=== PATIENT | female | born 1985 ===

== ENCOUNTER 2022-01-29 22:08 | Outpatient (CLI) | payer OTHER ==
[2022-01-30 00:49] LABS: Bacteria,Urine 1+ /HPF (Negative); Bilirubin,Urine NEG (Negative); Blood,Urine NEG (Negative); Color,Urine Yellow (Yellow); Mucus,Urine FEW /HPF; Protein,Urine <15 mg/dL mg/dL (Negative); RBC,Urine < 1.0 /HPF (0.0-6.0); Urobilinogen,Urine < 2.0 mg/dL (<2.0)
[2022-01-30] MEDS ORDERED: LIDOCAINE-MPF (1%) 10 MG/1 ML VIAL 5 ML INFILTRATI ONE (02:05)
--- NOTE | 2022-01-30 02:44 | Ultrasound Report ---
ULTRASOUND OBSTETRIC INDICATION / CLINICAL INFORMATION: WELLBEING. Clinical Gestational Age (GA): 19.4 weeks TECHNIQUE: Transabdominal. COMPARISON: None available. FINDINGS: There is a single intrauterine . Biparietal Diameter = 4.5 cm = 19 weeks, 5 day(s). Head Circumference = 16.6 cm = 19 weeks, 2 day(s). Abdominal Circumference = 14.0 cm = 19 weeks, 3 day(s). Femur Length = 2.7 cm = 18 weeks, 2 day(s). Average Ultrasound Age (AUA) = 19 weeks, 1 day(s). Heart Rate: 152 beats per minute. Estimated Weight in grams (if calculated): 267 Estimated Weight Growth Percentile (if calculated): Position: cephalic. Cervix: closed. Length in cm (if measured): Placenta: anterior and free of the os. No placental abruption Amniotic Fluid Volume: normal Amniotic Fluid Index (ZAY) in cm (if calculated): . Maternal Adnexa: No significant abnormality. IMPRESSION: 1. Single, living intrauterine with estimated sonographic age of 19 weeks, 1 day(s). 2. No significant sonographic abnormality. Signer Name: Yousuf Tracy MD Signed: 01/30/2022 2:39 AM Workstation Name: [id number]
[2022-01-30 03:13] VITALS: BP 108/61
== END 2022-01-30 03:30 | disposition home or self-care (01) ==
LOC: TRG 22:08 → APU 22:10 → TRG 01-30 03:30
PROVIDERS: ATTEND Obstetrics & Gynecology
DX: O26.892 Other specified pregnancy related conditions, second trimester (principal); R10.30 Lower abdominal pain, unspecified; Z87.891 Personal history of nicotine dependence; Z3A.19 19 weeks gestation of pregnancy
CPT/HCPCS: 76816; 81001; 96372; J0696; J3490; 76805

== ENCOUNTER 2022-02-16 18:51 | Outpatient (CLI) | payer OTHER ==
[2022-02-16 19:16] VITALS: BP 106/64
[2022-02-16 20:29] LABS: Hematocrit 34.8 % (30.3-42.9); Hemoglobin 11.2 gm/dl (10.1-14.3); Mean Corpuscular HGB Conc 32 % (30-34); Mean Corpuscular Volume 90 fl (79-97); Platelet Count 252 K/mm3 (140-440); Red Blood Count 3.85 M/mm3 (3.65-5.03); Red Cell Distribution Width 14.8 % (13.2-15.2)
[2022-02-16 21:13] LABS: Bilirubin,Urine NEG (Negative); Blood,Urine NEG (Negative); Color,Urine Colorless (Yellow); Protein,Urine <15 mg/dL mg/dL (Negative); Urobilinogen,Urine < 2.0 mg/dL (<2.0)
[2022-02-16 21:20] LABS: Bacteria,Urine 2+ /HPF (Negative)
--- NOTE | 2022-02-16 22:18 | Ultrasound Report ---
ULTRASOUND OBSTETRIC LIMITED INDICATION / CLINICAL INFORMATION: EFW, ZAY. Clinical Gestational Age (GA) in weeks, days: 20, 0 TECHNIQUE: Transabdominal and Transvaginal. COMPARISON: 01/29/2022 FINDINGS: HEART RATE (beats per minute): 138 AMNIOTIC FLUID INDEX (cm) = not calculated but within normal range subjective. (normal = 7-24 cm) PRESENTATION: Cephalic. Biparietal Diameter = 5.2 cm = 21, 6 weeks, days Head Circumference = 20.0 cm = 22, 1 weeks, days Abdominal Circumference = 80.0 cm = 22, 6 weeks, days Femur Length = 3.7 cm = 21, 5 weeks, days Average Ultrasound Age (AUA) = 22, 1 weeks, days Estimated weight 493 g. ADDITIONAL FINDINGS: Cervix is closed measuring 3.7 cm. IMPRESSION: 1. No significant abnormality. Signer Name: Jase Perez DO Signed: 02/16/2022 10:14 PM Workstation Name: [id number]
== END 2022-02-16 20:17 | disposition home or self-care (01) ==
LOC: TRG 18:51 → APU 18:57 → TRG 20:17
PROVIDERS: ATTEND Obstetrics & Gynecology
DX: O09.892 Supervision of other high risk pregnancies, second trimester (principal); Z3A.22 22 weeks gestation of pregnancy
CPT/HCPCS: 36415; 76815; 76816; 76817; 81001; 84112; 85027

== ENCOUNTER 2022-04-13 05:11 | Inpatient (IN) | payer OTHER ==
[2022-04-13] MEDS ORDERED: LACTATED RINGERS 1,000 ML ONE (05:43)
--- NOTE | 2022-04-13 06:58 | Ultrasound Report ---
Of the ultrasound INDICATION: well-being FINDINGS: Single live intrauterine in cephalic position. ZAY measures 15.4 cm. heart rate is 142 bpm. BPD measures 30 weeks 3 days. Head circumference 30 weeks 1 day. Abdominal circumfer ence 30 weeks 0 days. Femoral length 30 weeks 2 days. weight 15 12 g. IMPRESSION: Single live intrauterine as described above. Ultrasound age 30 weeks 2 days. Signer Name: Jama Contreras MD Signed: 04/13/2022 6:53 AM Workstation Name: [id number]
[2022-04-13] MEDS ORDERED: BUTORPHANOL 2 MG/1 ML INJ IV PRN (07:00)
[2022-04-13] MEDS ORDERED: AZITHROMYCIN 250 MG TAB PO STA (07:05)
--- NOTE | 2022-04-13 07:27 | History and Physical Report ---
History of Present Illness Date of examination: 04/13/22 Date of admission: 04/13/2022 Chief complaint: Leaking of fluid History of present illness: 36-year-old at 30 weeks gestation presents to OB triage complaining of sudden onset gush of fluid and continuous leaking of fluid. There is no vaginal bleeding. There is good movement. There are no contractions. In OB triage, the patient was suspected to have gross rupture membranes. ROM plus test is positive. The patient is admitted to labor and delivery under antepartum status for expectant management of premature rupture of membranes. 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 Family/Genetic History: none Social history: no significant social history - Obstetrical History Expected Date of Delivery: 06/22/22 Actual Gestation: 30 Week(s) 0 Day(s) : 2 Para: 0 Hx # Term Pregnancies: 0 Number of Pregnancies: 0 Spontaneous Abortions: 1 Induced : 0 Number of Living Children: 0 Medications and Allergies Allergies Allergy/AdvReac Type Severity Reaction Status Date / Time No Known Allergies Allergy Verified 01/30/22 02:32 Active Meds: Active Medications Acetaminophen (Acetaminophen 325 Mg Tab) 650 mg PO Q4H PRN PRN Reason: Pain, Mild (1-3) Betamethasone Acet/Betameth SodPhos (Betamet Acet/Betamet Na Ph 6 Mg/Ml Inj 5 Ml Mdv) 12 mg IM Q24HR PREMA Stop: 04/14/22 10:01 Butorphanol Tartrate (Butorphanol 2 Mg/1 Ml Inj) 1 mg IV Q2H PRN PRN Reason: Pain, Moderate(4-6) LABOR PAIN Lactated Ringer's (Lactated Ringers) 1,000 mls @ 125 mls/hr IV DIRECT PREMA Magnesium Sulfate (Magnesium Sulfate 40gm/1000ml) 40 gm in 1,000 mls @ 25 mls/hr IV DIRECT PREMA Stop: 04/14/22 07:59 Magnesium Sulfate (Magnesium Sulfate 4gm/100ml) 4 gm in 100 mls @ 300 mls/hr IV ONCE ONE Stop: 04/13/22 07:49 Review of Systems All systems: negative - Vital Signs Vital signs: Vital Signs Temp Resp Pulse Ox 98.2 F 14 100 04/13/22 05:23 04/13/22 05:23 04/13/22 05:23 Temp Pulse Resp BP Pulse Ox 98.2 F 98 H 14 114/59 100 04/13/22 05:23 04/13/22 06:43 04/13/22 05:23 04/13/22 05:30 04/13/22 06:43 - Physical Exam Breasts: Positive: normal Cardiovascular: Regular rate Lungs: Positive: Normal air movement Abdomen: Positive: normal appearance Genitourinary (Female): Positive: normal external genitalia, normal perenium Vulva: both: normal Vagina: Positive: normal moisture Uterus: Positive: enlarged Adnexa: both: normal Anus/Rectum: Positive: normal perianal skin Extremities: Positive: normal Deep Tendon Reflex Grade: Normal +2 - Obstetrical FHR: category 1 Uterine Contraction Monitor Mode: External Cervical Dilatation: 0 Uterine Contraction Pattern: Absent Results Abnormal lab results 04/13/22 Range/Units Unknown Membranes Rupture Positive A (Negative) All other labs normal. GBS culture ordered. Urine culture ordered. Gonorrhea/chlamydia DNA probe ordered. CBC ordered. Ultrasound: report reviewed (OB Ultrasound Limited= SLIUP. Vertex. Posterior plaenta. EFW= 1512 g (41st %-ile). ZAY= 15.4 cm.), image reviewed Assessment and Plan - Patient Problems (1) 30 weeks gestation of Current Visit: Yes Status: Acute Plan to address problem: care is up-to-date per the patient. Morning shift staff to obtain records from the office. (2) premature rupture of membranes (PPROM) with onset of labor within 24 hours of rupture in third trimester, antepartum Current Visit: Yes Status: Acute Plan to address problem: The patient appears to have gross rupture of membranes. ROM plus is positive. However, amniotic fluid index is 15.4 cm. Admit patient under antepartum status. Expectant management. Prolonged la tency. With Zithromax 1 g p.o. x1, ampicillin 2 g IV piggyback every 6 hours x48 hours and amoxicillin 500 mg p.o. every 8 hours x5 days to start 48 hours from now. Magnesium sulfate x24 hours for neuro prophylaxis was ordered. Betamethasone IM every 24 hours x2 doses to promote lung maturity was ordered. GBS culture, urine culture, gonorrhea/chlamydia DNA probes ordered. I recommend MFM consultation and NICU consultation. Expectant management for now until 34 weeks gestation. (3) AMA (advanced maternal age) multigravida 35+ Current Visit: Yes Status: Acute Plan to address problem: Morning shift obtain records from the office. Once records are obtained, evaluate for genetic screening. Maternal- medicine consultation is recommended.
[2022-04-13] MEDS ORDERED: MAGNESIUM SULFATE 4 GM/100 ML BAG IV ONE (07:30)
[2022-04-13 07:48] LABS: Hematocrit 33.5 % (30.3-42.9); Hemoglobin 10.8 gm/dl (10.1-14.3); Red Blood Count 3.81 M/mm3 (3.65-5.03)
[2022-04-13] MEDS ORDERED: MAGNESIUM SULFATE 40GM/1000ML 40 GM/1,000 ML BAG IV SCH (08:00)
[2022-04-13] MEDS: LACTATED RINGERS 1,000 ML IV SCH (08:45)
[2022-04-13] MEDS: BETAMET ACET/BETAMET NA PH 6 MG/ML INJ 5 ML MDV IM SCH (08:45)
[2022-04-13] MEDS: AMPICILLIN/NS 2 GM/100 ML 2 GM/100 ML BAG IV SCH ×2 (08:46→09:22)
[2022-04-13 12:17] LABS: Amphetamine Screen,Urine Negative; Benzodiazepines Screen,Urine Negative; Cannabinoid Screen,Urine Negative; Cocaine Screen,Urine Negative; Methadone Screen,Urine Negative; Opiate Screen,Urine Negative
[2022-04-13] MEDS: ACETAMINOPHEN 325 MG TAB PO PRN (12:28)
[2022-04-13 14:08] LABS: Alanine Aminotransferase 14 units/L (7-56); Blood Urea Nitrogen 8 mg/dL (7-17); Calcium 9.1 mg/dL (8.4-10.2); Hemolysis Index 0; Uric Acid 4.2 mg/dL (3.5-7.6)
[2022-04-13 14:20] LABS: BUN/Creatinine Ratio 27
--- NOTE | 2022-04-13 14:29 | XRay Report ---
CHEST 1 VIEW 04/13/2022 2:08 PM INDICATION / CLINICAL INFORMATION: shortness of breath, ; h/o lung abnormality. COMPARISON: None available. FINDINGS: SUPPORT DEVICES: None. HEART / MEDIASTINUM: No significant abnormality. LUNGS / PLEURA: No significant pulmonary abnormality. No significant pleural effusion. No pneumothora x. ADDITIONAL FINDINGS: No significant additional findings. IMPRESSION: 1. No acute abnormality of the chest. Signer Name: Derek Hodge MD Signed: 04/13/2022 2:25 PM Workstation Name: [id number]
[2022-04-13] MEDS ORDERED: VANCOMYCIN/NS 1 GM/250 ML 1 GM/250 ML BAG IV SCH (15:00)
--- NOTE | 2022-04-13 17:38 | Consultation ---
History of Present Illness Consult date: 04/13/22 Requesting physician: MARY KAY TURNER History of present illness: 36 YO EGA 30 wks admitted following SROM. She had a gush o fluid and has had a + ROM screen this on admission. She has orders for MgSO4, BMZ and IV antibiotics. She is wihtout complaints a this time. She denies any cramping, pressure LOF. 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 Family/Genetic History: none - Obstetrical History : 2 Medications and Allergies Allergies Allergy/AdvReac Type Severity Reaction Status Date / Time amoxicillin Allergy Shortness Verified 04/13/22 09:21 of Breath ampicillin Allergy Shortness Verified 04/13/22 09:21 of Breath Active Meds: Active Medications Acetaminophen (Acetaminophen 325 Mg Tab) 650 mg PO Q4H PRN PRN Reason: Pain, Mild (1-3) Last Admin: 04/13/22 12:28 Dose: 650 mg Betamethasone Acet/Betameth SodPhos (Betamet Acet/Betamet Na Ph 6 Mg/Ml Inj 5 Ml Mdv) 12 mg IM Q24HR PREMA Stop: 04/14/22 10:01 Last Admin: 04/13/22 08:45 Dose: 12 mg Butorphanol Tartrate (Butorphanol 2 Mg/1 Ml Inj) 1 mg IV Q2H PRN PRN Reason: Pain, Moderate(4-6) LABOR PAIN Lactated Ringer's (Lactated Ringers) 1,000 mls @ 125 mls/hr IV DIRECT PREMA Last Admin: 04/13/22 08:45 Dose: 75 mls/hr Magnesium Sulfate (Magnesium Sulfate 40gm/1000ml) 40 gm in 1,000 mls @ 25 mls/ hr IV DIRECT PREMA Stop: 04/14/22 07:59 Last Admin: 04/13/22 09:20 Dose: 1 gm/hr, 25 mls/hr Vancomycin HCl (Vancomycin/Ns 1 Gm/250 Ml) 1 gm in 250 mls @ 166.667 mls/hr IV Q12H PREMA; Protocol Stop: 04/15/22 14:59 Last Admin: 04/13/22 16:42 Dose: 166.667 mls/hr - Vital Signs Vital signs: Vital Signs Temp Resp Pulse Ox 98.2 F 14 100 04/13/22 05:23 04/13/22 05:23 04/13/22 05:23 Temp Pulse Resp BP Pulse Ox 98.1 F 112 H 18 123/60 99 04/13/22 15:38 04/13/22 17:26 04/13/22 15:38 04/13/22 17:08 04/13/22 17:26 - Obstetrical FHR: category 1 Uterine Contraction Pattern: Absent Results Result Diagrams: 04/13/22 06:35 04/13/22 12:11 Abnormal lab results 04/13/22 04/13/22 04/13/22 Range/Units 12:11 12:11 12:11 Sodium 136 L (137-145) mmol/L Creatinine 0.3 L (0.6-1.2) mg/dL Magnesium 3.20 H 3.10 H (1.7-2.3) mg/dL Membranes Rupture (Negative) 04/13/22 Range/Units Unknown Sodium (137-145) mmol/L Creatinine (0.6-1.2) mg/dL Magnesium (1.7-2.3) mg/dL Membranes Rupture Positive A (Negative) All other labs normal. Ultrasound: report reviewed Chest x-ray: report reviewed Assessment and Plan IMPRESSIONS: 1. IUP 30 weeks, with normal growth 2. Confirmed SROM with good residual ZAY noted earlier today 3. Reassuring tracing 4. Receiving BZ, MgSO4, Vancomycin 5. PCN allergy 6. Benign course prior to SROM 7. Low risk on NIPT, ONTD, GTT screening 8. Cat 1 tracing 9. No sign of labor, chorio, or compromise RECOMMENDATIONS: 1. I Agree with present management 2. Twice weekly BPP 3. Deliver for ususal OB indications, or at 34 weeks 4. [facility] will follow-up as requested
--- NOTE | 2022-04-13 18:02 | Event Note ---
Date: 04/13/22 pt evaluated and pt c/o shortness of breath. CXR done and same normal and pt reassured. Nurse told me that vanco given thru mag sulfate port, and pt feels very flushed. Nurse told to give med thru a separate port and slowly. Abx with vanco and zithro acceptable for 7day treatment. All questions encouraged and answered.
--- NOTE | 2022-04-13 19:58 | Consultation ---
Consult Note - Parent Education I met with parent(s) and discussed the following:: Need for NICU admission, Poss ible need for intubation and surfactant or other resp support, Temperature regulation, Head ultrasounds to evaluate IVH, Eye exams for ROP screening, Possible need for IV fluids/TPN and IV antibiotics, Possible need for umbilical lines, Importance of providing breast milk & encouraged pumping aft delivery, Donor breast milk if baby meets criteria after , Slow feeding advancement and monitoring of tolerance. NG/OG feeds, Need to monitor for jaundice, Data for survival & survival without significant co-morbidities Parent(s) demonstrated understanding of all the information:: Yes Additional Comment: Ms. Solano is a very pleasant 36 yo G2 addmitted to [facility] at 30 weeks gestation after feeling a gush of fluid which was later tested positive on ROM screen. Magnesium sulfate, betamethasone and IV antibiotics were started. Her labs are negative and GBS is not yet done (see PATIENT SERVICES SPECIALIST - H&P). A medical channel director was used to translate education to mother and her significant other in room. She verbalized understanding and asked apporopiate questions. She was assured that if her baby delivers sanjay, the Team would be in attendance. Assessment and Plan - Plan Plan: Agree with Mag & steroids Will attend delivery Please call NICU with questions
[2022-04-13] MEDS ORDERED: ERYTHROMYCIN BASE 250 MG CAPSULE DR PO SCH (20:00)
[2022-04-14] MEDS: GENTAMICIN/NS 80 MG/100 ML 100 ML IV SCH ×3 (00:57→17:49)
[2022-04-14] MEDS: ACETAMINOPHEN 325 MG TAB PO PRN (04:05)
[2022-04-14] MEDS: LACTATED RINGERS 1,000 ML IV SCH (09:01)
[2022-04-14] MEDS: BETAMET ACET/BETAMET NA PH 6 MG/ML INJ 5 ML MDV IM SCH (10:35)
--- NOTE | 2022-04-14 17:43 | Progress Note ---
Assessment and Plan A IUP @ 30 09/03 weeks PPROM Epigastric pain RLQ pain Decrease FM S/p Magnesium Sulfate for neuroprotection S/p Celestone P Abdominal US - r/o gallstones RLQ pain /Decrease FM - OB US - r/o abruption. BPP. Monitor for chorioamnionitis Deliver at 34 weeks or before if indicated Continue hospital bed rest Subjective Date of service: 04/14/22 Principal diagnosis: PPROM @ 30 09/03 Interval history: Pt. c/o RUQ pain starting @ 330a She denies n/v, headache, blurry vision or scotoma. No further LOF, fever, chills SOB or ctx. Decrease FM. Pt. also c/o RLQ pain lateral and below the umbilicus. Objective - Constitutional Vitals: Vital Signs - 12hr 04/14/22 04/14/22 04/14/22 05:46 05:51 05:56 Temperature Pulse Rate 91 H 83 86 Respiratory Rate Blood Pressure Blood Pressure [Right] O2 Sat by Pulse 98 98 97 Oximetry O2 Sat by Pulse Oximetry [ Bilateral] 04/14/22 04/14/22 04/14/22 06:01 06:06 06:11 Temperature Pulse Rate 83 82 84 Respiratory Rate Blood Pressure Blood Pressure [Right] O2 Sat by Pulse 97 97 97 Oximetry O2 Sat by Pulse Oximetry [ Bilateral] 04/14/22 04/14/22 04/14/22 06:16 06:21 06:26 Temperature Pulse Rate 85 81 91 H Respiratory Rate Blood Pressure Blood Pressure [Right] O2 Sat by Pulse 98 97 98 Oximetry O2 Sat by Pulse Oximetry [ Bilateral] 04/14/22 04/14/22 04/14/22 06:31 06:36 06:41 Temperature Pulse Rate 86 95 H 88 Respiratory Rate Blood Pressure Blood Pressure [Right] O2 Sat by Pulse 98 98 100 Oximetry O2 Sat by Pulse Oximetry [ Bilateral] 04/14/22 04/14/22 04/14/22 06:46 06:51 06:56 Temperature Pulse Rate 78 78 81 Respiratory Rate Blood Pressure Blood Pressure [Right] O2 Sat by Pulse 100 99 98 Oximetry O2 Sat by Pulse Oximetry [ Bilateral] 04/14/22 04/14/22 04/14/22 07:01 07:06 07:11 Temperature Pulse Rate 80 84 80 Respiratory Rate Blood Pressure Blood Pressure [Right] O2 Sat by Pulse 99 98 98 Oximetry O2 Sat by Pulse Oximetry [ Bilateral] 04/14/22 04/14/22 04/14/22 07:16 07:21 07:26 Temperature Pulse Rate 77 83 84 Respiratory Rate Blood Pressure Blood Pressure [Right] O2 Sat by Pulse 99 98 98 Oximetry O2 Sat by Pulse Oximetry [ Bilateral] 04/14/22 04/14/22 04/14/22 07:31 07:36 07:41 Temperature Pulse Rate 93 H 76 82 Respiratory Rate Blood Pressure Blood Pressure [Right] O2 Sat by Pulse 97 99 99 Oximetry O2 Sat by Pulse Oximetry [ Bilateral] 04/14/22 04/14/22 04/14/22 07:46 07:51 07:56 Temperature Pulse Rate 82 83 84 Respiratory Rate Blood Pressure Blood Pressure [Right] O2 Sat by Pulse 97 97 97 Oximetry O2 Sat by Pulse Oximetry [ Bilateral] 04/14/22 04/14/22 04/14/22 08:01 08:06 08:11 Temperature Pulse Rate 94 H 86 83 Respiratory Rate Blood Pressure Blood Pressure [Right] O2 Sat by Pulse 97 97 97 Oximetry O2 Sat by Pulse Oximetry [ Bilateral] 04/14/22 04/14/22 04/14/22 08:16 08:21 08:26 Temperature Pulse Rate 86 83 86 Respiratory Rate Blood Pressure Blood Pressure [Right] O2 Sat by Pulse 96 97 97 Oximetry O2 Sat by Pulse Oximetry [ Bilateral] 04/14/22 04/14/22 04/14/22 08:31 08:36 08:41 Temperature Pulse Rate 113 H 80 81 Respiratory Rate Blood Pressure Blood Pressure [Right] O2 Sat by Pulse 97 97 97 Oximetry O2 Sat by Pulse Oximetry [ Bilateral] 04/14/22 04/14/22 04/14/22 08:46 08:51 08:56 Temperature Pulse Rate 79 93 H 94 H Respiratory Rate Blood Pressure Blood Pressure [Right] O2 Sat by Pulse 97 98 99 Oximetry O2 Sat by Pulse Oximetry [ Bilateral] 04/14/22 04/14/22 04/14/22 08:58 09:00 09:01 Temperature 98.4 F Pulse Rate 85 Respiratory 18 Rate Blood Pressure 120/62 Blood Pressure [Right] O2 Sat by Pulse 100 100 Oximetry O2 Sat by Pulse 99 Oximetry [ Bilateral] 04/14/22 04/14/22 04/14/22 09:06 09:11 09:16 Temperature Pulse Rate 86 94 H 82 Respiratory Rate Blood Pressure Blood Pressure [Right] O2 Sat by Pulse 98 94 97 Oximetry O2 Sat by Pulse Oximetry [ Bilateral] 04/14/22 04/14/22 04/14/22 09:21 09:26 09:31 Temperature Pulse Rate 100 H 94 H 85 Respiratory Rate Blood Pressure Blood Pressure [Right] O2 Sat by Pulse 99 100 99 Oximetry O2 Sat by Pulse Oximetry [ Bilateral] 04/14/22 04/14/22 04/14/22 09:36 09:41 09:46 Temperature Pulse Rate 89 93 H 95 H Respiratory Rate Blood Pressure Blood Pressure [Right] O2 Sat by Pulse 99 99 99 Oximetry O2 Sat by Pulse Oximetry [ Bilateral] 04/14/22 04/14/22 04/14/22 09:51 09:56 10:01 Temperature Pulse Rate 94 H 93 H 86 Respiratory Rate Blood Pressure 109/60 Blood Pressure [Right] O2 Sat by Pulse 99 98 98 Oximetry O2 Sat by Pulse Oximetry [ Bilateral] 04/14/22 04/14/22 04/14/22 10:06 10:11 10:16 Temperature Pulse Rate 97 H 90 96 H Respiratory Rate Blood Pressure Blood Pressure [Right] O2 Sat by Pulse 98 99 100 Oximetry O2 Sat by Pulse Oximetry [ Bilateral] 04/14/22 04/14/22 04/14/22 10:21 10:26 10:31 Temperature Pulse Rate 90 113 H 102 H Respiratory Rate Blood Pressure Blood Pressure [Right] O2 Sat by Pulse 99 99 100 Oximetry O2 Sat by Pulse Oximetry [ Bilateral] 04/14/22 04/14/22 04/14/22 10:36 10:41 13:06 Temperature Pulse Rate 97 H 108 H 97 H Respiratory Rate Blood Pressure 108/55 Blood Pressure [Right] O2 Sat by Pulse 99 99 98 Oximetry O2 Sat by Pulse Oximetry [ Bilateral] 04/14/22 04/14/22 04/14/22 13:11 13:16 13:21 Temperature 98.4 F Pulse Rate 99 H 96 H 103 H Respiratory 18 Rate Blood Pressure Blood Pressure 108/55 [Right] O2 Sat by Pulse 98 98 98 Oximetry O2 Sat by Pulse Oximetry [ Bilateral] 04/14/22 04/14/22 04/14/22 13:26 13:31 13:36 Temperature Pulse Rate 104 H 99 H 100 H Respiratory Rate Blood Pressure Blood Pressure [Right] O2 Sat by Pulse 99 99 99 Oximetry O2 Sat by Pulse Oximetry [ Bilateral] 04/14/22 04/14/22 04/14/22 13:41 13:47 13:52 Temperature Pulse Rate 106 H 114 H 102 H Respiratory Rate Blood Pressure Blood Pressure [Right] O2 Sat by Pulse 98 85 100 Oximetry O2 Sat by Pulse Oximetry [ Bilateral] 04/14/22 04/14/22 04/14/22 13:57 14:02 14:07 Temperature Pulse Rate 102 H 103 H 97 H Respiratory Rate Blood Pressure Blood Pressure [Right] O2 Sat by Pulse 100 100 100 Oximetry O2 Sat by Pulse Oximetry [ Bilateral] 04/14/22 04/14/22 04/14/22 14:12 14:17 14:22 Temperature Pulse Rate 104 H 101 H 99 H Respiratory Rate Blood Pressure Blood Pressure [Right] O2 Sat by Pulse 100 99 100 Oximetry O2 Sat by Pulse Oximetry [ Bilateral] 04/14/22 04/14/22 04/14/22 14:27 14:32 14:37 Temperature Pulse Rate 102 H 102 H 109 H Respiratory Rate Blood Pressure Blood Pressure [Right] O2 Sat by Pulse 100 99 100 Oximetry O2 Sat by Pulse Oximetry [ Bilateral] 04/14/22 04/14/22 04/14/22 14:42 14:43 14:47 Temperature Pulse Rate 100 H 98 H 92 H Respiratory Rate Blood Pressure Blood Pressure [Right] O2 Sat by Pulse 96 91 100 Oximetry O2 Sat by Pulse Oximetry [ Bilateral] 04/14/22 04/14/22 04/14/22 14:52 14:57 15:02 Temperature Pulse Rate 110 H 105 H 103 H Respiratory Rate Blood Pressure Blood Pressure [Right] O2 Sat by Pulse 99 100 99 Oximetry O2 Sat by Pulse Oximetry [ Bilateral] 04/14/22 04/14/22 04/14/22 15:05 15:07 15:12 Temperature Pulse Rate 117 H 106 H 100 H Respiratory Rate Blood Pressure Blood Pressure [Right] O2 Sat by Pulse 88 99 99 Oximetry O2 Sat by Pulse Oximetry [ Bilateral] 04/14/22 04/14/22 04/14/22 15:22 15:23 15:27 Temperature Pulse Rate 51 L 99 H Respiratory Rate Blood Pressure Blood Pressure [Right] O2 Sat by Pulse 86 88 98 Oximetry O2 Sat by Pulse Oximetry [ Bilateral] 04/14/22 04/14/22 04/14/22 15:32 15:37 15:42 Temperature Pulse Rate 99 H 104 H 95 H Respiratory Rate Blood Pressure Blood Pressure [Right] O2 Sat by Pulse 99 99 99 Oximetry O2 Sat by Pulse Oximetry [ Bilateral] 04/14/22 04/14/22 04/14/22 15:47 15:52 15:57 Temperature Pulse Rate 108 H 113 H 93 H Respiratory Rate Blood Pressure Blood Pressure [Right] O2 Sat by Pulse 97 97 100 Oximetry O2 Sat by Pulse Oximetry [ Bilateral] 04/14/22 04/14/22 04/14/22 16:02 16:07 16:12 Temperature Pulse Rate 110 H 107 H 92 H Respiratory Rate Blood Pressure Blood Pressure [Right] O2 Sat by Pulse 99 99 100 Oximetry O2 Sat by Pulse Oximetry [ Bilateral] 04/14/22 04/14/22 04/14/22 16:17 16:20 16:22 Temperature Pulse Rate 98 H 103 H 98 H Respiratory Rate Blood Pressure Blood Pressure [Right] O2 Sat by Pulse 99 94 100 Oximetry O2 Sat by Pulse Oximetry [ Bilateral] 04/14/22 04/14/22 04/14/22 16:27 16:32 16:37 Temperature Pulse Rate 101 H 111 H 106 H Respiratory Rate Blood Pressure Blood Pressure [Right] O2 Sat by Pulse 100 99 100 Oximetry O2 Sat by Pulse Oximetry [ Bilateral] 04/14/22 04/14/22 04/14/22 16:42 16:47 16:52 Temperature Pulse Rate 107 H 112 H 109 H Respiratory Rate Blood Pressure Blood Pressure [Right] O2 Sat by Pulse 100 100 99 Oximetry O2 Sat by Pulse Oximetry [ Bilateral] 04/14/22 04/14/22 04/14/22 16:57 17:02 17:07 Temperature Pulse Rate 107 H 108 H 110 H Respiratory Rate Blood Pressure Blood Pressure [Right] O2 Sat by Pulse 99 100 100 Oximetry O2 Sat by Pulse Oximetry [ Bilateral] 04/14/22 04/14/22 04/14/22 17:12 17:17 17:22 Temperature Pulse Rate 99 H 88 111 H Respiratory Rate Blood Pressure Blood Pressure [Right] O2 Sat by Pulse 100 99 100 Oximetry O2 Sat by Pulse Oximetry [ Bilateral] 04/14/22 04/14/2222 17:27 17:32 17:37 Temperature Pulse Rate 90 105 H 94 H Respiratory Rate Blood Pressure Blood Pressure [Right] O2 Sat by Pulse 100 99 100 Oximetry O2 Sat by Pulse Oximetry [ Bilateral] General appearance: Present: no acute distress - Respiratory Respiratory effort: normal Respiratory: negative: CTA - Cardiovascular Rhythm: regular Extremities: No edema - Gastrointestinal General gastrointestinal: Present: other (focal tenderness below right breast close to midline. Right lower quadrant tenderness laterally and below umbilicus ) - Labs CBC & Chem 7: 04/13/22 06:35 04/13/22 12:11 Labs: Abnormal lab results 04/13/22 Range/Units 19:38 Magnesium 3.10 H (1.7-2.3) mg/dL Medications & Allergies - Medications Allergies/Adverse Reactions: Allergies amoxicillin Allergy (Verified 04/13/22 09:21) Shortness of Breath ampicillin Allergy (Verified 04/13/22 09:21) Shortness of Breath Active Medications: Generic Name Dose Route Start Last Admin Trade Name Freq PRN Reason Stop Dose Admin Acetaminophen 650 mg 04/13/22 07:00 04/14/22 04:05 Acetaminophen 325 Mg Tab PO 650 mg Q4H PRN Administration Pain, Mild (1-3) Butorphanol Tartrate 1 mg 04/13/22 07:00 Butorphanol 2 Mg/1 Ml Inj IV Q2H PRN Pain, Moderate(4-6) LABOR PAIN Clindamycin HCl 300 mg 04/16/22 07:45 Clindamycin 300 Mg Cap PO 04/21/22 07:44 Q8H PREMA Protocol Lactated Ringer's 1,000 mls @ 125 mls/hr 04/13/22 07:00 04/14/22 09:01 Lactated Ringers IV 100 mls/hr DIRECT PREMA Administration Clindamycin HCl 900 mg in 50 mls @ 100 mls/hr 04/13/22 23:45 04/14/22 17:15 Cleocin 900 Mg/50 Ml IV 04/15/22 23:44 100 mls/hr Q8H PREMA Administration Protocol Gentamicin Sulfate/Sodium Chloride 100 mls @ 200 mls/hr 04/13/22 23:45 04/14/22 09:44 Gentamicin/Ns 80 Mg/100 Ml IV 04/15/22 23:44 200 mls/hr Q8H PREMA Administration
--- NOTE | 2022-04-14 20:45 | Ultrasound Report ---
ULTRASOUND OBSTETRIC LIMITED ULTRASOUND BIOPHYSICAL PROFILE INDICATION / CLINICAL INFORMATION: right side abdominal tenderness, R/O abruption. Clinical Gestational Age (GA): 30.1 weeks.days COMPARISON: 04/13/2022 FINDINGS: BREATHING MOVEMENT = 0 GROSS BODY MOVEMENT = 0 TONE = 2 QUALITATIVE AMNIOTIC FLUID VOLUME = 2 TOTAL BIOPHYSICAL SCORE = 4/8 HEART RATE (beats per minute): 153 AMNIOTIC FLUID INDEX (cm) = 12.6 (normal = 7-24 cm) PRESENTATION: Cephalic. ADDITIONAL FINDINGS: No evidence for abruption. Placenta is right lateral. IMPRESSION: 1. Biophysical Score = 4/8 2. No evidence for placental abruption. Signer Name: Horace Dempsey MD Signed: 04/14/2022 8:40 PM Workstation Name: [id number]
--- NOTE | 2022-04-14 20:47 | Ultrasound Report ---
ULTRASOUND ABDOMEN, COMPLETE INDICATION: epigastric pain. COMPARISON: No relevant prior imaging study available. FINDINGS: Pancreas: No significant abnormality. Abdominal Aorta: No significant abnormality. IVC: No significant abnormality. Liver: The liver measures 19 cm in length. Diffusely increased hepatic echogenicity which typically i ndicates hepatic steatosis.. Normal hepatopedal blood flow in the main portal vein. Gallbladder: No significant abnormality. Bile ducts: No significant abnormality. Common bile duct measures 2 mm. Right kidney: 12.5 cm in length. No significant abnormality. Left kidney: 11.2 cm in length. No significant abnormality. Spleen: No significant abnormality. Free fluid: None. Additional Findings: None. IMPRESSION: 1. Hepatomegaly with findings suggesting hepatic steatosis. Signer Name: Horace Dempsey MD Signed: 04/14/2022 8:42 PM Workstation Name: [id number]
[2022-04-15] MEDS: GENTAMICIN/NS 80 MG/100 ML 100 ML IV SCH ×3 (02:46→20:31)
[2022-04-15 07:08] LABS: INR 0.93 (0.87-1.13); Partial Thromboplastin Time 23.9 Sec. (24.2-36.6)
[2022-04-15 07:19] LABS: Alanine Aminotransferase 12 units/L (7-56); Albumin 3.4 g/dL (3.9-5); BUN/Creatinine Ratio 27; Blood Urea Nitrogen 8 mg/dL (7-17); Calcium 9.2 mg/dL (8.4-10.2); HDL Cholesterol 108 mg/dL (40-59); Hemolysis Index 2; LDL Cholesterol,Direct 98 mg/dL (50-130)
[2022-04-15 07:30] LABS: Hepatitis B Surface Antigen Non-Reactive (Negative); Hepatitis C Virus Antibody Non-Reactive (NonReactive)
[2022-04-15] MEDS ORDERED: AMOXICILLIN 500 MG CAP PO SCH (07:30)
[2022-04-15] MEDS: PRENATAL VIT27-FE FUMARATE-FOLIC ACID VIT TAB PO SCH (11:52)
--- NOTE | 2022-04-15 14:02 | Progress Note ---
Subjective - Subjective Principal diagnosis: PPROM @ 30 09/03 Objective - Vital Signs Latest vital signs: Vital Signs Temp Pulse Resp BP BP Pulse Ox Pulse Ox 04/15/22 14:00 80 100 04/15/22 13:55 94 H 100 04/15/22 13:50 89 99 04/15/22 13:45 90 100 04/15/22 13:40 89 100 04/15/22 13:35 90 100 04/15/22 13:30 100 H 100 04/15/22 13:25 89 100 04/15/22 13:20 96 H 100 04/15/22 13:15 93 H 100 04/15/22 13:10 98 H 100 04/15/22 13:05 98 H 100 04/15/22 13:00 101 H 100 04/15/22 12:55 97 H 100 04/15/22 12:50 95 H 100 04/15/22 12:45 98 H 95 04/15/22 12:44 101 H 82 L 04/15/22 12:37 92 H 98 04/15/22 12:32 92 H 98 04/15/22 12:27 92 H 97 04/15/22 12:22 90 98 04/15/22 12:17 91 H 98 04/15/22 12:12 95 H 98 04/15/22 12:07 100 H 99 04/15/22 12:02 101 H 99 04/15/22 11:57 104 H 99 04/15/22 11:52 106 H 99 04/15/22 11:47 95 H 98 04/15/22 11:42 92 H 99 04/15/22 11:39 96 H 100/55 04/15/22 11:37 97 H 99 04/15/22 11:36 98.4 F 97 H 16 100/55 04/15/22 11:32 91 H 100 04/15/22 11:27 94 H 100 04/15/22 11:22 100 H 100 04/15/22 11:17 99 H 100 04/15/22 11:12 100 H 100 04/15/22 11:07 100 H 100 04/15/22 11:02 104 H 99 04/15/22 10:57 102 H 99 04/15/22 10:52 108 H 98 04/15/22 10:47 89 96 04/15/22 10:42 108 H 97 04/15/22 10:37 107 H 97 04/15/22 10:32 101 H 97 04/15/22 10:27 96 H 96 04/15/22 10:22 93 H 96 04/15/22 10:17 89 96 04/15/22 10:12 90 97 04/15/22 10:07 90 97 04/15/22 10:02 88 97 04/15/22 09:57 87 97 04/15/22 09:52 88 97 04/15/22 09:47 90 97 04/15/22 09:42 86 97 04/15/22 09:37 77 97 04/15/22 09:32 85 97 04/15/22 09:27 83 96 04/15/22 09:22 82 96 04/15/22 09:17 86 97 04/15/22 09:12 87 96 04/15/22 09:07 86 96 04/15/22 09:02 84 97 04/15/22 08:57 79 97 04/15/22 08:52 80 97 04/15/22 08:47 89 98 04/15/22 08:42 91 H 96 04/15/22 08:37 85 96 04/15/22 08:32 84 96 04/15/22 08:27 111 H 98 04/15/22 08:22 91 H 97 04/15/22 08:17 89 97 04/15/22 08:12 92 H 97 04/15/22 08:07 90 97 04/15/22 08:02 94 H 97 04/15/22 07:57 89 97 04/15/22 07:52 91 H 97 04/15/22 07:47 99 H 98 04/15/22 07:42 91 H 97 04/15/22 07:37 104 H 97 04/15/22 07:32 87 99 04/15/22 07:27 88 100 04/15/22 07:22 88 100 04/15/22 07:17 113 H 98 04/15/22 07:10 89 99 04/15/22 07:05 87 100 04/15/22 07:00 102 H 99 04/15/22 06:55 91 H 99 04/15/22 06:50 96 H 96 04/15/22 06:48 92 H 91 04/15/22 06:45 99 H 100 04/15/22 06:42 98.3 F 88 14 122/64 100 04/15/22 06:41 87 122/64 04/15/22 06:40 100 H 99 04/15/22 06:35 107 H 98 04/15/22 06:30 85 96 04/15/22 06:25 87 95 04/15/22 06:20 89 95 04/15/22 06:15 87 96 04/15/22 06:10 87 95 04/15/22 06:05 84 95 04/15/22 06:00 83 96 04/15/22 05:55 82 96 04/15/22 05:50 84 96 04/15/22 05:45 84 96 04/15/22 05:40 84 96 04/15/22 05:35 88 96 04/15/22 05:30 89 96 04/15/22 05:25 91 H 97 04/15/22 05:20 95 H 96 04/15/22 05:15 100 H 96 04/15/22 05:11 104 H 88 04/15/22 05:10 94 H 96 04/15/22 05:05 89 96 04/15/22 05:00 89 95 04/15/22 04:55 89 95 04/15/22 04:50 88 96 04/15/22 04:45 90 96 04/15/22 04:40 87 95 04/15/22 04:35 89 96 04/15/22 04:30 88 96 04/15/22 04:25 87 96 04/15/22 04:20 84 96 04/15/22 04:15 86 97 04/15/22 04:10 89 97 04/15/22 04:05 89 97 04/15/22 04:00 91 H 96 04/15/22 03:54 89 97 04/15/22 03:50 89 97 04/15/22 03:44 85 96 04/15/22 03:40 106 H 97 04/15/22 03:35 90 96 04/15/22 03:29 90 96 04/15/22 03:25 92 H 97 04/15/22 03:19 93 H 97 04/15/22 03:14 85 98 04/15/22 03:10 84 97 04/15/22 03:05 82 96 04/15/22 03:00 108 H 97 08/19/22 02:55 83 96 04/15/22 02:49 83 97 04/15/22 02:44 82 97 04/15/22 02:39 84 96 04/15/22 02:34 84 96 04/15/22 02:29 81 96 04/15/22 02:24 83 96 04/15/22 02:19 83 96 04/15/22 02:14 77 97 04/15/22 02:09 77 97 04/15/22 02:04 79 97 04/15/22 01:59 86 98 04/15/22 01:54 89 98 04/15/22 01:53 98.2 F 88 16 107/55 107/55 98 04/15/22 01:49 88 98 04/15/22 01:44 86 98 04/15/22 01:39 87 99 04/15/22 01:34 85 100 04/15/22 01:29 90 100 04/15/22 01:24 91 H 99 04/15/22 01:19 95 H 100 04/15/22 01:14 92 H 100 04/15/22 01:09 90 100 04/15/22 01:04 98 H 99 04/15/22 00:59 86 100 04/15/22 00:54 90 99 04/15/22 00:49 87 100 04/15/22 00:44 87 100 04/15/22 00:39 87 100 04/15/22 00:34 94 H 100 04/15/22 00:25 89 100 04/15/22 00:20 91 H 100 04/15/22 00:15 94 H 100 04/15/22 00:10 88 100 04/15/22 00:05 91 H 100 04/15/22 00:00 89 100 04/14/22 23:55 103 H 99 04/14/22 23:50 89 100 04/14/22 23:45 80 100 04/14/22 23:40 81 100 04/14/22 23:35 75 81 L 04/14/22 23:25 91 H 100 04/14/22 23:20 93 H 100 04/14/22 23:15 86 99 04/14/22 23:10 90 100 04/14/22 23:05 91 H 100 04/14/22 23:00 92 H 100 08/18/22 22:55 90 100 1822 22:50 98 H 100 1822 22:45 92 H 100 1822 22:40 88 100 1822 22:35 96 H 99 1822 22:30 90 100 1822 22:25 89 99 1822 22:20 90 100 1822 22:15 90 100 1822 22:10 92 H 100 1822 22:05 103 H 99 1822 22:00 93 H 99 1822 20:38 96 H 99 1822 20:34 97 H 111/62 1822 20:33 98.6 F 103 H 16 111/62 99 1822 20:28 112 H 99 1822 20:24 99 1822 20:23 102 H 100 1822 20:18 100 H 100 1822 20:13 123 H 99 22 20:08 104 H 99 18 20:03 104 H 98 1822 19:58 103 H 100 1822 19:53 102 H 100 1822 19:48 103 H 97 1822 19:43 96 H 100 1822 19:38 92 H 100 1822 19:33 99 H 100 1822 19:28 97 H 100 1822 19:23 104 H 100 1822 19:18 95 H 100 1822 19:13 105 H 100 1822 19:08 104 H 100 1822 19:03 94 H 100 1822 18:58 91 H 100 1822 18:53 95 H 100 1822 18:50 104 H 93 1822 18:48 105 H 98 1822 18:42 91 H 100 1822 18:37 89 99 1822 18:32 85 99 1822 18:27 94 H 97 1822 18:22 86 96 1822 18:17 89 96 1822 18:12 87 97 1822 18:07 84 97 04/14/22 18:02 90 97 04/14/22 17:57 94 H 99 04/14/22 17:52 98.4 F 90 20 95/56 95/56 99 04/14/22 17:51 90 89/55 04/14/22 17:47 91 H 100 04/14/22 17:42 90 100 04/14/22 17:37 94 H 100 04/14/22 17:32 105 H 99 04/14/22 17:27 90 100 04/14/22 17:22 111 H 100 04/14/22 17:17 88 99 04/14/22 17:12 99 H 100 04/14/22 17:07 110 H 100 04/14/22 17:02 108 H 100 04/14/22 16:57 107 H 99 04/14/22 16:52 109 H 99 04/14/22 16:47 112 H 100 04/14/22 16:42 107 H 100 04/14/22 16:37 106 H 100 04/14/22 16:32 111 H 99 04/14/22 16:27 101 H 100 04/14/22 16:22 98 H 100 04/14/22 16:20 103 H 94 04/14/22 16:17 98 H 99 04/14/22 16:12 92 H 100 04/14/22 16:07 107 H 99 04/14/22 16:02 110 H 99 04/14/22 15:57 93 H 100 04/14/22 15:52 113 H 97 04/14/22 15:47 108 H 97 04/14/22 15:42 95 H 99 04/14/22 15:37 104 H 99 04/14/22 15:32 99 H 99 04/14/22 15:27 99 H 98 04/14/22 15:23 51 L 88 04/14/22 15:22 86 04/14/22 15:12 100 H 99 04/14/22 15:07 106 H 99 04/14/22 15:05 117 H 88 04/14/22 15:02 103 H 99 04/14/22 14:57 105 H 100 04/14/22 14:52 110 H 99 04/14/22 14:47 92 H 100 04/14/22 14:43 98 H 91 04/14/22 14:42 100 H 96 04/14/22 14:37 109 H 100 04/14/22 14:32 102 H 99 04/14/22 14:27 102 H 100 04/14/22 14:22 99 H 100 04/14/22 14:17 101 H 99 04/14/22 14:12 104 H 100 04/14/22 14:07 97 H 100 04/14/22 14:02 103 H 100 Intake and Output 04/14/22 04/15/22 04/15/22 22:59 06:59 14:59 Intake Total 150 150 Balance 150 150 Intake: IV 150 150 CLEOCIN 900 MG/50 mL 900 50 50 mg In 50 ml @ 100 mls/hr IV Q8H PREMA Rx#:[id number] Gentamicin/Ns 80 mg/100 100 100 ml 100 ml @ 200 mls/hr IV Q8H PREMA Rx#:[id number] Other: # Voids Void 3 - Labs Labs: Abnormal lab results 04/15/22 04/15/22 Range/Units 06:29 06:29 APTT 23.9 L (24.2-36.6) Sec. Carbon Dioxide 20 L (22-30) mmol/L Creatinine 0.3 L (0.6-1.2) mg/dL Glucose 113 H (65-100) mg/dL Total Protein 6.2 L (6.3-8.2) g/dL Albumin 3.4 L (3.9-5) g/dL Triglycerides 174 H (2-149) mg/dL Cholesterol 216 H (50-199) mg/dL HDL Cholesterol 108 H (40-59) mg/dL
--- NOTE | 2022-04-15 17:19 | Ultrasound Report ---
ULTRASOUND OBSTETRIC LIMITED ULTRASOUND BIOPHYSICAL PROFILE INDICATION / CLINICAL INFORMATION: Well Being. Clinical Gestational Age (GA) in weeks, days: 30 weeks 2 days TECHNIQUE: Transabdominal. COMPARISON: Biophysical profile performed yesterday. FINDINGS: BREATHING MOVEMENT = 2 GROSS BODY MOVEMENT = 2 TONE = 2 QUALITATIVE AMNIOTIC FLUID VOLUME = 2 TOTAL BIOPHYSICAL SCORE = 8/8 HEART RATE (beats per minute): 157 bpm PRESENTATION: Cephalic. ADDITIONAL FINDINGS: None. IMPRESSION: 1. Biophysical Score = 8/8 Scribed by: Leonor Solorzano RDMS, RVT, RMSKS Scribed: 04/15/2022 3:18 PM I have reviewed the images, agree with this report, and edited this report as needed. Signer Name: Yousuf Tracy MD Signed: 04/15/2022 5:14 PM Workstation Name: [id number]
--- NOTE | 2022-04-15 17:56 | Progress Note ---
Assessment and Plan O:Abdominal U/S Neg for gall stones A IUP @ 30 2/ weeks PPROM S/p Magnesium Sulfate for neuroprotection S/p Celestone P: Monitor for chorioamnionitis Deliver at 34 weeks or before if indicated Continue hospital bed rest Subjective Principal diagnosis: PPROM @ 30 2 Objective - Constitutional Vitals: Vital Signs - 12hr 04/15/22 04/15/22 04/15/22 06:00 06:05 06:10 Temperature Pulse Rate 83 84 87 Respiratory Rate Blood Pressure Blood Pressure [Right] O2 Sat by Pulse 96 95 95 Oximetry 04/15/22 04/15/22 04/15/22 06:15 06:20 06:25 Temperature Pulse Rate 87 89 87 Respiratory Rate Blood Pressure Blood Pressure [Right] O2 Sat by Pulse 96 95 95 Oximetry 04/15/22 04/15/22 04/15/22 06:30 06:35 06:40 Temperature Pulse Rate 85 107 H 100 H Respiratory Rate Blood Pressure Blood Pressure [Right] O2 Sat by Pulse 96 98 99 Oximetry 04/15/22 04/15/22 04/15/22 06:41 06:42 06:45 Temperature 98.3 F Pulse Rate 87 88 99 H Respiratory 14 Rate Blood Pressure 122/64 Blood Pressure 122/64 [Right] O2 Sat by Pulse 100 100 Oximetry 04/15/22 04/15/22 04/15/22 06:48 06:50 06:55 Temperature Pulse Rate 92 H 96 H 91 H Respiratory Rate Blood Pressure Blood Pressure [Right] O2 Sat by Pulse 91 96 99 Oximetry 04/15/22 04/15/22 04/15/22 07:00 07:05 07:10 Temperature Pulse Rate 102 H 87 89 Respiratory Rate Blood Pressure Blood Pressure [Right] O2 Sat by Pulse 99 100 99 Oximetry 04/15/22 04/15/22 04/15/22 07:17 07:22 07:27 Temperature Pulse Rate 113 H 88 88 Respiratory Rate Blood Pressure Blood Pressure [Right] O2 Sat by Pulse 98 100 100 Oximetry 04/15/22 04/15/22 04/15/22 07:32 07:37 07:42 Temperature Pulse Rate 87 104 H 91 H Respiratory Rate Blood Pressure Blood Pressure [Right] O2 Sat by Pulse 99 97 97 Oximetry 04/15/22 04/15/22 04/15/22 07:47 07:52 07:57 Temperature Pulse Rate 99 H 91 H 89 Respiratory Rate Blood Pressure Blood Pressure [Right] O2 Sat by Pulse 98 97 97 Oximetry 04/15/22 04/15/22 04/15/22 08:02 08:07 08:12 Temperature Pulse Rate 94 H 90 92 H Respiratory Rate Blood Pressure Blood Pressure [Right] O2 Sat by Pulse 97 97 97 Oximetry 04/15/22 04/15/22 04/15/22 08:17 08:22 08:27 Temperature Pulse Rate 89 91 H 111 H Respiratory Rate Blood Pressure Blood Pressure [Right] O2 Sat by Pulse 97 97 98 Oximetry 04/15/22 04/15/22 04/15/22 08:32 08:37 08:42 Temperature Pulse Rate 84 85 91 H Respiratory Rate Blood Pressure Blood Pressure [Right] O2 Sat by Pulse 96 96 96 Oximetry 04/15/22 04/15/22 04/15/22 08:47 08:52 08:57 Temperature Pulse Rate 89 80 79 Respiratory Rate Blood Pressure Blood Pressure [Right] O2 Sat by Pulse 98 97 97 Oximetry 04/15/22 04/15/22 04/15/22 09:02 09:07 09:12 Temperature Pulse Rate 84 86 87 Respiratory Rate Blood Pressure Blood Pressure [Right] O2 Sat by Pulse 97 96 96 Oximetry 04/15/22 04/15/22 04/15/22 09:17 09:22 09:27 Temperature Pulse Rate 86 82 83 Respiratory Rate Blood Pressure Blood Pressure [Right] O2 Sat by Pulse 97 96 96 Oximetry 04/15/22 04/15/22 04/15/22 09:32 09:37 09:42 Temperature Pulse Rate 85 77 86 Respiratory Rate Blood Pressure Blood Pressure [Right] O2 Sat by Pulse 97 97 97 Oximetry 04/15/22 04/15/22 04/15/22 09:47 09:52 09:57 Temperature Pulse Rate 90 88 87 Respiratory Rate Blood Pressure Blood Pressure [Right] O2 Sat by Pulse 97 97 97 Oximetry 04/15/22 04/15/22 04/15/22 10:02 10:07 10:12 Temperature Pulse Rate 88 90 90 Respiratory Rate Blood Pressure Blood Pressure [Right] O2 Sat by Pulse 97 97 97 Oximetry 04/15/22 04/15/22 04/15/22 10:17 10:22 10:27 Temperature Pulse Rate 89 93 H 96 H Respiratory Rate Blood Pressure Blood Pressure [Right] O2 Sat by Pulse 96 96 96 Oximetry 04/15/22 04/15/22 04/15/22 10:32 10:37 10:42 Temperature Pulse Rate 101 H 107 H 108 H Respiratory Rate Blood Pressure Blood Pressure [Right] O2 Sat by Pulse 97 97 97 Oximetry 04/15/22 04/15/22 04/15/22 10:47 10:52 10:57 Temperature Pulse Rate 89 108 H 102 H Respiratory Rate Blood Pressure Blood Pressure [Right] O2 Sat by Pulse 96 98 99 Oximetry 04/15/22 04/15/22 04/15/22 11:02 11:07 11:12 Temperature Pulse Rate 104 H 100 H 100 H Respiratory Rate Blood Pressure Blood Pressure [Right] O2 Sat by Pulse 99 100 100 Oximetry 04/15/22 04/15/22 04/15/22 11:17 11:22 11:27 Temperature Pulse Rate 99 H 100 H 94 H Respiratory Rate Blood Pressure Blood Pressure [Right] O2 Sat by Pulse 100 100 100 Oximetry 04/15/22 04/15/22 04/15/22 11:32 11:36 11:37 Temperature 98.4 F Pulse Rate 91 H 97 H 97 H Respiratory 16 Rate Blood Pressure Blood Pressure 100/55 [Right] O2 Sat by Pulse 100 99 Oximetry 04/15/22 04/15/22 04/15/22 11:39 11:42 11:47 Temperature Pulse Rate 96 H 92 H 95 H Respiratory Rate Blood Pressure 100/55 Blood Pressure [Right] O2 Sat by Pulse 99 98 Oximetry 04/15/22 04/15/22 04/15/22 11:52 11:57 12:02 Temperature Pulse Rate 106 H 104 H 101 H Respiratory Rate Blood Pressure Blood Pressure [Right] O2 Sat by Pulse 99 99 99 Oximetry 04/15/22 04/15/22 04/15/22 12:07 12:12 12:17 Temperature Pulse Rate 100 H 95 H 91 H Respiratory Rate Blood Pressure Blood Pressure [Right] O2 Sat by Pulse 99 98 98 Oximetry 04/15/22 04/15/22 04/15/22 12:22 12:27 12:32 Temperature Pulse Rate 90 92 H 92 H Respiratory Rate Blood Pressure Blood Pressure [Right] O2 Sat by Pulse 98 97 98 Oximetry 04/15/22 04/15/22 04/15/22 12:37 12:44 12:45 Temperature Pulse Rate 92 H 101 H 98 H Respiratory Rate Blood Pressure Blood Pressure [Right] O2 Sat by Pulse 98 82 L 95 Oximetry 04/15/22 04/15/22 04/15/22 12:50 12:55 13:00 Temperature Pulse Rate 95 H 97 H 101 H Respiratory Rate Blood Pressure Blood Pressure [Right] O2 Sat by Pulse 100 100 100 Oximetry 04/15/22 04/15/22 04/15/22 13:05 13:10 13:15 Temperature Pulse Rate 98 H 98 H 93 H Respiratory Rate Blood Pressure Blood Pressure [Right] O2 Sat by Pulse 100 100 100 Oximetry 04/15/22 04/15/22 04/15/22 13:20 13:25 13:30 Temperature Pulse Rate 96 H 89 100 H Respiratory Rate Blood Pressure Blood Pressure [Right] O2 Sat by Pulse 100 100 100 Oximetry 04/15/22 04/15/22 04/15/22 13:35 13:40 13:45 Temperature Pulse Rate 90 89 90 Respiratory Rate Blood Pressure Blood Pressure [Right] O2 Sat by Pulse 100 100 100 Oximetry 04/15/22 04/15/22 04/15/22 13:50 13:55 14:00 Temperature Pulse Rate 89 94 H 80 Respiratory Rate Blood Pressure Blood Pressure [Right] O2 Sat by Pulse 99 100 100 Oximetry 04/15/22 04/15/22 04/15/22 14:05 14:10 14:15 Temperature Pulse Rate 85 87 92 H Respiratory Rate Blood Pressure Blood Pressure [Right] O2 Sat by Pulse 100 100 100 Oximetry 04/15/22 04/15/22 04/15/22 14:20 14:25 14:30 Temperature Pulse Rate 88 88 89 Respiratory Rate Blood Pressure Blood Pressure [Right] O2 Sat by Pulse 100 100 99 Oximetry 04/15/22 04/15/22 04/15/22 14:35 14:40 14:45 Temperature Pulse Rate 89 90 91 H Respiratory Rate Blood Pressure Blood Pressure [Right] O2 Sat by Pulse 100 100 100 Oximetry 04/15/22 04/15/22 04/15/22 14:50 14:55 15:00 Temperature Pulse Rate 83 89 84 Respiratory Rate Blood Pressure Blood Pressure [Right] O2 Sat by Pulse 100 99 100 Oximetry 04/15/22 04/15/22 04/15/22 15:05 15:12 15:17 Temperature Pulse Rate 93 H 91 H 86 Respiratory Rate Blood Pressure Blood Pressure [Right] O2 Sat by Pulse 100 93 100 Oximetry 04/15/22 04/15/22 04/15/22 15:22 15:25 15:27 Temperature 98 F Pulse Rate 92 H 89 87 Respiratory 16 Rate Blood Pressure 109/57 Blood Pressure 109/57 [Right] O2 Sat by Pulse 100 99 100 Oximetry 04/15/22 04/15/22 04/15/22 15:29 15:32 15:37 Temperature Pulse Rate 88 90 84 Respiratory Rate Blood Pressure Blood Pressure [Right] O2 Sat by Pulse 91 100 100 Oximetry 04/15/22 04/15/22 04/15/22 15:42 15:47 15:52 Temperature Pulse Rate 86 90 84 Respiratory Rate Blood Pressure Blood Pressure [Right] O2 Sat by Pulse 100 100 100 Oximetry 04/15/22 04/15/22 04/15/22 15:57 16:02 16:05 Temperature Pulse Rate 80 100 H 97 H Respiratory Rate Blood Pressure Blood Pressure [Right] O2 Sat by Pulse 100 99 89 Oximetry 04/15/22 04/15/22 04/15/22 16:07 16:11 16:12 Temperature Pulse Rate 100 H 98 H 99 H Respiratory Rate Blood Pressure Blood Pressure [Right] O2 Sat by Pulse 99 79 L 79 L Oximetry 04/15/22 04/15/22 04/15/22 16:17 16:22 16:27 Temperature Pulse Rate 97 H 98 H 101 H Respiratory Rate Blood Pressure Blood Pressure [Right] O2 Sat by Pulse 97 100 100 Oximetry 04/15/22 04/15/22 04/15/22 16:32 16:37 16:42 Temperature Pulse Rate 95 H 96 H 100 H Respiratory Rate Blood Pressure Blood Pressure [Right] O2 Sat by Pulse 100 100 100 Oximetry 04/15/22 04/15/22 04/15/22 16:47 16:52 16:57 Temperature Pulse Rate 91 H 95 H 96 H Respiratory Rate Blood Pressure Blood Pressure [Right] O2 Sat by Pulse 100 99 99 Oximetry 04/15/22 04/15/22 04/15/22 17:02 17:07 17:12 Temperature Pulse Rate 98 H 105 H 94 H Respiratory Rate Blood Pressure Blood Pressure [Right] O2 Sat by Pulse 100 100 99 Oximetry 04/15/22 04/15/22 04/15/22 17:17 17:22 17:27 Temperature Pulse Rate 100 H 97 H 92 H Respiratory Rate Blood Pressure Blood Pressure [Right] O2 Sat by Pulse 99 100 100 Oximetry 04/15/22 04/15/22 04/15/22 17:32 17:37 17:42 Temperature Pulse Rate 93 H 98 H 90 Respiratory Rate Blood Pressure Blood Pressure [Right] O2 Sat by Pulse 100 100 100 Oximetry 04/15/22 17:50 Temperature Pulse Rate 100 H Respiratory Rate Blood Pressure Blood Pressure [Right] O2 Sat by Pulse 100 Oximetry General appearance: Present: no acute distress - Cardiovascular Rhythm: regular Extremities: No edema - Labs CBC & Chem 7: 04/13/22 06:35 04/15/22 06:29 Labs: Abnormal lab results 04/15/22 04/15/22 Range/Units 06:29 06:29 APTT 23.9 L (24.2-36.6) Sec. Carbon Dioxide 20 L (22-30) mmol/L Creatinine 0.3 L (0.6-1.2) mg/dL Glucose 113 H (65-100) mg/dL Total Protein 6.2 L (6.3-8.2) g/dL Albumin 3.4 L (3.9-5) g/dL Triglycerides 174 H (2-149) mg/dL Cholesterol 216 H (50-199) mg/dL HDL Cholesterol 108 H (40-59) mg/dL Medications & Allergies - Medications Allergies/Adverse Reactions: Allergies amoxicillin Allergy (Verified 04/13/22 09:21) Shortness of Breath ampicillin Allergy (Verified 04/13/22 09:21) Shortness of Breath Active Medications: Generic Name Dose Route Start Last Admin Trade Name Freq PRN Reason Stop Dose Admin Acetaminophen 650 mg 04/13/22 07:00 04/14/22 04:05 Acetaminophen 325 Mg Tab PO 650 mg Q4H PRN Administration Pain, Mild (1-3) Butorphanol Tartrate 1 mg 04/13/22 07:00 Butorphanol 2 Mg/1 Ml Inj IV Q2H PRN Pain, Moderate(4-6) LABOR PAIN Clindamycin HCl 300 mg 04/16/22 07:45 Clindamycin 300 Mg Cap PO 04/21/22 07:44 Q8H PREMA Protocol Lactated Ringer's 1,000 mls @ 125 mls/hr 04/13/22 07:00 04/14/22 09:01 Lactated Ringers IV 100 mls/hr DIRECT PREMA Administration Clindamycin HCl 900 mg in 50 mls @ 100 mls/hr 04/13/22 23:45 04/15/22 11:34 Cleocin 900 Mg/50 Ml IV 04/15/22 23:44 100 mls/hr Q8H PREMA Administration Protocol Gentamicin Sulfate/Sodium Chloride 100 mls @ 200 mls/hr 04/13/22 23:45 04/15/22 11:53 Gentamicin/Ns 80 Mg/100 Ml IV 04/15/22 23:44 200 mls/hr Q8H PREMA Administration Multivitamins/Iron/Calcium 1 each 04/15/22 10:00 04/15/22 11:52 [id number] Fumarate-Folic Acid Vit Tab PO 1 each QDAY PREMA Administration
[2022-04-15] MEDS: LACTATED RINGERS 1,000 ML IV SCH (22:15)
[2022-04-16] MEDS: LACTATED RINGERS 1,000 ML IV SCH ×2 (05:32→14:06)
[2022-04-16] MEDS: CLINDAMYCIN 300 MG CAP PO SCH ×3 (08:43→23:55)
[2022-04-16] MEDS: PRENATAL VIT27-FE FUMARATE-FOLIC ACID VIT TAB PO SCH (10:25)
--- NOTE | 2022-04-16 16:21 | Progress Note ---
Assessment and Plan A IUP @ 30 11/01 weeks PPROM S/p Magnesium Sulfate for neuroprotection S/p Celestone P: Monitor for chorioamnionitis Deliver at 34 weeks or before if indicated Continue hospital bed rest Subjective Date of service: 04/16/22 Principal diagnosis: PPROM @ 30 3/7 Interval history: S: No complaints of leaking fluid, + FM Objective - Constitutional Vitals: Vital Signs - 12hr 04/16/22 04/16/22 04/16/22 13:59 14:01 14:04 Temperature Pulse Rate 81 96 H 96 H Respiratory Rate Blood Pressure 97/57 Blood Pressure [Left] O2 Sat by Pulse 86 98 Oximetry O2 Sat by Pulse Oximetry [ Bilateral] 04/16/22 04/16/22 04/16/22 14:07 14:08 14:09 Temperature 98.7 F Pulse Rate 95 H 90 Respiratory 16 Rate Blood Pressure Blood Pressure 97/57 [Left] O2 Sat by Pulse 98 99 Oximetry O2 Sat by Pulse 99 Oximetry [ Bilateral] 04/16/22 04/16/22 04/16/22 14:14 14:19 14:24 Temperature Pulse Rate 104 H 96 H 93 H Respiratory Rate Blood Pressure Blood Pressure [Left] O2 Sat by Pulse 99 100 100 Oximetry O2 Sat by Pulse Oximetry [ Bilateral] 04/16/22 04/16/22 04/16/22 14:29 14:34 14:39 Temperature Pulse Rate 102 H 99 H 101 H Respiratory Rate Blood Pressure Blood Pressure [Left] O2 Sat by Pulse 99 99 99 Oximetry O2 Sat by Pulse Oximetry [ Bilateral] 04/16/22 04/16/22 04/16/22 14:44 14:49 14:54 Temperature Pulse Rate 95 H 96 H 99 H Respiratory Rate Blood Pressure Blood Pressure [Left] O2 Sat by Pulse 100 99 99 Oximetry O2 Sat by Pulse Oximetry [ Bilateral] 04/16/22 04/16/22 04/16/22 14:59 15:04 15:09 Temperature Pulse Rate 97 H 96 H 91 H Respiratory Rate Blood Pressure Blood Pressure [Left] O2 Sat by Pulse 100 99 99 Oximetry O2 Sat by Pulse Oximetry [ Bilateral] 04/16/22 15:14 Temperature Pulse Rate 92 H Respiratory Rate Blood Pressure Blood Pressure [Left] O2 Sat by Pulse 99 Oximetry O2 Sat by Pulse Oximetry [ Bilateral] General appearance: Present: no acute distress - Genitourinary Female genitourinary: deferred - Labs CBC & Chem 7: 04/13/22 06:35 04/15/22 06:29 Medications & Allergies - Medications Allergies/Adverse Reactions: Allergies amoxicillin Allergy (Verified 04/13/22 09:21) Shortness of Breath ampicillin Allergy (Verified 04/13/22 09:21) Shortness of Breath Active Medications: Generic Name Dose Route Start Last Admin Trade Name Freq PRN Reason Stop Dose Admin Acetaminophen 650 mg 04/13/22 07:00 04/14/22 04:05 Acetaminophen 325 Mg Tab PO 650 mg Q4H PRN Administration Pain, Mild (1-3) Butorphanol Tartrate 1 mg 04/13/22 07:00 Butorphanol 2 Mg/1 Ml Inj IV Q2H PRN Pain, Moderate(4-6) LABOR PAIN Clindamycin HCl 300 mg 04/16/22 07:45 04/16/22 08:43 Clindamycin 300 Mg Cap PO 04/21/22 07:44 300 mg Q8H PREMA Administration Protocol Lactated Ringer's 1,000 mls @ 125 mls/hr 04/13/22 07:00 04/16/22 14:06 Lactated Ringers IV 100 mls/hr DIRECT PREMA Administration Multivitamins/Iron/Calcium 1 each 04/15/22 10:00 04/16/22 10:25 [id number] Fumarate-Folic Acid Vit Tab PO 1 each QDAY PREMA Administration
[2022-04-16] MEDS: LOPERAMIDE 2 MG CAP PO PRN (20:13)
[2022-04-17] MEDS: CLINDAMYCIN 300 MG CAP PO SCH ×2 (09:19→16:42)
[2022-04-17] MEDS: PRENATAL VIT27-FE FUMARATE-FOLIC ACID VIT TAB PO SCH (10:10)
--- NOTE | 2022-04-17 11:18 | Progress Note ---
Assessment and Plan A: IUP @30.4wks PPROM@30wks c/o mild headache, blurred vision,RUQ pain, shortness of breath with cough s/p mag/sulfate and steroids P:Discussed pt with Dr. Carroll labs, urinalysis, abd u/s, echo, cxray eval for chorioamnionitis Delv @34wk NST Subjective - Subjective Date of service: 04/17/22 (1030) Principal diagnosis: PPROM @ 30 11/01 Patient reports: movement normal, other (SHORTNESS OF BREATH, RUQ PAIN, H EADACHE, BLURRED VISION, VISUAL SPOTS) Objective - Vital Signs Vital Signs: Vital Signs - 12hr 04/17/22 04/17/22 04/17/22 03:25 08:03 08:04 Temperature 98.4 F 98.7 F Pulse Rate 90 83 87 Respiratory 18 16 Rate Blood Pressure 130/58 Blood Pressure 91/51 130/58 [Right] O2 Sat by Pulse 96 99 99 Oximetry O2 Sat by Pulse Oximetry [ Bilateral] 04/17/22 04/17/22 04/17/22 08:05 08:08 10:33 Temperature 98.8 F Pulse Rate 79 Respiratory Rate Blood Pressure Blood Pressure [Right] O2 Sat by Pulse 100 Oximetry O2 Sat by Pulse 99 Oximetry [ Bilateral] 04/17/22 04/17/22 04/17/22 10:39 10:40 10:45 Temperature Pulse Rate 148 H Respiratory Rate Blood Pressure Blood Pressure [Right] O2 Sat by Pulse 85 79 L 90 Oximetry O2 Sat by Pulse Oximetry [ Bilateral] 04/17/22 04/17/22 04/17/22 10:46 10:51 10:56 Temperature Pulse Rate 100 H 103 H 104 H Respiratory Rate Blood Pressure Blood Pressure [Right] O2 Sat by Pulse 95 96 96 Oximetry O2 Sat by Pulse Oximetry [ Bilateral] 04/17/22 04/17/22 04/17/22 11:01 11:06 11:09 Temperature Pulse Rate 107 H 94 H 107 H Respiratory Rate Blood Pressure Blood Pressure [Right] O2 Sat by Pulse 97 98 90 Oximetry O2 Sat by Pulse Oximetry [ Bilateral] - Exam Breasts: deferred Cardiovascular: Regular rate Lungs: Clear to auscultation Abdomen: Present: normal appearance, soft FHR: category 1 Uterine Contraction Monitor Mode: External Uterine Contraction Pattern: Absent Extremities: normal Deep Tendon Reflex Grade: Normal +2 - Labs Labs: Abnormal Labs 04/13/22 04/13/22 04/13/22 12:11 12:11 12:11 APTT Sodium 136 L Carbon Dioxide Creatinine 0.3 L Glucose Magnesium 3.20 H 3.10 H Total Protein Albumin Triglycerides Cholesterol HDL Cholesterol Membranes Rupture 04/13/22 04/13/22 04/15/22 19:38 Unknown 06:29 APTT 23.9 L Sodium Carbon Dioxide Creatinine Glucose Magnesium 3.10 H Total Protein Albumin Triglycerides Cholesterol HDL Cholesterol Membranes Rupture Positive A 04/15/22 06:29 APTT Sodium Carbon Dioxide 20 L Creatinine 0.3 L Glucose 113 H Magnesium Total Protein 6.2 L Albumin 3.4 L Triglycerides 174 H Cholesterol 216 H HDL Cholesterol 108 H Membranes Rupture - Results US- obstetric: pending (abd u/s)
[2022-04-17] MEDS: LOPERAMIDE 2 MG CAP PO PRN (12:36)
[2022-04-17 13:24] LABS: Basophils % (Auto) 0.3 % (0.0-1.8); Eosinophils % (Auto) 0.4 % (0.0-4.3); Hematocrit 30.8 % (30.3-42.9); Hemoglobin 10.1 gm/dl (10.1-14.3); Lymphocytes # (Auto) 1.6 K/mm3 (1.2-5.4); Mean Corpuscular HGB Conc 33 % (30-34); Mean Corpuscular Volume 88 fl (79-97); Monocytes # (Auto) 0.6 K/mm3 (0.0-0.8); Monocytes % (Auto) 5.5 % (0.0-7.3); Platelet Count 249 K/mm3 (140-440); Red Cell Distribution Width 15.1 % (13.2-15.2)
[2022-04-17 13:29] LABS: INR 0.91 (0.87-1.13)
[2022-04-17 13:30] LABS: Partial Thromboplastin Time 25.2 Sec. (24.2-36.6)
[2022-04-17 13:35] LABS: Alanine Aminotransferase 14 units/L (7-56); Albumin 3.7 g/dL (3.9-5); Blood Urea Nitrogen 9 mg/dL (7-17); Calcium 9.3 mg/dL (8.4-10.2); Hemolysis Index 7
[2022-04-17 13:39] LABS: BUN/Creatinine Ratio 23; Bilirubin,Direct < 0.2 mg/dL (0-0.2)
--- NOTE | 2022-04-17 14:14 | XRay Report ---
XR chest 1V ap INDICATION / CLINICAL INFORMATION: cough. COMPARISON: 04/13/2022 FINDINGS: SUPPORT DEVICES: None. HEART /PULMONARY VASCULATURE: No significant abnormality. LUNGS / PLEURA: No significant pulmonary or pleural abnormality. No pneumothorax. ADDITIONAL FINDINGS: No significant additional findings. IMPRESSION: 1. No acute findings. Signer Name: Nolan Morales MD Signed: 04/17/2022 2:09 PM Workstation Name: [id number]
[2022-04-17 15:56] LABS: Bacteria,Urine 2+ /HPF (Negative); Mucus,Urine FEW /HPF
[2022-04-17 16:01] LABS: Creatinine,Urine 27.2 mg/dL (0.1-20.0)
--- NOTE | 2022-04-17 19:03 | Event Note ---
Date: 04/17/22 (152) Re-evaluated patient and reviewed all available labs and report with Dr. Carroll. Abd u/s pending, echocadiogram result pending. Pt still with mild blurred vision, mild headache with occ spots. pos movement.
[2022-04-18] MEDS: CLINDAMYCIN 300 MG CAP PO SCH ×3 (05:06→15:45)
[2022-04-18] MEDS: PRENATAL VIT27-FE FUMARATE-FOLIC ACID VIT TAB PO SCH (10:50)
--- NOTE | 2022-04-18 13:11 | Progress Note ---
Assessment and Plan at 30.5wks with hepatic steatosis, awaiting RUQ ultrasound, normal LFTs and hepatitis panel. 1. Await [facility] seeing pt 2. Consult to Dr.Min MARIANA per [facility] recommendation 3. Will continue current mgt All questions encouraged and answered Subjective Date of service: 04/18/22 Principal diagnosis: PPROM @ 30 5/7 with hepatic steatosis Interval history: pt to have RUQ ultrasound this afternoon after she already ate breakfast this am. pt admits to movement, no LOF, vag bleed or headache or feeling ctx. Objective - Constitutional Vitals: Vital Signs - 12hr 04/18/22 04/18/22 04/18/22 05:05 05:07 08:45 Temperature 98.0 F Pulse Rate 82 90 Respiratory 18 Rate Blood Pressure 104/59 107/65 Blood Pressure 107/65 [Right] O2 Sat by Pulse 99 Oximetry O2 Sat by Pulse 99 Oximetry [ Bilateral] 04/18/22 04/18/22 04/18/22 10:51 10:56 11:01 Temperature Pulse Rate 155 H 93 H 95 H Respiratory Rate Blood Pressure Blood Pressure [Right] O2 Sat by Pulse 78 L 94 95 Oximetry O2 Sat by Pulse Oximetry [ Bilateral] 04/18/22 04/18/22 04/18/22 11:06 11:09 11:11 Temperature Pulse Rate 96 H 98 H 87 Respiratory Rate Blood Pressure Blood Pressure [Right] O2 Sat by Pulse 95 94 96 Oximetry O2 Sat by Pulse Oximetry [ Bilateral] 04/18/22 04/18/22 04/18/22 11:16 11:21 11:26 Temperature Pulse Rate 94 H 101 H 97 H Respiratory Rate Blood Pressure Blood Pressure [Right] O2 Sat by Pulse 95 95 96 Oximetry O2 Sat by Pulse Oximetry [ Bilateral] 04/18/22 04/18/22 04/18/22 11:31 11:32 11:36 Temperature Pulse Rate 92 H 96 H 90 Respiratory Rate Blood Pressure Blood Pressure [Right] O2 Sat by Pulse 96 94 95 Oximetry O2 Sat by Pulse Oximetry [ Bilateral] 04/18/22 04/18/22 04/18/22 11:38 11:41 11:46 Temperature Pulse Rate 88 85 87 Respiratory Rate Blood Pressure Blood Pressure [Right] O2 Sat by Pulse 94 95 95 Oximetry O2 Sat by Pulse Oximetry [ Bilateral] 04/18/22 04/18/2204/18/22 11:51 11:56 11:57 Temperature Pulse Rate 90 88 87 Respiratory Rate Blood Pressure Blood Pressure [Right] O2 Sat by Pulse 95 95 94 Oximetry O2 Sat by Pulse Oximetry [ Bilateral] 04/18/22 04/18/22 12:01 12:03 Temperature Pulse Rate 87 88 Respiratory Rate Blood Pressure Blood Pressure [Right] O2 Sat by Pulse 95 94 Oximetry O2 Sat by Pulse Oximetry [ Bilateral] General appearance: Present: no acute distress - Neck Neck: normal ROM - Respiratory Respiratory effort: normal - Breasts Breasts: deferred - Cardiovascular Rhythm: regular Extremities: No edema - Gastrointestinal General gastrointestinal: Present: soft, non-tender - Genitourinary Female genitourinary: deferred - Integumentary Integumentary: warm, dry - Neurologic Neurologic: moves all extremities - Psychiatric Psychiatric: cooperative - Labs CBC & Chem 7: 04/17/22 12:44 04/17/22 12:44 Labs: Abnormal lab results 04/17/22 04/17/22 04/17/22 Range/Units 12:44 12:44 15:35 RBC 3.50 L (3.65-5.03) M/mm3 Seg Neutrophils % 78.8 H (40.0-70.0) % Seg Neutrophils # 8.4 H (1.8-7.7) K/mm3 Creatinine 0.4 L (0.6-1.2) mg/dL Total Protein 5.9 L (6.3-8.2) g/dL Albumin 3.7 L (3.9-5) g/dL Urine Creatinine 27.2 H (0.1-20.0) mg/dL Medications & Allergies - Medications Allergies/Adverse Reactions: Allergies amoxicillin Allergy (Verified 04/13/22 09:21) Shortness of Breath ampicillin Allergy (Verified 04/13/22 09:21) Shortness of Breath Active Medications: Generic Name Dose Route Start Last Admin Trade Name Freq PRN Reason Stop Dose Admin Acetaminophen 650 mg 04/13/22 07:00 04/14/22 04:05 Acetaminophen 325 Mg Tab PO 650 mg Q4H PRN Administration Pain, Mild (1-3) Butorphanol Tartrate 1 mg 04/13/22 07:00 Butorphanol 2 Mg/1 Ml Inj IV Q2H PRN Pain, Moderate(4-6) LABOR PAIN Clindamycin HCl 300 mg 04/16/22 07:45 04/18/22 08:42 Clindamycin 300 Mg Cap PO 04/21/22 07:44 300 mg Q8H PREMA Administration Protocol Lactated Ringer's 1,000 mls @ 125 mls/hr 04/13/22 07:00 04/16/22 14:06 Lactated Ringers IV 100 mls/hr DIRECT PREMA Administration Loperamide HCl 2 mg 04/16/22 19:44 04/17/22 12:36 Loperamide 2 Mg Cap PO 2 mg Q2H PRN Administration Diarrhea Multivitamins/Iron/Calcium 1 each 04/15/22 10:00 04/18/22 10:50 [id number] Fumarate-Folic Acid Vit Tab PO 1 each QDAY PREMA Administration
--- NOTE | 2022-04-18 17:20 | Event Note ---
Date: 04/18/22 nurse notified me that pt has been on clindamycin every 8hrs and has loose stool since one day ago. Nurse told to hold this med and stool sent for C.diff, PCR.
--- NOTE | 2022-04-18 17:48 | Ultrasound Report ---
ULTRASOUND ABDOMEN, LIMITED INDICATION / CLINICAL INFORMATION: Right upper quadrant pain. COMPARISON: Abdominal ultrasound 04/14/2022. FINDINGS: PANCREAS: Visualized portion shows no significant abnormality. AORTA: Distal aorta is obscured by overlying bowel gas. The remainder of the aorta demonstrates no si gnificant abnormality. IVC: No significant abnormality. LIVER: The liver is enlarged measuring 18.2 cm with diffusely echogenic appearance. Normal hepatopeda l blood flow within the main portal vein. GALLBLADDER: No significant abnormality. BILE DUCTS: No significant abnormality. Common bile duct measures 2 mm. RIGHT KIDNEY: The right kidney measures 12.7 cm. No significant abnormality. FREE FLUID: None. ADDITIONAL FINDINGS: None. IMPRESSION: 1. No significant change from previous exam. 2. Hepatomegaly with hepatic steatosis. Scribed by: Leonor Solorzano RDMS, RVT, VANE Scribed: 04/18/2022 3:54 PM I have reviewed the images, agree with this report, and edited this report as needed. Signer Name: Rafiq Pedraza MD Signed: 04/18/2022 5:44 PM Workstation Name: [id number]
--- NOTE | 2022-04-18 19:33 | Ultrasound Report ---
ULTRASOUND OBSTETRIC LIMITED ULTRASOUND BIOPHYSICAL PROFILE INDICATION / CLINICAL INFORMATION: FWB. COMPARISON: None available. FINDINGS: BREATHING MOVEMENT = 2 GROSS BODY MOVEMENT = 2 TONE = 2 QUALITATIVE AMNIOTIC FLUID VOLUME = 2 TOTAL BIOPHYSICAL SCORE = 8/8 AMNIOTIC FLUID INDEX (cm) = 8.1 PRESENTATION: Cephalic. HEART RATE (beats per minute): 149 ADDITIONAL FINDINGS: None. IMPRESSION: 1. Biophysical Score = 8/8 Signer Name: Yousuf Tracy MD Signed: 04/18/2022 7:28 PM Workstation Name: [id number]
--- NOTE | 2022-04-18 20:04 | Gastroenterology Consultation ---
History of Present Illness - Reason for Consult Consult date: 04/18/22 RUQ pain Requesting physician: MARY KAY TURNER - History of Present Illness This is a 36-year-old female who is 30 weeks admitted on April 13 for membrane rupture. Patient complained of right upper quadrant pain since admission. GI consulted for evaluation. Patient is a Latvian-speaking and history obtained via speech/language therapist on the phone. Patient reports no prior history of abdominal pain or nausea vomiting prior to her . Since admission patient has had intermittent mild right upper quadrant and epigastric discomfort rated 4 out of 10. There is no particular trigger with the episodes. She had mild nausea today after eating some soup. Patient also reports having new onset diarrhea since admission. Reports 4 episodes of watery loose stool. Patient has been on antibiotics due to membrane rupture. Work-up so far with LFTs normal right upper quadrant ultrasound which showed hepatic steatosis but otherwise normal gallbladder and pancreas examined. Medication list reviewed. Past History Social history: no significant social history Medications and Allergies Allergies Allergy/AdvReac Type Severity Reaction Status Date / Time amoxicillin Allergy Shortness Verified 04/13/22 09:21 of Breath ampicillin Allergy Shortness Verified 04/13/22 09:21 of Breath Active Meds: Active Medications Acetaminophen (Acetaminophen 325 Mg Tab) 650 mg PO Q4H PRN PRN Reason: Pain, Mild (1-3) Last Admin: 04/14/22 04:05 Dose: 650 mg Butorphanol Tartrate (Butorphanol 2 Mg/1 Ml Inj) 1 mg IV Q2H PRN PRN Reason: Pain, Moderate(4-6) LABOR PAIN Lactated Ringer's (Lactated Ringers) 1,000 mls @ 125 mls/hr IV DIRECT PREMA Last Admin: 04/16/22 14:06 Dose: 100 mls/hr Loperamide HCl (Loperamide 2 Mg Cap) 2 mg PO Q2H PRN PRN Reason: Diarrhea Last Admin: 04/17/22 12:36 Dose: 2 mg Multivitamins/Iron/Calcium ( Cxx40-Eh Fumarate-Folic Acid Vit Tab) 1 each PO QDAY PREMA Last Admin: 04/18/22 10:50 Dose: 1 each Review of Systems - Review of Systems All systems: negative Eyes: no change in vision Cardiovascular: no chest pain Gastrointestinal: abdominal pain, nausea, vomiting, diarrhea, no melena, no hematochezia, no loss of appetite Rectal: no pain Musculoskeletal: no gait dysfunction Neurological: no weakness Psychiatric: no anxiety Hematologic/Lymphatic: no easy bruising Allergic/Immunologic: no wheezing Exam - Constitutional Vital Signs: Temp Pulse Resp BP Pulse Ox 98.0 F 97 H 18 107/65 96 04/18/22 05:07 04/18/22 18:05 04/18/22 08:45 04/18/22 08:45 04/18/22 18:05 General appearance: no acute distress - EENT Eyes: EOM intact ENT: hearing intact - Neck Neck: supple - Respiratory Respiratory effort: normal - Cardiovascular Rhythm: regular Heart Sounds: Present: S1 & S2 - Gastrointestinal General gastrointestinal: Present: soft, tender, other (gravid abdomen) - Integumentary Integumentary: Present: clear, warm - Neurologic Neurological: alert and oriented x3 - Psychiatric Psychiatric: appropriate mood/affect - Labs CBC & Chem 7: 04/17/22 12:44 04/17/22 12:44 Lab Results: Laboratory Results - last 24 hr 04/15/22 06:29 Total Bile Acids 13 Assessment and Plan # RUQ pain - new onset pain since admission. - work up so far with RUQ US showing hepatic steatosis and normal gallbladder. - LFTs normal. - will check lipase and amylase but less likely pancreatitis - recommend famotidine. # Hepatic steatosis - likely 2/2 fatty liver. elevated lipids with triglyceride and LDL - unlikely to cause pain and likely chronic. - would need follow up in outpatient GI clinic - Patient Problems (1) RUQ pain Current Visit: Yes Status: Acute
[2022-04-19] MEDS: LOPERAMIDE 2 MG CAP PO PRN ×2 (01:06→22:03)
[2022-04-19] MEDS: CLINDAMYCIN 300 MG CAP PO SCH ×4 (01:06→23:56)
[2022-04-19] MEDS ORDERED: PHENAZOPYRIDINE 100 MG TAB PO SCH (02:00)
[2022-04-19] MEDS ORDERED: PHENAZOPYRIDINE 100 MG TAB PO PRN (05:23)
[2022-04-19] MEDS: PRENATAL VIT27-FE FUMARATE-FOLIC ACID VIT TAB PO SCH (11:05)
[2022-04-19] MEDS: FAMOTIDINE 20 MG TAB PO SCH (11:05)
--- NOTE | 2022-04-19 18:16 | Progress Note ---
Assessment and Plan at 30.6 wks with hepatic steatosis, normal LFTs and hepatitis panel. 1. Await [facility] seeing pt 2. Consult to GI appreciated -Added famotidine 3. Will continue current mgt Subjective Date of service: 04/19/22 Principal diagnosis: PPROM @ 30 6/7 with hepatic steatosis Interval history: No complaints of leaking water, having some bleeding when she wipes Objective - Constitutional Vitals: Vital Signs - 12hr 04/19/22 04/19/22 04/19/22 06:14 06:15 07:48 Temperature 97.8 F Pulse Rate 88 82 Respiratory 14 Rate Blood Pressure 95/56 Blood Pressure [Left] Blood Pressure 95/56 [Right] O2 Sat by Pulse 96 100 Oximetry 04/19/22 04/19/22 04/19/22 07:49 07:51 07:53 Temperature 98.4 F Pulse Rate 90 81 86 Respiratory 20 Rate Blood Pressure 97/62 Blood Pressure 97/62 [Left] Blood Pressure [Right] O2 Sat by Pulse 97 98 Oximetry 04/19/22 04/19/22 04/19/22 07:58 08:03 08:08 Temperature Pulse Rate 91 H 98 H 105 H Respiratory Rate Blood Pressure Blood Pressure [Left] Blood Pressure [Right] O2 Sat by Pulse 98 97 97 Oximetry 04/19/22 04/19/22 04/19/22 08:13 08:18 08:23 Temperature Pulse Rate 99 H 100 H 94 H Respiratory Rate Blood Pressure Blood Pressure [Left] Blood Pressure [Right] O2 Sat by Pulse 98 99 100 Oximetry 04/19/22 04/19/22 04/19/22 16:05 16:06 16:07 Temperature Pulse Rate 80 80 89 Respiratory 20 Rate Blood Pressure Blood Pressure 110/64 [Left] Blood Pressure [Right] O2 Sat by Pulse 83 L 91 96 Oximetry 04/19/22 04/19/22 04/19/22 16:08 16:10 16:15 Temperature 98.6 F Pulse Rate 87 93 H 89 Respiratory Rate Blood Pressure 110/64 Blood Pressure [Left] Blood Pressure [Right] O2 Sat by Pulse 96 99 Oximetry 04/19/22 04/19/22 04/19/22 16:20 16:25 16:30 Temperature Pulse Rate 94 H 93 H 95 H Respiratory Rate Blood Pressure Blood Pressure [Left] Blood Pressure [Right] O2 Sat by Pulse 99 99 100 Oximetry 04/19/22 04/19/22 16:35 16:40 Temperature Pulse Rate 99 H 97 H Respiratory Rate Blood Pressure Blood Pressure [Left] Blood Pressure [Right] O2 Sat by Pulse 99 99 Oximetry General appearance: Present: no acute distress - Breasts Breasts: deferred - Cardiovascular Rhythm: regular - Labs CBC & Chem 7: 04/17/22 12:44 04/17/22 12:44 Medications & Allergies - Medications Allergies/Adverse Reactions: Allergies amoxicillin Allergy (Verified 04/13/22 09:21) Shortness of Breath ampicillin Allergy (Verified 04/13/22 09:21) Shortness of Breath Active Medications: Generic Name Dose Route Start Last Admin Trade Name Freq PRN Reason Stop Dose Admin Acetaminophen 650 mg 04/13/22 07:00 04/14/22 04:05 Acetaminophen 325 Mg Tab PO 650 mg Q4H PRN Administration Pain, Mild (1-3) Clindamycin HCl 300 mg 04/19/22 00:00 04/19/22 16:04 Clindamycin 300 Mg Cap PO 04/21/22 15:59 300 mg Q8H PREMA Administration Famotidine 20 mg 04/19/22 10:00 04/19/22 11:05 Famotidine 20 Mg Tab PO 20 mg QDAY PREMA Administration Loperamide HCl 2 mg 04/16/22 19:44 04/19/22 01:06 Loperamide 2 Mg Cap PO 2 mg Q2H PRN Administration Diarrhea Multivitamins/Iron/Calcium 1 each 04/15/22 10:00 04/19/22 11:05 [id number] Fumarate-Folic Acid Vit Tab PO 1 each QDAY PREMA Administration Phenazopyridine HCl 100 mg 04/19/22 05:23 Phenazopyridine 100 Mg Tab PO Q8H PRN Pain, Mild (1-3)
--- NOTE | 2022-04-19 18:21 | Gastroenterology Progress Note ---
Assessment and Plan # RUQ pain - new onset pain since admission. - work up so far with RUQ US showing hepatic steatosis and normal gallbladder. - LFTs normal. - clinically improving. - will check lipase and amylase but less likely pancreatitis. pending lipase lab. - recommend famotidine. # Hepatic steatosis - likely 2/2 fatty liver. elevated lipids with triglyceride and LDL - unlikely to cause pain and likely chronic. - would need follow up in outpatient GI clinic # Diarrhea - since admission. - C diff study pending. - if positive, recommend PO vancomycin if ok with OB. - Patient Problems (1) RUQ pain Current Visit: Yes Status: Acute Subjective Date of service: 04/19/22 Principal diagnosis: PPROM @ 30 02/01 with hepatic steatosis Interval history: Patient reports right upper quadrant pain improving today. Had some nausea this morning but no vomiting. Continues to have diarrhea. Objective - Constitutional Vitals: Temp Pulse Resp BP Pulse Ox 98.6 F 97 H 20 110/64 99 04/19/22 16:10 04/19/22 16:40 04/19/22 16:07 04/19/22 16:08 04/19/22 16:40 General appearance: no acute distress - EENT ENT: hearing intact - Neck Neck: supple - Respiratory Respiratory effort: normal - Cardiovascular Rhythm: regular Heart Sounds: Present: S1 & S2 - Gastrointestinal General gastrointestinal: Present: soft, tender, other (gravid abdomen) - Integumentary Integumentary: Present: clear, warm - Neurologic Neurological: alert and oriented x3 - Labs CBC & Chem 7: 04/17/22 12:44 04/17/22 12:44
--- NOTE | 2022-04-20 09:54 | Gastroenterology Progress Note ---
Assessment and Plan # RUQ pain - new onset pain since admission. - work up so far with RUQ US showing hepatic steatosis and normal gallbladder. - LFTs normal. - clinically improving. - lipase at 60s. - recommend famotidine. # Hepatic steatosis - likely 2/2 fatty liver. elevated lipids with triglyceride and LDL - unlikely to cause pain and likely chronic. - would need follow up in outpatient GI clinic # Diarrhea - since admission. - C diff study pending. received but no results. - symptoms improving. - if positive, recommend PO vancomycin if ok with OB. - will sign off. please call as needed. - Patient Problems (1) RUQ pain Current Visit: Yes Status: Acute Subjective Date of service: 04/20/22 Principal diagnosis: PPROM @ 30 02/01 with hepatic steatosis Interval history: Patient reports abdominal pain improving. No nausea or vomiting. Had 1 episode of diarrhea but no bowel movement this morning. Objective - Constitutional Vitals: Temp Pulse Resp BP Pulse Ox 98.6 F 92 H 18 102/56 97 04/19/22 22:11 04/19/22 23:05 04/19/22 22:11 04/19/22 22:12 04/19/22 23:05 General appearance: no acute distress - EENT Eyes: EOM intact ENT: hearing intact - Respiratory Respiratory effort: normal - Cardiovascular Rhythm: regular Heart Sounds: Present: S1 & S2 - Gastrointestinal General gastrointestinal: Present: soft, non-tender, other (gravid abdomen) - Integumentary Integumentary: Present: clear, warm - Neurologic Neurological: alert and oriented x3 - Psychiatric Psychiatric: appropriate mood/affect - Labs CBC & Chem 7: 04/17/22 12:44 04/17/22 12:44 Labs: Laboratory Results - last 24 hr 04/19/22 04/20/22 18:40 Unknown Lipase 65 H Membranes Rupture Positive A
[2022-04-20] MEDS: PRENATAL VIT27-FE FUMARATE-FOLIC ACID VIT TAB PO SCH (10:34)
[2022-04-20] MEDS: CLINDAMYCIN 300 MG CAP PO SCH ×3 (10:34→23:53)
[2022-04-20] MEDS: FAMOTIDINE 20 MG TAB PO SCH (10:34)
--- NOTE | 2022-04-20 13:30 | Consultation ---
History of Present Illness Consult date: 04/20/22 Requesting physician: MARY KAY TURNER History of present illness: [employer] Utilized ID [id number] - [place] - 04/20/22 36 YO EGA 31 0/7 wks admitted following SROM. She had a gush o fluid and has had a + ROM screen this on admission. S/P MgSO4, BMZ and IV antibiotics. Doing well Reports small amount of leakage Denies Fever, pain ctx Abd gravid NT US [facility] 04/18/22 BPP 04/04 ZAY at 8.1 cm US [facility] 04/13/22 ZAY at 12.6 cm 04/13/22 [facility] at 1512 g at 41% GI CONSULT DONE # RUQ pain - new onset pain since admission. - work up so far with RUQ US showing hepatic steatosis and normal gallbladder. - LFTs normal. - clinically improving. - lipase at 60s. - recommend famotidine. # Hepatic steatosis - likely 2/2 fatty liver. elevated lipids with triglyceride and LDL - unlikely to cause pain and likely chronic. - would need follow up in outpatient GI clinic # Diarrhea - since admission. - C diff study pending. received but no results. - symptoms improving. - if positive, recommend PO vancomycin if ok with OB . 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 PAP smear Family/Genetic History: none - Obstetrical History : 2 Medications and Allergies Allergies Allergy/AdvReac Type Severity Reaction Status Date / Time amoxicillin Allergy Shortness Verified 04/13/22 09:21 of Breath ampicillin Allergy Shortness Verified 04/13/22 09:21 of Breath Active Meds: Active Medications Acetaminophen (Acetaminophen 325 Mg Tab) 650 mg PO Q4H PRN PRN Reason: Pain, Mild (1-3) Last Admin: 04/14/22 04:05 Dose: 650 mg Clindamycin HCl (Clindamycin 300 Mg Cap) 300 mg PO Q8H PREMA Stop: 04/21/22 15:59 Last Admin: 04/20/22 10:34 Dose: 300 mg Famotidine (Famotidine 20 Mg Tab) 20 mg PO QDAY PREMA Last Admin: 04/20/22 10:34 Dose: 20 mg Loperamide HCl (Loperamide 2 Mg Cap) 2 mg PO Q2H PRN PRN Reason: Diarrhea Last Admin: 04/19/22 22:03 Dose: 2 mg Multivitamins/Iron/Calcium ( [id number] Fumarate-Folic Acid Vit Tab) 1 each PO QDAY PREMA Last Admin: 04/20/22 10:34 Dose: 1 each Phenazopyridine HCl (Phenazopyridine 100 Mg Tab) 100 mg PO Q8H PRN PRN Reason: Pain, Mild (1-3) - Vital Signs Vital signs: Vital Signs Temp Resp Pulse Ox 98.2 F 14 100 04/13/22 05:23 04/13/22 05:23 04/13/22 05:23 Temp Pulse Resp BP Pulse Ox 98.6 F 98 H 18 97/57 97 04/19/22 22:11 04/20/22 13:26 04/19/22 22:11 04/20/22 12:49 04/20/22 13:26 Results Result Diagrams: 04/17/22 12:44 04/17/22 12:44 Abnormal lab results 04/19/22 04/20/22 Range/Units 18:40 Unknown Lipase 65 H (13-60) units/L Membranes Rupture Positive A (Negative) All other labs normal. Assessment and Plan IMPRESSIONS: 1. IUP 31 0/7 weeks, with normal growth 2. PPROM 3. Reassuring tracing 4. S/P Mg and Steroids 5. PCN allergy 6. Benign course prior to SROM 7. Low risk on NIPT, ONTD, GTT screening 8. Cat 1 tracing - BPP 8/8 on 04/18/22 9. No Evidence of Chorio 10. Hepatic steatosis - likely 2/2 fatty liver. elevated lipids with triglyceride and LD RECOMMENDATIONS: 1. Please see GI Consult 2. Twice weekly BPP 3. Deliver for ususal OB indications, or at 34 weeks 4. [facility] will follow-up as requested 5. Recommend FU with GI after delivery for fatty liver 6. EFW q 3 weeks
--- NOTE | 2022-04-20 13:41 | Progress Note ---
Assessment and Plan PPROM with hepatic steatosis; verbal report by nurse that C.Diff negative 1. appreciate APA 2. appreciate GI 3. Will continue routine care, BPP/ZAY biweekly and EFW every 3wks and deliver at 34.0wks All questions encouraged and answered Subjective Date of service: 04/20/22 Principal diagnosis: PPROM @ 31.0 with hepatic steatosis Interval history: pt has no complaints except LOF. pt admits to movement and denies vag bleed Objective - Constitutional Vitals: Vital Signs - 12hr 04/20/22 04/20/22 04/20/22 12:46 12:49 12:51 Pulse Rate 97 H 100 H 106 H Blood Pressure 97/57 O2 Sat by Pulse 97 97 Oximetry 04/20/22 04/20/22 04/20/22 12:56 13:01 13:06 Pulse Rate 104 H 104 H 110 H Blood Pressure O2 Sat by Pulse 97 97 98 Oximetry 04/20/22 04/20/22 04/20/22 13:11 13:16 13:21 Pulse Rate 103 H 104 H 106 H Blood Pressure O2 Sat by Pulse 98 98 98 Oximetry 04/20/22 04/20/22 04/20/22 13:26 13:31 13:36 Pulse Rate 98 H 106 H 101 H Blood Pressure O2 Sat by Pulse 97 97 98 Oximetry General appearance: Present: no acute distress - Neck Neck: normal ROM - Respiratory Respiratory effort: normal - Breasts Breasts: deferred - Cardiovascular Rhythm: regular Extremities: No edema - Genitourinary Female genitourinary: other (non-tender, gravid) - Integumentary Integumentary: warm, dry - Neurologic Neurologic: moves all extremities - Psychiatric Psychiatric: cooperative - Labs CBC & Chem 7: 04/17/22 12:44 04/17/22 12:44 Labs: Abnormal lab results 04/19/22 04/20/22 Range/Units 18:40 Unknown Lipase 65 H (13-60) units/L Membranes Rupture Positive A (Negative) Medications & Allergies - Medications Allergies/Adverse Reactions: Allergies amoxicillin Allergy (Verified 04/13/22 09:21) Shortness of Breath ampicillin Allergy (Verified 04/13/22 09:21) Shortness of Breath Active Medications: Generic Name Dose Route Start Last Admin Trade Name Freq PRN Reason Stop Dose Admin Acetaminophen 650 mg 04/13/22 07:00 04/14/22 04:05 Acetaminophen 325 Mg Tab PO 650 mg Q4H PRN Administration Pain, Mild (1-3) Clindamycin HCl 300 mg 04/19/22 00:00 04/20/22 10:34 Clindamycin 300 Mg Cap PO 04/21/22 15:59 300 mg Q8H PREMA Administration Famotidine 20 mg 04/19/22 10:00 04/20/22 10:34 Famotidine 20 Mg Tab PO 20 mg QDAY PREMA Administration Loperamide HCl 2 mg 04/16/22 19:44 04/19/22 22:03 Loperamide 2 Mg Cap PO 2 mg Q2H PRN Administration Diarrhea Multivitamins/Iron/Calcium 1 each 04/15/22 10:00 04/20/22 10:34 [id number] Fumarate-Folic Acid Vit Tab PO 1 each QDAY PREMA Administration Phenazopyridine HCl 100 mg 04/19/22 05:23 Phenazopyridine 100 Mg Tab PO Q8H PRN Pain, Mild (1-3)
[2022-04-21] MEDS: CLINDAMYCIN 300 MG CAP PO SCH ×2 (08:18→19:09)
[2022-04-21] MEDS: PRENATAL VIT27-FE FUMARATE-FOLIC ACID VIT TAB PO SCH (10:43)
[2022-04-21] MEDS: FAMOTIDINE 20 MG TAB PO SCH (10:43)
--- NOTE | 2022-04-21 12:24 | Progress Note ---
Assessment and Plan A: IUP @ 31 /7 Weeks PPROM AMA Hepatic Steatosis P: Continue Expectant Management Subjective - Subjective Date of service: 04/21/22 Principal diagnosis: PPROM @ 31.0 with hepatic steatosis Patient reports: loss of fluid, movement normal, contractions (mild) Objective - Vital Signs Vital Signs: Vital Signs - 12hr 04/21/22 04/21/22 04/21/22 01:09 01:14 01:19 Temperature Pulse Rate 95 H 31 L Respiratory Rate Blood Pressure O2 Sat by Pulse 87 73 L 75 L Oximetry 04/21/22 04/21/22 04/21/22 01:21 01:25 01:30 Temperature Pulse Rate 130 H 53 L 181 H Respiratory Rate Blood Pressure O2 Sat by Pulse 77 L 80 L 61 L Oximetry 04/21/22 04/21/22 04/21/22 01:33 01:35 01:38 Temperature Pulse Rate 60 69 Respiratory Rate Blood Pressure O2 Sat by Pulse 79 L 81 L 92 Oximetry 04/21/22 04/21/22 04/21/22 01:40 01:45 01:50 Temperature Pulse Rate 57 L 66 Respiratory Rate Blood Pressure O2 Sat by Pulse 87 91 99 Oximetry 04/21/22 04/21/22 04/21/22 01:51 01:55 01:56 Temperature Pulse Rate 159 H 70 Respiratory Rate Blood Pressure O2 Sat by Pulse 73 L 75 L 76 L Oximetry 04/21/22 04/21/22 04/21/22 05:26 05:27 10:45 Temperature 98.6 F Pulse Rate 95 H 94 H 77 Respiratory 18 Rate Blood Pressure 98/58 O2 Sat by Pulse 97 81 L Oximetry 04/21/22 04/21/22 04/21/22 10:47 10:50 10:55 Temperature Pulse Rate 104 H 102 H 111 H Respiratory Rate Blood Pressure 105/61 O2 Sat by Pulse 98 98 Oximetry 04/21/22 04/21/22 04/21/22 11:00 11:05 11:10 Temperature Pulse Rate 109 H 102 H 106 H Respiratory Rate Blood Pressure O2 Sat by Pulse 98 98 98 Oximetry 04/21/22 04/21/22 04/21/22 11:15 11:20 11:25 Temperature Pulse Rate 105 H 104 H 109 H Respiratory Rate Blood Pressure O2 Sat by Pulse 97 97 98 Oximetry - Exam Cardiovascular: Regular rate Lungs: Normal air movement Abdomen: Present: normal appearance, soft Uterus: Present: normal, firm, fundal height above umbilicus FHR: auscultation normal Uterine Contraction Monitor Mode: External Uterine Tone Measurement Phase: Resting - Labs Labs: Abnormal Labs 04/13/22 04/13/22 04/13/22 12:11 12:11 12:11 RBC Seg Neutrophils % Seg Neutrophils # APTT Sodium 136 L Carbon Dioxide Creatinine 0.3 L Glucose Magnesium 3.20 H 3.10 H Total Protein Albumin Triglycerides Cholesterol HDL Cholesterol Lipase Urine Creatinine Membranes Rupture 04/13/22 04/13/22 04/15/22 19:38 Unknown 06:29 RBC Seg Neutrophils % Seg Neutrophils # APTT 23.9 L Sodium Carbon Dioxide Creatinine Glucose Magnesium 3.10 H Total Protein Albumin Triglycerides Cholesterol HDL Cholesterol Lipase Urine Creatinine Membranes Rupture Positive A 04/15/22 04/17/22 04/17/22 06:29 12:44 12:44 RBC 3.50 L Seg Neutrophils % 78.8 H Seg Neutrophils # 8.4 H APTT Sodium Carbon Dioxide 20 L Creatinine 0.3 L 0.4 L Glucose 113 H Magnesium Total Protein 6.2 L 5.9 L Albumin 3.4 L 3.7 L Triglycerides 174 H Cholesterol 216 H HDL Cholesterol 108 H Lipase Urine Creatinine Membranes Rupture 04/17/22 04/19/22 04/20/22 15:35 18:40 Unknown RBC Seg Neutrophils % Seg Neutrophils # APTT Sodium Carbon Dioxide Creatinine Glucose Magnesium Total Protein Albumin Triglycerides Cholesterol HDL Cholesterol Lipase 65 H Urine Creatinine 27.2 H Membranes Rupture Positive A Laboratory Results - last 24 hr 04/17/22 04/18/22 12:44 17:15 Total Bile Acids 13 C. difficile Tox (PCR) Negative
--- NOTE | 2022-04-22 10:12 | Ultrasound Report ---
Limited OB Ultrasound Biophysical profile HISTORY: zay and bpp. TECHNIQUE: Grayscale and color imaging performed. COMPARISON: 4 days prior FINDINGS: There is a single viable intrauterine gestation with cephalic presentation. Heart rate is 149 bpm. Th e ZAY is 6.7 cm which is slightly low. Placenta is along the right lateral wall. On biophysical profile, the fetus received a score of 2 out of 2 for breathing, movement, posture/ton e, and ZAY. Total score was 8 out of 8. Incidental note made of some prominent vessel at the interfac e of the placenta and endometrial wall. IMPRESSION: 1. Single viable intrauterine gestation as above with slightly low ZAY. 2. Normal biophysical profile. Signer Name: Julio Pro MD Signed: 04/22/2022 10:08 AM Workstation Name: [email or web address]
[2022-04-22 10:37] LABS: Basophils # (Auto) 0.1 K/mm3 (0.0-0.1); Basophils % (Auto) 0.4 % (0.0-1.8); Eosinophils % (Auto) 0.3 % (0.0-4.3); Hematocrit 34.8 % (30.3-42.9); Hemoglobin 11.6 gm/dl (10.1-14.3); Lymphocytes # (Auto) 1.8 K/mm3 (1.2-5.4); Lymphocytes % (Auto) 15.4 % (13.4-35.0); Mean Corpuscular HGB Conc 33 % (30-34); Mean Corpuscular Volume 88 fl (79-97); Monocytes # (Auto) 0.7 K/mm3 (0.0-0.8); Monocytes % (Auto) 5.8 % (0.0-7.3); Platelet Count 220 K/mm3 (140-440); Red Blood Count 3.97 M/mm3 (3.65-5.03); Red Cell Distribution Width 15.3 % (13.2-15.2)
[2022-04-22] MEDS: FAMOTIDINE 20 MG TAB PO SCH (11:05)
[2022-04-22] MEDS: PRENATAL VIT27-FE FUMARATE-FOLIC ACID VIT TAB PO SCH (11:05)
--- NOTE | 2022-04-22 11:54 | Progress Note ---
Assessment and Plan PPROM at 31.2wks, afebrile, hepatic steatosis in intermittent RUQ pain; pt has completed steroid course and mag sulfate for neuroprotection 1. 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 Appreciate APA and will continue Biweekly BPP/ZAY and wt every 3wksand deliver at 34wks if no maternal/ complications 3. Appreciate GI consult and pt to continue pepcid daily and to follow up as outpt post delivery 4. Continue vitamins daily All questions encouraged and answered Subjective Date of service: 04/22/22 Principal diagnosis: PPROM @ 31.2 with hepatic steatosis Interval history: pt has no complaints. Nurse states pt gets intermittent sharp pain to RUQ but declines any pain med. pt is hungry and did not like breakfast this morning. pt continues to sit upwards with large amount of leakage of clear fluid. pt admits to movement Objective - Constitutional Vitals: Vital Signs - 12hr 04/22/22 04/22/22 04/22/22 00:57 00:58 01:03 Temperature Pulse Rate 99 H 97 H 91 H Respiratory Rate Blood Pressure Blood Pressure [Left] O2 Sat by Pulse 90 93 97 Oximetry O2 Sat by Pulse Oximetry [ Bilateral] 04/22/22 04/22/22 04/22/22 01:08 01:13 01:18 Temperature Pulse Rate 94 H 90 92 H Respiratory Rate Blood Pressure Blood Pressure [Left] O2 Sat by Pulse 97 95 97 Oximetry O2 Sat by Pulse Oximetry [ Bilateral] 04/22/22 04/22/22 04/22/22 01:23 01:28 01:33 Temperature Pulse Rate 87 95 H 88 Respiratory Rate Blood Pressure Blood Pressure [Left] O2 Sat by Pulse 98 98 98 Oximetry O2 Sat by Pulse Oximetry [ Bilateral] 04/22/22 04/22/22 04/22/22 01:38 01:43 05:21 Temperature Pulse Rate 94 H 85 102 H Respiratory Rate Blood Pressure Blood Pressure [Left] O2 Sat by Pulse 97 79 L 97 Oximetry O2 Sat by Pulse Oximetry [ Bilateral] 04/22/22 04/22/22 04/22/22 05:23 05:24 08:44 Temperature 98.1 F Pulse Rate 90 90 135 H Respiratory 14 Rate Blood Pressure 98/53 Blood Pressure 98/53 [Left] O2 Sat by Pulse 97 84 Oximetry O2 Sat by Pulse Oximetry [ Bilateral] 04/22/22 04/22/22 04/22/22 08:49 08:54 08:59 Temperature Pulse Rate 95 H 100 H 98 H Respiratory Rate Blood Pressure Blood Pressure [Left] O2 Sat by Pulse 99 98 98 Oximetry O2 Sat by Pulse Oximetry [ Bilateral] 04/22/22 04/22/22 04/22/22 09:02 09:04 09:09 Temperature 98.5 F Pulse Rate 96 H 89 93 H Respiratory 20 Rate Blood Pressure 104/60 Blood Pressure [Left] O2 Sat by Pulse 96 96 Oximetry O2 Sat by Pulse 97 Oximetry [ Bilateral] 04/22/22 04/22/22 09:14 09:19 Temperature Pulse Rate 91 H 91 H Respiratory Rate Blood Pressure Blood Pressure [Left] O2 Sat by Pulse 96 97 Oximetry O2 Sat by Pulse Oximetry [ Bilateral] General appearance: Present: no acute distress - Neck Neck: normal ROM - Respiratory Respiratory effort: normal - Breasts Breasts: deferred - Cardiovascular Rhythm: regular Extremities: No edema - Gastrointestinal General gastrointestinal: Present: soft, non-tender - Genitourinary Female genitourinary: other (no fundal tenderness; FHR category I; no ctx) - Neurologic Neurologic: moves all extremities - Psychiatric Psychiatric: cooperative - Labs CBC & Chem 7: 04/22/22 10:01 04/17/22 12:44 Labs: Abnormal lab results 04/22/22 Range/Units 10:01 WBC 11.6 H (4.5-11.0) K/mm3 RDW 15.3 H (13.2-15.2) % Seg Neutrophils % 78.1 H (40.0-70.0) % Seg Neutrophils # 9.1 H (1.8-7.7) K/mm3 Medications & Allergies - Medications Allergies/Adverse Reactions: Allergies amoxicillin Allergy (Verified 04/13/22 09:21) Shortness of Breath ampicillin Allergy (Verified 04/13/22 09:21) Shortness of Breath Home Medications: Home Medications Medication Instructions Recorded Confirmed Last Taken Type Tablet 1 tab PO DAILY 04/22/22 04/22/22 1 Day Ago History ~04/21/22 Active Medications: Generic Name Dose Route Start Last Admin Trade Name Freq PRN Reason Stop Dose Admin Acetaminophen 650 mg 04/13/22 07:00 04/14/22 04:05 Acetaminophen 325 Mg Tab PO 650 mg Q4H PRN Administration Pain, Mild (1-3) Famotidine 20 mg 04/19/22 10:00 04/22/22 11:05 Famotidine 20 Mg Tab PO 20 mg QDAY PREMA Administration Loperamide HCl 2 mg 04/16/22 19:44 04/19/22 22:03 Loperamide 2 Mg Cap PO 2 mg Q2H PRN Administration Diarrhea Multivitamins/Iron/Calcium 1 each 04/15/22 10:00 04/22/22 11:05 [id number] Fumarate-Folic Acid Vit Tab PO 1 each QDAY PREMA Administration Phenazopyridine HCl 100 mg 04/19/22 05:23 Phenazopyridine 100 Mg Tab PO Q8H PRN Pain, Mild (1-3)
[2022-04-22] MEDS ORDERED: SODIUM CHLORIDE 0.9% 1000 ML 1,000 ML IV ONE (17:00)
[2022-04-22] MEDS: SIMETHICONE 80 MG CHEW TAB PO PRN (17:20)
--- NOTE | 2022-04-23 05:12 | Progress Note ---
Assessment and Plan PPROM at 31.3wks with hepatic steatosis, constipation that resolved yesterday 1. Appreciate APA and GI 2. Will continue present mgt, Biweekly BPP/ZAY and interval growth every 3-4kwks All questions encouraged and answered Subjective Date of service: 04/23/22 Principal diagnosis: PPROM @ 31.3 with hepatic steatosis Interval history: pt had BM yesterday, no fever or chills. Pain intermittent to RUQ and pt declines pain med. Objective - Constitutional Vitals: Vital Signs - 12hr 04/22/22 04/22/22 04/22/22 17:11 17:16 17:21 Temperature Pulse Rate 101 H 99 H 105 H Respiratory Rate Blood Pressure Blood Pressure [Right] O2 Sat by Pulse 97 97 97 Oximetry 04/22/22 04/22/22 04/22/22 17:26 17:31 17:36 Temperature Pulse Rate 100 H 97 H 100 H Respiratory Rate Blood Pressure Blood Pressure [Right] O2 Sat by Pulse 98 97 98 Oximetry 04/22/22 04/22/22 04/22/22 17:41 17:46 17:51 Temperature Pulse Rate 105 H 98 H 99 H Respiratory Rate Blood Pressure Blood Pressure [Right] O2 Sat by Pulse 99 100 99 Oximetry 04/22/22 04/22/22 04/22/22 17:56 18:01 18:06 Temperature Pulse Rate 114 H 101 H 101 H Respiratory Rate Blood Pressure Blood Pressure [Right] O2 Sat by Pulse 98 98 98 Oximetry 04/22/22 04/22/22 04/22/22 18:11 18:59 19:04 Temperature Pulse Rate 95 H 97 H 101 H Respiratory Rate Blood Pressure Blood Pressure [Right] O2 Sat by Pulse 99 99 98 Oximetry 04/22/22 04/22/22 04/22/22 19:09 19:14 19:19 Temperature Pulse Rate 89 97 H 99 H Respiratory Rate Blood Pressure Blood Pressure [Right] O2 Sat by Pulse 99 98 96 Oximetry 04/22/22 04/22/22 04/22/22 19:24 19:29 19:34 Temperature Pulse Rate 96 H 97 H 98 H Respiratory Rate Blood Pressure Blood Pressure [Right] O2 Sat by Pulse 96 96 95 Oximetry 04/22/22 04/22/22 04/22/22 19:39 19:44 19:49 Temperature Pulse Rate 100 H 97 H 97 H Respiratory Rate Blood Pressure Blood Pressure [Right] O2 Sat by Pulse 95 95 95 Oximetry 04/22/22 04/22/22 04/22/22 19:52 19:54 19:59 Temperature Pulse Rate 111 H 109 H 99 H Respiratory Rate Blood Pressure Blood Pressure [Right] O2 Sat by Pulse 94 95 95 Oximetry 04/22/22 04/22/22 04/22/22 20:01 20:04 20:08 Temperature Pulse Rate 99 H 100 H 100 H Respiratory Rate Blood Pressure Blood Pressure [Right] O2 Sat by Pulse 94 95 94 Oximetry 04/22/22 04/22/22 04/22/22 20:09 20:14 20:19 Temperature 97.8 F Pulse Rate 101 H 107 H 116 H Respiratory 16 Rate Blood Pressure Blood Pressure 99/57 [Right] O2 Sat by Pulse 94 96 98 Oximetry 04/22/22 04/22/22 04/22/22 20:20 23:23 23:28 Temperature Pulse Rate 95 H 91 H 94 H Respiratory Rate Blood Pressure 99/57 Blood Pressure [Right] O2 Sat by Pulse 96 97 Oximetry 04/22/22 04/22/22 04/22/22 23:33 23:38 23:43 Temperature Pulse Rate 92 H 94 H 94 H Respiratory Rate Blood Pressure Blood Pressure [Right] O2 Sat by Pulse 99 97 97 Oximetry 04/22/22 04/22/22 04/22/22 23:48 23:53 23:58 Temperature Pulse Rate 106 H 94 H 91 H Respiratory Rate Blood Pressure Blood Pressure [Right] O2 Sat by Pulse 97 97 97 Oximetry 04/23/22 04/23/22 04/23/22 00:03 00:08 00:13 Temperature Pulse Rate 95 H 94 H 92 H Respiratory Rate Blood Pressure Blood Pressure [Right] O2 Sat by Pulse 97 96 97 Oximetry 04/23/22 04/23/22 04/23/22 04:13 04:14 04:15 Temperature 96 F L Pulse Rate 97 H 92 H 89 Respiratory 14 Rate Blood Pressure 88/49 89/51 Blood Pressure [Right] O2 Sat by Pulse 96 Oximetry General appearance: Present: no acute distress - Neck Neck: normal ROM - Respiratory Respiratory effort: normal - Breasts Breasts: deferred - Cardiovascular Rhythm: regular Extremities: No edema - Gastrointestinal General gastrointestinal: Present: soft, non-tender - Genitourinary Female genitourinary: other (FHR with NST reactive. no ctx per nurse report) - Integumentary Integumentary: warm, dry - Neurologic Neurologic: moves all extremities - Psychiatric Psychiatric: cooperative - Labs CBC & Chem 7: 04/22/22 10:01 04/17/22 12:44 Labs: Abnormal lab results 04/22/22 Range/Units 10:01 WBC 11.6 H (4.5-11.0) K/mm3 RDW 15.3 H (13.2-15.2) % Seg Neutrophils % 78.1 H (40.0-70.0) % Seg Neutrophils # 9.1 H (1.8-7.7) K/mm3 Medications & Allergies - Medications Allergies/Adverse Reactions: Allergies amoxicillin Allergy (Verified 04/13/22 09:21) Shortness of Breath ampicillin Allergy (Verified 04/13/22 09:21) Shortness of Breath Home Medications: Home Medications Medication Instructions Recorded Confirmed Last Taken Type Tablet 1 tab PO DAILY 04/22/22 04/22/22 1 Day Ago History ~04/21/22 Active Medications: Generic Name Dose Route Start Last Admin Trade Name Freq PRN Reason Stop Dose Admin Acetaminophen 650 mg 04/13/22 07:00 04/14/22 04:05 Acetaminophen 325 Mg Tab PO 650 mg Q4H PRN Administration Pain, Mild (1-3) Famotidine 20 mg 04/19/22 10:00 04/22/22 11:05 Famotidine 20 Mg Tab PO 20 mg QDAY PREMA Administration Loperamide HCl 2 mg 04/16/22 19:44 04/19/22 22:03 Loperamide 2 Mg Cap PO 2 mg Q2H PRN Administration Diarrhea Multivitamins/Iron/Calcium 1 each 04/15/22 10:00 04/22/22 11:05 [id number] Fumarate-Folic Acid Vit Tab PO 1 each QDAY PREMA Administration Pantoprazole Sodium 40 mg 04/23/22 10:00 Pantoprazole 40 Mg Inj IV QDAY PREMA Phenazopyridine HCl 100 mg 04/19/22 05:23 Phenazopyridine 100 Mg Tab PO Q8H PRN Pain, Mild (1-3) Simethicone 80 mg 04/22/22 16:36 04/22/22 17:20 Simethicone 80 Mg Chew Tab PO 80 mg Q6H PRN Administration Gas pain
[2022-04-23] MEDS: FAMOTIDINE 20 MG TAB PO SCH (11:28)
[2022-04-23] MEDS: PANTOPRAZOLE 40 MG INJ IV SCH (11:33)
[2022-04-23] MEDS: PRENATAL VIT27-FE FUMARATE-FOLIC ACID VIT TAB PO SCH (11:34)
[2022-04-23] MEDS: SIMETHICONE 80 MG CHEW TAB PO PRN (11:58)
[2022-04-23] MEDS: LOPERAMIDE 2 MG CAP PO PRN ×2 (11:59→20:38)
[2022-04-23] MEDS: ACETAMINOPHEN 325 MG TAB PO PRN (11:59)
--- NOTE | 2022-04-24 05:38 | Ultrasound Report ---
ULTRASOUND BIOPHYSICAL PROFILE Ultrasound obstetrical follow-up INDICATION / CLINICAL INFORMATION: Decreased movement. COMPARISON: None available. FINDINGS: BREATHING MOVEMENT = 2 GROSS BODY MOVEMENT = 2 TONE = 2 QUALITATIVE AMNIOTIC FLUID VOLUME = 2 TOTAL BIOPHYSICAL SCORE = /8 ZAY = 8 cm PRESENTATION: Cephalic. HEART RATE (beats per minute): 122 Bipyramidal diameter measures 21 weeks and 4 days. Head circumference measures 32 weeks and 4 days. A bdominal circumference measures 30 weeks and 6 days. Femur length measures 31 weeks and 6 days. IMPRESSION: 1. biophysical profile = 04/04 2. Single living intrauterine measuring 31 weeks and 5 days. Signer Name: Rafiq Pedraza MD Signed: 04/24/2022 5:33 AM Workstation Name: [email or web address]
[2022-04-24] MEDS: PRENATAL VIT27-FE FUMARATE-FOLIC ACID VIT TAB PO SCH (12:15)
[2022-04-24] MEDS: FAMOTIDINE 20 MG TAB PO SCH (12:15)
[2022-04-24] MEDS: PANTOPRAZOLE 40 MG INJ IV SCH (12:18)
[2022-04-24] MEDS: LOPERAMIDE 2 MG CAP PO PRN (19:09)
--- NOTE | 2022-04-24 22:23 | Progress Note ---
Assessment and Plan A: PPROM, now 31.4wks, AMA Hepatic Steotosis BPP/ZYA/EFW bi weekly APA/GI consults P: Continue current management Continuous TOCO/EFM Subjective - Subjective Date of service: 04/24/22 (161) Principal diagnosis: PPROM,hepatic steatosis Patient reports: loss of fluid, movement normal Objective - Vital Signs Vital Signs: Vital Signs - 12hr 04/24/22 04/24/22 04/24/22 11:05 11:10 11:15 Temperature Pulse Rate 94 H 85 98 H Respiratory Rate Blood Pressure Blood Pressure [Left] O2 Sat by Pulse 98 97 98 Oximetry O2 Sat by Pulse Oximetry [ Bilateral] 04/24/22 04/24/22 04/24/22 11:20 11:25 11:30 Temperature Pulse Rate 88 95 H 107 H Respiratory Rate Blood Pressure Blood Pressure [Left] O2 Sat by Pulse 96 97 98 Oximetry O2 Sat by Pulse Oximetry [ Bilateral] 04/24/22 04/24/22 04/24/22 11:35 11:40 11:42 Temperature Pulse Rate 95 H 94 H 108 H Respiratory Rate Blood Pressure Blood Pressure [Left] O2 Sat by Pulse 97 98 90 Oximetry O2 Sat by Pulse Oximetry [ Bilateral] 04/24/22 04/24/22 04/24/22 11:45 11:48 11:50 Temperature Pulse Rate 104 H 93 H 91 H Respiratory Rate Blood Pressure Blood Pressure [Left] O2 Sat by Pulse 92 90 97 Oximetry O2 Sat by Pulse Oximetry [ Bilateral] 04/24/22 04/24/22 04/24/22 11:55 12:00 12:05 Temperature Pulse Rate 93 H 97 H 89 Respiratory Rate Blood Pressure Blood Pressure [Left] O2 Sat by Pulse 97 97 97 Oximetry O2 Sat by Pulse Oximetry [ Bilateral] 04/24/22 04/24/22 04/24/22 12:09 12:10 14:01 Temperature Pulse Rate 92 H 90 Respiratory Rate Blood Pressure Blood Pressure [Left] O2 Sat by Pulse 93 96 82 L Oximetry O2 Sat by Pulse Oximetry [ Bilateral] 04/24/22 04/24/22 04/24/22 14:02 14:03 18:53 Temperature 98.7 F Pulse Rate 95 H 98 H 93 H Respiratory 18 Rate Blood Pressure 105/68 Blood Pressure 105/68 [Left] O2 Sat by Pulse 96 99 Oximetry O2 Sat by Pulse Oximetry [ Bilateral] 04/24/22 04/24/22 04/24/22 19:04 19:05 19:09 Temperature Pulse Rate 41 L 94 H 104 H Respiratory Rate Blood Pressure Blood Pressure [Left] O2 Sat by Pulse 84 84 98 Oximetry O2 Sat by Pulse Oximetry [ Bilateral] 04/24/22 04/24/22 04/24/22 19:10 19:14 19:19 Temperature Pulse Rate 110 H 104 H Respiratory Rate Blood Pressure Blood Pressure [Left] O2 Sat by Pulse 98 99 Oximetry O2 Sat by Pulse 98 Oximetry [ Bilateral] 04/24/22 04/24/22 04/24/22 19:24 19:29 19:34 Temperature Pulse Rate 98 H 89 97 H Respiratory Rate Blood Pressure Blood Pressure [Left] O2 Sat by Pulse 100 99 98 Oximetry O2 Sat by Pulse Oximetry [ Bilateral] 04/24/22 04/24/22 04/24/22 19:39 19:44 19:49 Temperature Pulse Rate 96 H 97 H 102 H Respiratory Rate Blood Pressure Blood Pressure [Left] O2 Sat by Pulse 99 99 99 Oximetry O2 Sat by Pulse Oximetry [ Bilateral] 04/24/22 04/24/22 04/24/22 19:54 19:59 20:04 Temperature Pulse Rate 96 H 107 H 94 H Respiratory Rate Blood Pressure Blood Pressure [Left] O2 Sat by Pulse 97 98 99 Oximetry O2 Sat by Pulse Oximetry [ Bilateral] 04/24/22 04/24/22 04/24/22 20:09 20:14 20:19 Temperature Pulse Rate 101 H 101 H 100 H Respiratory Rate Blood Pressure Blood Pressure [Left] O2 Sat by Pulse 97 99 98 Oximetry O2 Sat by Pulse Oximetry [ Bilateral] 04/24/22 04/24/22 04/24/22 20:24 20:28 20:29 Temperature Pulse Rate 92 H 92 H 91 H Respiratory Rate Blood Pressure Blood Pressure [Left] O2 Sat by Pulse 96 94 98 Oximetry O2 Sat by Pulse Oximetry [ Bilateral] 04/24/22 04/24/22 04/24/22 20:34 20:39 20:44 Temperature Pulse Rate 90 90 100 H Respiratory Rate Blood Pressure Blood Pressure [Left] O2 Sat by Pulse 97 96 96 Oximetry O2 Sat by Pulse Oximetry [ Bilateral] 04/24/22 04/24/22 04/24/22 20:49 20:54 20:59 Temperature Pulse Rate 93 H 93 H 93 H Respiratory Rate Blood Pressure Blood Pressure [Left] O2 Sat by Pulse 99 98 97 Oximetry O2 Sat by Pulse Oximetry [ Bilateral] 04/24/22 04/24/22 04/24/22 21:04 21:09 21:14 Temperature Pulse Rate 91 H 93 H 99 H Respiratory Rate Blood Pressure Blood Pressure [Left] O2 Sat by Pulse 97 98 98 Oximetry O2 Sat by Pulse Oximetry [ Bilateral] 04/24/22 04/24/22 04/24/22 21:19 21:24 21:29 Temperature Pulse Rate 97 H 89 96 H Respiratory Rate Blood Pressure Blood Pressure [Left] O2 Sat by Pulse 99 98 98 Oximetry O2 Sat by Pulse Oximetry [ Bilateral] 04/24/22 04/24/22 04/24/22 21:34 21:39 21:44 Temperature Pulse Rate 97 H 92 H 99 H Respiratory Rate Blood Pressure Blood Pressure [Left] O2 Sat by Pulse 98 98 99 Oximetry O2 Sat by Pulse Oximetry [ Bilateral] 04/24/22 04/24/22 04/24/22 21:49 21:54 21:59 Temperature Pulse Rate 104 H 93 H 100 H Respiratory Rate Blood Pressure Blood Pressure [Left] O2 Sat by Pulse 98 97 97 Oximetry O2 Sat by Pulse Oximetry [ Bilateral] 04/24/22 04/24/22 04/24/22 22:04 22:09 22:14 Temperature Pulse Rate 96 H 104 H 100 H Respiratory Rate Blood Pressure Blood Pressure [Left] O2 Sat by Pulse 97 98 97 Oximetry O2 Sat by Pulse Oximetry [ Bilateral] - Exam Breasts: deferred Cardiovascular: Regular rate Lungs: Clear to auscultation Abdomen: Present: normal appearance, soft FHR: category 1 Uterine Contraction Pattern: Absent Extremities: normal Deep Tendon Reflex Grade: Normal +2 - Labs Labs: Abnormal Labs 04/13/22 04/13/22 04/13/22 12:11 12:11 12:11 WBC RBC RDW Seg Neutrophils % Seg Neutrophils # APTT Sodium 136 L Carbon Dioxide Creatinine 0.3 L Glucose Magnesium 3.20 H 3.10 H Total Protein Albumin Triglycerides Cholesterol HDL Cholesterol Lipase Urine Creatinine Membranes Rupture 04/13/22 04/13/22 04/15/22 19:38 Unknown 06:29 WBC RBC RDW Seg Neutrophils % Seg Neutrophils # APTT 23.9 L Sodium Carbon Dioxide Creatinine Glucose Magnesium 3.10 H Total Protein Albumin Triglycerides Cholesterol HDL Cholesterol Lipase Urine Creatinine Membranes Rupture Positive A 04/15/22 04/17/22 04/17/22 06:29 12:44 12:44 WBC RBC 3.50 L RDW Seg Neutrophils % 78.8 H Seg Neutrophils # 8.4 H APTT Sodium Carbon Dioxide 20 L Creatinine 0.3 L 0.4 L Glucose 113 H Magnesium Total Protein 6.2 L 5.9 L Albumin 3.4 L 3.7 L Triglycerides 174 H Cholesterol 216 H HDL Cholesterol 108 H Lipase Urine Creatinine Membranes Rupture 04/17/22 04/19/22 04/20/22 15:35 18:40 Unknown WBC RBC RDW Seg Neutrophils % Seg Neutrophils # APTT Sodium Carbon Dioxide Creatinine Glucose Magnesium Total Protein Albumin Triglycerides Cholesterol HDL Cholesterol Lipase 65 H Urine Creatinine 27.2 H Membranes Rupture Positive A 04/22/22 10:01 WBC 11.6 H RBC RDW 15.3 H Seg Neutrophils % 78.1 H Seg Neutrophils # 9.1 H APTT Sodium Carbon Dioxide Creatinine Glucose Magnesium Total Protein Albumin Triglycerides Cholesterol HDL Cholesterol Lipase Urine Creatinine Membranes Rupture
[2022-04-25] MEDS: FAMOTIDINE 20 MG TAB PO SCH (09:24)
[2022-04-25] MEDS: PRENATAL VIT27-FE FUMARATE-FOLIC ACID VIT TAB PO SCH (09:24)
--- NOTE | 2022-04-25 09:49 | Progress Note ---
Assessment and Plan A: IUP @ 31 5/7 Weeks PPROM P: Expectant Management Subjective - Subjective Date of service: 04/25/22 Principal diagnosis: PPROM,hepatic steatosis Patient reports: loss of fluid, movement normal Objective - Vital Signs Vital Signs: Vital Signs - 12hr 04/24/22 04/24/22 04/24/22 21:49 21:54 21:59 Temperature Pulse Rate 104 H 93 H 100 H Respiratory Rate Blood Pressure O2 Sat by Pulse 98 97 97 Oximetry O2 Sat by Pulse Oximetry [ Bilateral] 04/24/22 04/24/22 04/24/22 22:04 22:09 22:14 Temperature Pulse Rate 96 H 104 H 100 H Respiratory Rate Blood Pressure O2 Sat by Pulse 97 98 97 Oximetry O2 Sat by Pulse Oximetry [ Bilateral] 04/24/22 04/24/22 04/25/22 22:19 22:24 07:03 Temperature Pulse Rate 93 H 94 H 85 Respiratory Rate Blood Pressure 111/64 O2 Sat by Pulse 98 98 86 Oximetry O2 Sat by Pulse Oximetry [ Bilateral] 04/25/22 04/25/22 04/25/22 07:04 07:08 07:09 Temperature 98.3 F Pulse Rate 123 H 86 Respiratory 14 Rate Blood Pressure O2 Sat by Pulse 87 99 Oximetry O2 Sat by Pulse 99 Oximetry [ Bilateral] 04/25/22 04/25/22 04/25/22 07:14 07:19 07:24 Temperature Pulse Rate 87 87 83 Respiratory Rate Blood Pressure O2 Sat by Pulse 97 98 98 Oximetry O2 Sat by Pulse Oximetry [ Bilateral] 04/25/22 04/25/22 04/25/22 07:29 07:34 07:39 Temperature Pulse Rate 89 92 H 88 Respiratory Rate Blood Pressure O2 Sat by Pulse 97 98 98 Oximetry O2 Sat by Pulse Oximetry [ Bilateral] 04/25/22 04/25/22 07:44 09:23 Temperature 98.8 F Pulse Rate 90 Respiratory Rate Blood Pressure O2 Sat by Pulse 97 Oximetry O2 Sat by Pulse Oximetry [ Bilateral] - Exam Breasts: normal Cardiovascular: Regular rate Abdomen: Present: normal appearance, soft Uterus: Present: normal, firm, fundal height above umbilicus FHR: auscultation normal Uterine Contraction Monitor Mode: External Extremities: normal - Labs Labs: Abnormal Labs 04/13/22 04/13/22 04/13/22 12:11 12:11 12:11 WBC RBC RDW Seg Neutrophils % Seg Neutrophils # APTT Sodium 136 L Carbon Dioxide Creatinine 0.3 L Glucose Magnesium 3.20 H 3.10 H Total Protein Albumin Triglycerides Cholesterol HDL Cholesterol Lipase Urine Creatinine Membranes Rupture 04/13/22 04/13/22 04/15/22 19:38 Unknown 06:29 WBC RBC RDW Seg Neutrophils % Seg Neutrophils # APTT 23.9 L Sodium Carbon Dioxide Creatinine Glucose Magnesium 3.10 H Total Protein Albumin Triglycerides Cholesterol HDL Cholesterol Lipase Urine Creatinine Membranes Rupture Positive A 04/15/22 04/17/22 04/17/22 06:29 12:44 12:44 WBC RBC 3.50 L RDW Seg Neutrophils % 78.8 H Seg Neutrophils # 8.4 H APTT Sodium Carbon Dioxide 20 L Creatinine 0.3 L 0.4 L Glucose 113 H Magnesium Total Protein 6.2 L 5.9 L Albumin 3.4 L 3.7 L Triglycerides 174 H Cholesterol 216 H HDL Cholesterol 108 H Lipase Urine Creatinine Membranes Rupture 04/17/22 04/19/22 04/20/22 15:35 18:40 Unknown WBC RBC RDW Seg Neutrophils % Seg Neutrophils # APTT Sodium Carbon Dioxide Creatinine Glucose Magnesium Total Protein Albumin Triglycerides Cholesterol HDL Cholesterol Lipase 65 H Urine Creatinine 27.2 H Membranes Rupture Positive A 04/22/22 10:01 WBC 11.6 H RBC RDW 15.3 H Seg Neutrophils % 78.1 H Seg Neutrophils # 9.1 H APTT Sodium Carbon Dioxide Creatinine Glucose Magnesium Total Protein Albumin Triglycerides Cholesterol HDL Cholesterol Lipase Urine Creatinine Membranes Rupture
[2022-04-25] MEDS: LOPERAMIDE 2 MG CAP PO PRN (16:33)
[2022-04-26] MEDS: FAMOTIDINE 20 MG TAB PO SCH (10:01)
[2022-04-26] MEDS: PRENATAL VIT27-FE FUMARATE-FOLIC ACID VIT TAB PO SCH (10:01)
[2022-04-26 12:16] LABS: Hematocrit 34.2 % (30.3-42.9); Mean Corpuscular HGB Conc 32 % (30-34); Mean Corpuscular Volume 88 fl (79-97); Platelet Count 225 K/mm3 (140-440); Red Blood Count 3.88 M/mm3 (3.65-5.03); Red Cell Distribution Width 15.1 % (13.2-15.2)
--- NOTE | 2022-04-26 20:24 | Progress Note ---
Assessment and Plan PPROM at 32.0wks, hepatatic steatosis stable 1. Appreciate [facility] 2. continue present mgt with biweekly BPP/ZAY and also weight every 3wk 3. Appreciate GI Subjective Date of service: 04/26/22 Principal diagnosis: PPROM at 32.0wks,hepatic steatosis Interval history: pt has no complaints. denies abd pain. Still intermittent clear LOF. Denies v ag bleed. Admits to movement Objective - Constitutional Vitals: Vital Signs - 12hr 04/26/22 04/26/22 04/26/22 08:27 08:32 08:37 Temperature Pulse Rate 83 83 80 Respiratory Rate Blood Pressure O2 Sat by Pulse 95 95 96 Oximetry 04/26/22 04/26/22 04/26/22 08:43 08:47 08:52 Temperature Pulse Rate 80 89 86 Respiratory Rate Blood Pressure O2 Sat by Pulse 95 96 95 Oximetry 04/26/22 04/26/22 04/26/22 08:56 08:57 09:02 Temperature Pulse Rate 91 H 93 H 91 H Respiratory Rate Blood Pressure O2 Sat by Pulse 94 94 96 Oximetry 04/26/22 04/26/22 04/26/22 09:03 09:07 09:13 Temperature Pulse Rate 90 98 H 90 Respiratory Rate Blood Pressure O2 Sat by Pulse 93 97 98 Oximetry 04/26/22 04/26/22 04/26/22 13:43 13:44 16:08 Temperature Pulse Rate 94 H Respiratory Rate Blood Pressure 109/61 O2 Sat by Pulse 83 L 81 L Oximetry 04/26/22 04/26/22 04/26/22 16:13 16:14 16:18 Temperature 98.9 F Pulse Rate 62 105 H Respiratory 20 Rate Blood Pressure 112/62 O2 Sat by Pulse 88 97 Oximetry 04/26/22 04/26/22 04/26/22 16:23 16:28 16:33 Temperature Pulse Rate 109 H 102 H 99 H Respiratory Rate Blood Pressure O2 Sat by Pulse 96 98 96 Oximetry 04/26/22 04/26/22 04/26/22 16:38 16:39 16:43 Temperature Pulse Rate 96 H 93 H 105 H Respiratory Rate Blood Pressure O2 Sat by Pulse 97 93 97 Oximetry 04/26/22 04/26/22 04/26/22 16:48 16:53 16:58 Temperature Pulse Rate 102 H 98 H 93 H Respiratory Rate Blood Pressure O2 Sat by Pulse 97 96 97 Oximetry 04/26/22 04/26/22 04/26/22 17:03 17:08 17:13 Temperature Pulse Rate 95 H 98 H 101 H Respiratory Rate Blood Pressure O2 Sat by Pulse 98 97 98 Oximetry General appearance: Present: no acute distress - Neck Neck: normal ROM - Respiratory Respiratory effort: normal Extremities: No edema - Gastrointestinal General gastrointestinal: Present: soft, non-tender - Genitourinary Female genitourinary: other (FHR with NST reactive. no ctx) - Integumentary Integumentary: warm, dry - Neurologic Neurologic: moves all extremities - Psychiatric Psychiatric: cooperative - Labs CBC & Chem 7: 04/26/22 11:55 04/17/22 12:44 Medications & Allergies - Medications Allergies/Adverse Reactions: Allergies amoxicillin Allergy (Verified 04/13/22 09:21) Shortness of Breath ampicillin Allergy (Verified 04/13/22 09:21) Shortness of Breath Home Medications: Home Medications Medication Instructions Recorded Confirmed Last Taken Type Tablet 1 tab PO DAILY 04/22/22 04/22/22 1 Day Ago History ~04/21/22 Active Medications: Generic Name Dose Route Start Last Admin Trade Name Freq PRN Reason Stop Dose Admin Acetaminophen 650 mg 04/13/22 07:00 04/23/22 11:59 Acetaminophen 325 Mg Tab PO 650 mg Q4H PRN Administration Pain, Mild (1-3) Famotidine 20 mg 04/19/22 10:00 04/26/22 10:01 Famotidine 20 Mg Tab PO 20 mg QDAY PREMA Administration Loperamide HCl 2 mg 04/16/22 19:44 04/25/22 16:33 Loperamide 2 Mg Cap PO 2 mg Q2H PRN Administration Diarrhea Multivitamins/Iron/Calcium 1 each 04/15/22 10:00 04/26/22 10:01 Itd34-Ly Fumarate-Folic Acid Vit Tab PO 1 each QDAY PREMA Administration Phenazopyridine HCl 100 mg 04/19/22 05:23 Phenazopyridine 100 Mg Tab PO Q8H PRN Pain, Mild (1-3) Simethicone 80 mg 04/22/22 16:36 04/23/22 11:58 Simethicone 80 Mg Chew Tab PO 80 mg Q6H PRN Administration Gas pain
--- NOTE | 2022-04-27 08:53 | Consultation ---
History of Present Illness Consult date: 04/27/22 Requesting physician: MARY KAY TURNER History of present illness: [employer] Utilized ID [id number] - García - 36 YO EGA 32 0/7 wks admitted following SROM. She had a gush o fluid and has had a + ROM screen this on admission. S/P MgSO4, BMZ and IV antibiotics. ( C Diff CX was Negative ) Doing well Reports Increased Leakage - 04/27/22 Denies Fever, pain ctx Abd gravid NT US [facility] 04/18/22 BPP 04/04 ZAY at 8.1 cm US [facility] 04/13/22 ZAY at 12.6 cm [facility] 04/24/21 ZAY t 8 cm and EFW at 1762 grams at 33% 04/13/22 EFW at 1512 g at 41% GI CONSULT DONE # RUQ pain - new onset pain since admission. - work up so far with RUQ US showing hepatic steatosis and normal gallbladder. - LFTs normal. - clinically improving. - lipase at 60s. - recommend famotidine. # Hepatic steatosis - likely 2/2 fatty liver. elevated lipids with triglyceride and LDL - unlikely to cause pain and likely chronic. - would need follow up in outpatient GI clinic . 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 Family/Genetic History: none - Obstetrical History : 2 Medications and Allergies Allergies Allergy/AdvReac Type Severity Reaction Status Date / Time amoxicillin Allergy Shortness Verified 04/13/22 09:21 of Breath ampicillin Allergy Shortness Verified 04/13/22 09:21 of Breath Home Medications Medication Instructions Recorded Confirmed Last Taken Type Tablet 1 tab PO DAILY 04/22/22 04/22/22 1 Day Ago History ~04/21/22 Active Meds: Active Medications Acetaminophen (Acetaminophen 325 Mg Tab) 650 mg PO Q4H PRN PRN Reason: Pain, Mild (1-3) Last Admin: 04/23/22 11:59 Dose: 650 mg Famotidine (Famotidine 20 Mg Tab) 20 mg PO QDAY [facility] Last Admin: 04/26/22 10:01 Dose: 20 mg Loperamide HCl (Loperamide 2 Mg Cap) 2 mg PO Q2H PRN PRN Reason: Diarrhea Last Admin: 04/25/22 16:33 Dose: 2 mg Multivitamins/Iron/Calcium ( [id number] Fumarate-Folic Acid Vit Tab) 1 each PO QDAY [facility] Last Admin: 04/26/22 10:01 Dose: 1 each Phenazopyridine HCl (Phenazopyridine 100 Mg Tab) 100 mg PO Q8H PRN PRN Reason: Pain, Mild (1-3) Simethicone (Simethicone 80 Mg Chew Tab) 80 mg PO Q6H PRN PRN Reason: Gas pain Last Admin: 04/23/22 11:58 Dose: 80 mg - Vital Signs Vital signs: Vital Signs Temp Resp Pulse Ox 98.2 F 14 100 04/13/22 05:23 04/13/22 05:23 04/13/22 05:23 Temp Pulse Resp BP Pulse Ox 97.8 F 91 H 16 88/44 98 04/27/22 05:05 04/27/22 06:31 04/27/22 05:05 04/27/22 06:31 04/27/22 05:05 Results Result Diagrams: 04/26/22 11:55 04/17/22 12:44 All other labs normal. Assessment and Plan IMPRESSIONS: 1. IUP 32 0/7 weeks, with normal growth - EFW at 33% on 04/24/22 2. PPROM 3. Reassuring tracing 4. S/P Mg and Steroids 5. PCN allergy 6. Benign course prior to SROM 7. Low risk on NIPT, ONTD, GTT screening 8. No Evidence of Chorio 9. Hepatic steatosis - likely 2/2 fatty liver. elevated lipids with triglyceride and LD RECOMMENDATIONS: 1. Please see GI Consult 2. Twice weekly BPP 3. Deliver for ususal OB indications, or at 34 weeks 4. APA will follow-up as requested 5. Recommend FU with GI after delivery for fatty liver 6. EFW q 3 weeks
[2022-04-27] MEDS: ACETAMINOPHEN 325 MG TAB PO PRN (10:14)
[2022-04-27] MEDS: FAMOTIDINE 20 MG TAB PO SCH (10:14)
[2022-04-27] MEDS: PRENATAL VIT27-FE FUMARATE-FOLIC ACID VIT TAB PO SCH (10:14)
--- NOTE | 2022-04-27 23:42 | Ultrasound Report ---
ULTRASOUND BIOPHYSICAL PROFILE Ultrasound obstetrical limited INDICATION / CLINICAL INFORMATION: Well-being. COMPARISON: None available. FINDINGS: BREATHING MOVEMENT = 2 GROSS BODY MOVEMENT = 2 TONE = 2 QUALITATIVE AMNIOTIC FLUID VOLUME = 2 TOTAL BIOPHYSICAL SCORE = 8/8 AMNIOTIC FLUID INDEX (cm) = 7.9 PRESENTATION: Cephalic. HEART RATE (beats per minute): 147 IMPRESSION: 1. biophysical profile = 8/8 2. ZAY measures 7.9 cm Signer Name: Rafiq Pedraza MD Signed: 04/27/2022 11:38 PM Workstation Name: [employer]
[2022-04-28] MEDS: ZOLPIDEM 5 MG TAB PO PRN (01:32)
[2022-04-28] MEDS: PRENATAL VIT27-FE FUMARATE-FOLIC ACID VIT TAB PO SCH (11:06)
[2022-04-28] MEDS: FAMOTIDINE 20 MG TAB PO SCH (11:06)
--- NOTE | 2022-04-28 16:20 | Progress Note ---
Assessment and Plan A: @ 32.1 WKS PPROM CAT 1 tracing Hepatic Steotosis P: GI consult/out patient follow up [facility] consult BPP 2x/week., EFW q3wks Delv @34 or when indicated Subjective - Subjective Date of service: 04/28/22 Principal diagnosis: PPROM,hepatic steatosis, 32.1 wks gestation today Patient reports: loss of fluid, movement normal Objective - Vital Signs Vital Signs: Vital Signs - 12hr 04/28/22 04/28/22 04/28/22 06:33 09:58 10:02 Temperature 97.9 F Pulse Rate 82 Respiratory Rate Blood Pressure Blood Pressure [Left] O2 Sat by Pulse 89 96 Oximetry 04/28/22 04/28/22 04/28/22 10:07 10:12 10:17 Temperature Pulse Rate 85 86 86 Respiratory Rate Blood Pressure Blood Pressure [Left] O2 Sat by Pulse 97 97 96 Oximetry 04/28/22 04/28/22 04/28/22 10:22 10:27 10:32 Temperature Pulse Rate 81 85 85 Respiratory Rate Blood Pressure Blood Pressure [Left] O2 Sat by Pulse 96 96 95 Oximetry 04/28/22 04/28/22 04/28/22 10:37 10:42 10:47 Temperature Pulse Rate 85 90 86 Respiratory Rate Blood Pressure Blood Pressure [Left] O2 Sat by Pulse 95 95 95 Oximetry 04/28/22 04/28/22 04/28/22 10:52 10:57 11:00 Temperature Pulse Rate 85 89 86 Respiratory Rate Blood Pressure 98/53 Blood Pressure [Left] O2 Sat by Pulse 95 94 Oximetry 04/28/22 04/28/22 04/28/22 11:05 15:39 16:00 Temperature 97.8 F 98.9 F Pulse Rate 95 H 98 H Respiratory 18 16 Rate Blood Pressure 106/54 Blood Pressure 95/53 [Left] O2 Sat by Pulse 96 77 L Oximetry - Exam Breasts: deferred Cardiovascular: Regular rate Lungs: Clear to auscultation, Normal air movement Abdomen: Present: normal appearance, soft Uterus: Present: fundal height above umbilicus FHR: category 1 Uterine Contraction Pattern: Absent - Labs Labs: Abnormal Labs 04/13/22 04/13/22 04/13/22 12:11 12:11 12:11 WBC RBC RDW Seg Neutrophils % Seg Neutrophils # APTT Sodium 136 L Carbon Dioxide Creatinine 0.3 L Glucose Magnesium 3.20 H 3.10 H Total Protein Albumin Triglycerides Cholesterol HDL Cholesterol Lipase Urine Creatinine Membranes Rupture 04/13/22 04/13/22 04/15/22 19:38 Unknown 06:29 WBC RBC RDW Seg Neutrophils % Seg Neutrophils # APTT 23.9 L Sodium Carbon Dioxide Creatinine Glucose Magnesium 3.10 H Total Protein Albumin Triglycerides Cholesterol HDL Cholesterol Lipase Urine Creatinine Membranes Rupture Positive A 04/15/22 04/17/22 04/17/22 06:29 12:44 12:44 WBC RBC 3.50 L RDW Seg Neutrophils % 78.8 H Seg Neutrophils # 8.4 H APTT Sodium Carbon Dioxide 20 L Creatinine 0.3 L 0.4 L Glucose 113 H Magnesium Total Protein 6.2 L 5.9 L Albumin 3.4 L 3.7 L Triglycerides 174 H Cholesterol 216 H HDL Cholesterol 108 H Lipase Urine Creatinine Membranes Rupture 04/17/22 04/19/22 04/20/22 15:35 18:40 Unknown WBC RBC RDW Seg Neutrophils % Seg Neutrophils # APTT Sodium Carbon Dioxide Creatinine Glucose Magnesium Total Protein Albumin Triglycerides Cholesterol HDL Cholesterol Lipase 65 H Urine Creatinine 27.2 H Membranes Rupture Positive A 04/22/22 10:01 WBC 11.6 H RBC RDW 15.3 H Seg Neutrophils % 78.1 H Seg Neutrophils # 9.1 H APTT Sodium Carbon Dioxide Creatinine Glucose Magnesium Total Protein Albumin Triglycerides Cholesterol HDL Cholesterol Lipase Urine Creatinine Membranes Rupture - Results US- obstetric: pending (BPP 2X/WEEK, EFW Q3WKS)
[2022-04-29] MEDS: ZOLPIDEM 5 MG TAB PO PRN (01:03)
[2022-04-29 05:06] LABS: Color,Urine Colorless (Yellow); WBC,Urine < 1.0 /HPF (0.0-6.0)
[2022-04-29] MEDS: FAMOTIDINE 20 MG TAB PO SCH (10:05)
[2022-04-29] MEDS: PRENATAL VIT27-FE FUMARATE-FOLIC ACID VIT TAB PO SCH (10:05)
--- NOTE | 2022-04-29 14:43 | Event Note ---
Date: 04/29/22 Assessed patient, states still with lower abdominal pain. Abdomen is slightly tender. states some leaking of fluid with light pink blood noted. TOCO/EFM place for observation, RN informed. VSS
--- NOTE | 2022-04-30 08:57 | Progress Note ---
Assessment and Plan - Patient Problems (1) AMA (advanced maternal age) multigravida 35+ Current Visit: Yes Status: Acute Plan to address problem: continue expectant management deliver for signs and symptoms of chorioamnionitis (2) premature rupture of membranes (PPROM) with onset of labor within 24 hours of rupture in third trimester, antepartum Current Visit: Yes Status: Acute Subjective - Subjective Date of service: 04/30/22 Principal diagnosis: PPROM,hepatic steatosis, 32.1 wks gestation today Interval history: Patient admitted for PPROM. She is currently without complaints. Remains afebrile Patient reports: loss of fluid, movement normal, no new complaints Objective - Vital Signs Vital Signs: Vital Signs - 12hr 04/30/22 04/30/22 04/30/22 07:48 07:49 08:04 Temperature 98.8 F Pulse Rate 90 90 Respiratory 18 Rate Blood Pressure 95/51 O2 Sat by Pulse 98 98 Oximetry O2 Sat by Pulse 98 Oximetry [ Bilateral] - Labs Labs: Abnormal Labs 04/13/22 04/13/22 04/13/22 12:11 12:11 12:11 WBC RBC RDW Seg Neutrophils % Seg Neutrophils # APTT Sodium 136 L Carbon Dioxide Creatinine 0.3 L Glucose Magnesium 3.20 H 3.10 H Total Protein Albumin Triglycerides Cholesterol HDL Cholesterol Lipase Urine Creatinine Membranes Rupture 04/13/22 04/13/22 04/15/22 19:38 Unknown 06:29 WBC RBC RDW Seg Neutrophils % Seg Neutrophils # APTT 23.9 L Sodium Carbon Dioxide Creatinine Glucose Magnesium 3.10 H Total Protein Albumin Triglycerides Cholesterol HDL Cholesterol Lipase Urine Creatinine Membranes Rupture Positive A 04/15/22 04/17/22 04/17/22 06:29 12:44 12:44 WBC RBC 3.50 L RDW Seg Neutrophils % 78.8 H Seg Neutrophils # 8.4 H APTT Sodium Carbon Dioxide 20 L Creatinine 0.3 L 0.4 L Glucose 113 H Magnesium Total Protein 6.2 L 5.9 L Albumin 3.4 L 3.7 L Triglycerides 174 H Cholesterol 216 H HDL Cholesterol 108 H Lipase Urine Creatinine Membranes Rupture 04/17/22 04/19/22 04/20/22 15:35 18:40 Unknown WBC RBC RDW Seg Neutrophils % Seg Neutrophils # APTT Sodium Carbon Dioxide Creatinine Glucose Magnesium Total Protein Albumin Triglycerides Cholesterol HDL Cholesterol Lipase 65 H Urine Creatinine 27.2 H Membranes Rupture Positive A 04/22/22 10:01 WBC 11.6 H RBC RDW 15.3 H Seg Neutrophils % 78.1 H Seg Neutrophils # 9.1 H APTT Sodium Carbon Dioxide Creatinine Glucose Magnesium Total Protein Albumin Triglycerides Cholesterol HDL Cholesterol Lipase Urine Creatinine Membranes Rupture
[2022-04-30] MEDS: PRENATAL VIT27-FE FUMARATE-FOLIC ACID VIT TAB PO SCH (09:59)
[2022-04-30] MEDS: FAMOTIDINE 20 MG TAB PO SCH (09:59)
[2022-05-01] MEDS: ZOLPIDEM 5 MG TAB PO PRN ×2 (01:00→22:25)
[2022-05-01] MEDS: PRENATAL VIT27-FE FUMARATE-FOLIC ACID VIT TAB PO SCH (10:54)
[2022-05-01] MEDS: FAMOTIDINE 20 MG TAB PO SCH (10:55)
--- NOTE | 2022-05-01 13:10 | Progress Note ---
Assessment and Plan A: PPROM Hepatic steotosis mild lower abd pessure/ no pain today leaking of fluid with pink tinge VSS P: Continue expectant management monitor for chorio Subjective - Subjective Principal diagnosis: PPROM,hepatic steatosis, 32.3 wks gestation today Patient reports: loss of fluid (some light pink tinge ), movement normal, no new complaints Objective - Vital Signs Vital Signs: Vital Signs - 12hr 05/01/22 05/01/22 05/01/22 04:53 04:54 04:59 Temperature Pulse Rate 93 H 97 H Respiratory Rate Blood Pressure 96/52 O2 Sat by Pulse 76 L 96 96 Oximetry O2 Sat by Pulse Oximetry [ Bilateral] 05/01/22 05/01/22 05/01/22 05:04 05:09 05:14 Temperature Pulse Rate 96 H 94 H 91 H Respiratory Rate Blood Pressure O2 Sat by Pulse 96 96 96 Oximetry O2 Sat by Pulse Oximetry [ Bilateral] 05/01/22 05/01/22 05/01/22 05:19 05:24 05:29 Temperature Pulse Rate 90 89 96 H Respiratory Rate Blood Pressure O2 Sat by Pulse 96 96 96 Oximetry O2 Sat by Pulse Oximetry [ Bilateral] 05/01/22 05/01/22 05/01/22 05:34 05:39 05:44 Temperature Pulse Rate 91 H 91 H 89 Respiratory Rate Blood Pressure O2 Sat by Pulse 97 96 97 Oximetry O2 Sat by Pulse Oximetry [ Bilateral] 05/01/22 05/01/22 05/01/22 05:49 05:54 05:59 Temperature Pulse Rate 92 H 86 82 Respiratory Rate Blood Pressure O2 Sat by Pulse 97 97 97 Oximetry O2 Sat by Pulse Oximetry [ Bilateral] 05/01/22 05/01/22 05/01/22 06:04 06:09 06:14 Temperature Pulse Rate 88 88 84 Respiratory Rate Blood Pressure O2 Sat by Pulse 97 96 97 Oximetry O2 Sat by Pulse Oximetry [ Bilateral] 05/01/22 05/01/22 05/01/22 06:19 06:24 06:29 Temperature Pulse Rate 88 85 93 H Respiratory Rate Blood Pressure O2 Sat by Pulse 96 97 98 Oximetry O2 Sat by Pulse Oximetry [ Bilateral] 05/01/22 05/01/22 05/01/22 06:34 06:39 06:44 Temperature Pulse Rate 93 H 91 H 91 H Respiratory Rate Blood Pressure O2 Sat by Pulse 97 97 97 Oximetry O2 Sat by Pulse Oximetry [ Bilateral] 05/01/22 05/01/22 05/01/22 06:49 06:54 06:59 Temperature Pulse Rate 87 90 85 Respiratory Rate Blood Pressure O2 Sat by Pulse 97 96 97 Oximetry O2 Sat by Pulse Oximetry [ Bilateral] 05/01/22 05/01/22 05/01/22 07:04 07:09 07:14 Temperature Pulse Rate 98 H 81 92 H Respiratory Rate Blood Pressure O2 Sat by Pulse 99 98 97 Oximetry O2 Sat by Pulse Oximetry [ Bilateral] 05/01/22 05/01/22 05/01/22 07:19 07:24 07:29 Temperature Pulse Rate 88 88 85 Respiratory Rate Blood Pressure O2 Sat by Pulse 97 97 97 Oximetry O2 Sat by Pulse Oximetry [ Bilateral] 05/01/22 05/01/22 05/01/22 07:34 07:39 07:44 Temperature Pulse Rate 90 89 86 Respiratory Rate Blood Pressure O2 Sat by Pulse 97 97 96 Oximetry O2 Sat by Pulse Oximetry [ Bilateral] 05/01/22 05/01/22 05/01/22 07:49 07:54 07:59 Temperature Pulse Rate 85 105 H 89 Respiratory Rate Blood Pressure O2 Sat by Pulse 97 97 96 Oximetry O2 Sat by Pulse Oximetry [ Bilateral] 05/01/22 05/01/22 05/01/22 08:04 08:06 08:09 Temperature Pulse Rate 90 99 H 96 H Respiratory Rate Blood Pressure O2 Sat by Pulse 96 94 98 Oximetry O2 Sat by Pulse Oximetry [ Bilateral] 05/01/22 05/01/22 05/01/22 08:14 08:19 08:24 Temperature Pulse Rate 92 H 93 H 94 H Respiratory Rate Blood Pressure O2 Sat by Pulse 98 98 99 Oximetry O2 Sat by Pulse Oximetry [ Bilateral] 05/01/22 05/01/22 05/01/22 08:25 08:29 08:33 Temperature Pulse Rate 111 H 93 H 85 Respiratory Rate Blood Pressure 108/66 O2 Sat by Pulse 93 97 Oximetry O2 Sat by Pulse Oximetry [ Bilateral] 05/01/22 05/01/22 05/01/22 08:34 08:35 08:51 Temperature 98 F Pulse Rate 89 Respiratory 18 Rate Blood Pressure O2 Sat by Pulse 99 100 Oximetry O2 Sat by Pulse 100 Oximetry [ Bilateral] - Exam Breasts: deferred Cardiovascular: Regular rate Lungs: Clear to auscultation, Normal air movement Abdomen: Present: soft Uterus: Present: tenderness (lower across abdomen, states mild pressure, no pain), fundal height above umbilicus, other (gravid) FHR: category 1 Uterine Contraction Monitor Mode: External Uterine Contraction Pattern: Absent Extremities: normal Deep Tendon Reflex Grade: Normal +2 - Labs Labs: Abnormal Labs 04/13/22 04/13/22 04/13/22 12:11 12:11 12:11 WBC RBC RDW Seg Neutrophils % Seg Neutrophils # APTT Sodium 136 L Carbon Dioxide Creatinine 0.3 L Glucose Magnesium 3.20 H 3.10 H Total Protein Albumin Triglycerides Cholesterol HDL Cholesterol Lipase Urine Creatinine Membranes Rupture 04/13/22 04/13/22 04/15/22 19:38 Unknown 06:29 WBC RBC RDW Seg Neutrophils % Seg Neutrophils # APTT 23.9 L Sodium Carbon Dioxide Creatinine Glucose Magnesium 3.10 H Total Protein Albumin Triglycerides Cholesterol HDL Cholesterol Lipase Urine Creatinine Membranes Rupture Positive A 04/15/22 04/17/22 04/17/22 06:29 12:44 12:44 WBC RBC 3.50 L RDW Seg Neutrophils % 78.8 H Seg Neutrophils # 8.4 H APTT Sodium Carbon Dioxide 20 L Creatinine 0.3 L 0.4 L Glucose 113 H Magnesium Total Protein 6.2 L 5.9 L Albumin 3.4 L 3.7 L Triglycerides 174 H Cholesterol 216 H HDL Cholesterol 108 H Lipase Urine Creatinine Membranes Rupture 04/17/22 04/19/22 04/20/22 15:35 18:40 Unknown WBC RBC RDW Seg Neutrophils % Seg Neutrophils # APTT Sodium Carbon Dioxide Creatinine Glucose Magnesium Total Protein Albumin Triglycerides Cholesterol HDL Cholesterol Lipase 65 H Urine Creatinine 27.2 H Membranes Rupture Positive A 04/22/22 10:01 WBC 11.6 H RBC RDW 15.3 H Seg Neutrophils % 78.1 H Seg Neutrophils # 9.1 H APTT Sodium Carbon Dioxide Creatinine Glucose Magnesium Total Protein Albumin Triglycerides Cholesterol HDL Cholesterol Lipase Urine Creatinine Membranes Rupture
[2022-05-02] MEDS: LOPERAMIDE 2 MG CAP PO PRN (08:45)
[2022-05-02] MEDS: FAMOTIDINE 20 MG TAB PO SCH (10:09)
[2022-05-02] MEDS: PRENATAL VIT27-FE FUMARATE-FOLIC ACID VIT TAB PO SCH (10:09)
[2022-05-02] MEDS ORDERED: oxyCODONE /ACETAMINOPHEN 5-325MG TAB PO ONE (17:56)
--- NOTE | 2022-05-02 20:57 | Event Note ---
Date: 05/02/22 S: Feeling a little pain in her side, not a contractions. O: Percocet 5mg po given about one hour go, no contractions on monitor. CBC ordered for today but was not done A: 32.3 weeks PPROM P: ZAY and BPP in am CBC in am
[2022-05-03] MEDS: ZOLPIDEM 5 MG TAB PO PRN (05:39)
[2022-05-03] MEDS: PRENATAL VIT27-FE FUMARATE-FOLIC ACID VIT TAB PO SCH (09:56)
[2022-05-03] MEDS: FAMOTIDINE 20 MG TAB PO SCH (09:58)
--- NOTE | 2022-05-03 10:50 | Ultrasound Report ---
ULTRASOUND OBSTETRIC LIMITED ULTRASOUND BIOPHYSICAL PROFILE INDICATION / CLINICAL INFORMATION: FWB. TECHNIQUE: Transabdominal. COMPARISON: Limited OB ultrasound with biophysical profile 04/27/2022. FINDINGS: BREATHING MOVEMENT = 2 GROSS BODY MOVEMENT = 2 TONE = 2 QUALITATIVE AMNIOTIC FLUID VOLUME = 2 TOTAL BIOPHYSICAL SCORE = 8/8 HEART RATE (beats per minute): 155 BPM AMNIOTIC FLUID INDEX (cm) = 7.7 cm, previously 7.9 cm. (normal = 7-24 cm) PRESENTATION: Cephalic. ADDITIONAL FINDINGS: None. IMPRESSION: 1. Biophysical Score = 8/8 2. ZAY measures 7.7 cm. Scribed by: Leonor Solorzano RDMS, PARMJIT, VANE Scribed: 05/03/2022 9:09 AM I have reviewed the images, agree with this report, and edited this report as needed. Signer Name: Micheal Martel MD Signed: 05/03/2022 10:46 AM Workstation Name: [id number]
[2022-05-03 16:02] LABS: Basophils % (Auto) 0.3 % (0.0-1.8); Eosinophils # (Auto) 0.1 K/mm3 (0.0-0.4); Eosinophils % (Auto) 0.6 % (0.0-4.3); Hematocrit 35.4 % (30.3-42.9); Hemoglobin 11.1 gm/dl (10.1-14.3); Lymphocytes # (Auto) 1.9 K/mm3 (1.2-5.4); Lymphocytes % (Auto) 19.5 % (13.4-35.0); Mean Corpuscular HGB Conc 31 % (30-34); Mean Corpuscular Volume 90 fl (79-97); Monocytes # (Auto) 0.5 K/mm3 (0.0-0.8); Monocytes % (Auto) 5.3 % (0.0-7.3); Platelet Count 207 K/mm3 (140-440); Red Blood Count 3.95 M/mm3 (3.65-5.03); Red Cell Distribution Width 15.2 % (13.2-15.2)
--- NOTE | 2022-05-03 19:26 | Progress Note ---
Assessment and Plan A: PPROM, CURRENTLY 32.5 WKS Leaking clear to light pink VSS Abdominal contractions P: Continue nursing care per unit protocol TOCO/EFM continuous while kamryn CBC ZAY/BPP today Subjective - Subjective Date of service: 05/03/22 (914) Principal diagnosis: PPROM,hepatic steatosis, 32.5 wks gestation today Patient reports: loss of fluid (some light pink tinge ), movement normal, no new complaints (ABDOMINAL PAIN) Objective - Vital Signs Vital Signs: Vital Signs - 12hr 05/03/22 05/03/22 05/03/22 10:00 10:04 10:07 Temperature Pulse Rate 104 H 100 H Respiratory Rate Blood Pressure 105/65 Blood Pressure [Left] Blood Pressure [Right] O2 Sat by Pulse 89 99 90 Oximetry O2 Sat by Pulse Oximetry [ Bilateral] 05/03/22 05/03/22 05/03/22 10:09 10:10 10:14 Temperature Pulse Rate 96 H 97 H Respiratory Rate Blood Pressure Blood Pressure [Left] Blood Pressure [Right] O2 Sat by Pulse 99 98 Oximetry O2 Sat by Pulse 100 Oximetry [ Bilateral] 05/03/22 05/03/22 05/03/22 10:17 10:19 10:24 Temperature 98.8 F Pulse Rate 94 H 59 L 184 H Respiratory 20 Rate Blood Pressure Blood Pressure [Left] Blood Pressure 105/65 [Right] O2 Sat by Pulse 98 74 L 79 L Oximetry O2 Sat by Pulse Oximetry [ Bilateral] 05/03/22 05/03/22 05/03/22 10:30 10:35 10:40 Temperature Pulse Rate Respiratory Rate Blood Pressure Blood Pressure [Left] Blood Pressure [Right] O2 Sat by Pulse 76 L 89 84 Oximetry O2 Sat by Pulse Oximetry [ Bilateral] 05/03/22 05/03/22 05/03/22 10:45 10:51 10:52 Temperature Pulse Rate 147 H Respiratory Rate Blood Pressure Blood Pressure [Left] Blood Pressure [Right] O2 Sat by Pulse 89 86 87 Oximetry O2 Sat by Pulse Oximetry [ Bilateral] 05/03/22 05/03/22 05/03/22 10:57 17:10 17:11 Temperature Pulse Rate Respiratory Rate Blood Pressure Blood Pressure [Left] Blood Pressure [Right] O2 Sat by Pulse 90 81 L 88 Oximetry O2 Sat by Pulse Oximetry [ Bilateral] 05/03/22 05/03/22 05/03/22 17:15 17:20 17:25 Temperature Pulse Rate 115 H 98 H 106 H Respiratory Rate Blood Pressure Blood Pressure [Left] Blood Pressure [Right] O2 Sat by Pulse 98 98 96 Oximetry O2 Sat by Pulse Oximetry [ Bilateral] 05/03/22 05/03/22 05/03/22 17:30 17:35 17:40 Temperature Pulse Rate 103 H 106 H 108 H Respiratory Rate Blood Pressure Blood Pressure [Left] Blood Pressure [Right] O2 Sat by Pulse 97 97 96 Oximetry O2 Sat by Pulse Oximetry [ Bilateral] 05/03/22 05/03/22 05/03/22 17:45 17:50 17:55 Temperature Pulse Rate 100 H 103 H 109 H Respiratory Rate Blood Pressure Blood Pressure [Left] Blood Pressure [Right] O2 Sat by Pulse 96 97 96 Oximetry O2 Sat by Pulse Oximetry [ Bilateral] 05/03/22 05/03/22 05/03/22 18:00 18:05 18:10 Temperature Pulse Rate 96 H 102 H 101 H Respiratory Rate Blood Pressure Blood Pressure [Left] Blood Pressure [Right] O2 Sat by Pulse 96 97 97 Oximetry O2 Sat by Pulse Oximetry [ Bilateral] 05/03/22 05/03/22 05/03/22 18:15 18:20 18:24 Temperature Pulse Rate 96 H 99 H 96 H Respiratory Rate Blood Pressure 108/59 Blood Pressure [Left] Blood Pressure [Right] O2 Sat by Pulse 98 98 Oximetry O2 Sat by Pulse Oximetry [ Bilateral] 05/03/22 05/03/22 05/03/22 18:25 18:28 18:30 Temperature 98 F Pulse Rate 99 H 96 H 103 H Respiratory 16 Rate Blood Pressure Blood Pressure 108/59 [Left] Blood Pressure [Right] O2 Sat by Pulse 99 99 Oximetry O2 Sat by Pulse Oximetry [ Bilateral] 05/03/22 05/03/22 05/03/22 18:35 18:40 18:45 Temperature Pulse Rate 100 H 101 H 107 H Respiratory Rate Blood Pressure Blood Pressure [Left] Blood Pressure [Right] O2 Sat by Pulse 98 99 95 Oximetry O2 Sat by Pulse Oximetry [ Bilateral] 05/03/22 05/03/22 05/03/22 18:50 18:55 18:56 Temperature Pulse Rate 99 H 102 H Respiratory Rate Blood Pressure Blood Pressure [Left] Blood Pressure [Right] O2 Sat by Pulse 100 73 L 100 Oximetry O2 Sat by Pulse Oximetry [ Bilateral] 05/03/22 19:01 Temperature Pulse Rate 107 H Respiratory Rate Blood Pressure Blood Pressure [Left] Blood Pressure [Right] O2 Sat by Pulse 95 Oximetry O2 Sat by Pulse Oximetry [ Bilateral] - Exam Breasts: deferred Cardiovascular: Regular rate Lungs: Clear to auscultation, Normal air movement Abdomen: Present: normal appearance, soft Uterus: Present: tenderness, fundal height above umbilicus Extremities: normal Deep Tendon Reflex Grade: Normal +2 - Labs Labs: Abnormal Labs 04/13/22 04/13/22 04/13/22 12:11 12:11 12:11 WBC RBC RDW Seg Neutrophils % Seg Neutrophils # APTT Sodium 136 L Carbon Dioxide Creatinine 0.3 L Glucose Magnesium 3.20 H 3.10 H Total Protein Albumin Triglycerides Cholesterol HDL Cholesterol Lipase Urine Creatinine Membranes Rupture 04/13/22 04/13/22 04/15/22 19:38 Unknown 06:29 WBC RBC RDW Seg Neutrophils % Seg Neutrophils # APTT 23.9 L Sodium Carbon Dioxide Creatinine Glucose Magnesium 3.10 H Total Protein Albumin Triglycerides Cholesterol HDL Cholesterol Lipase Urine Creatinine Membranes Rupture Positive A 04/15/22 04/17/22 04/17/22 06:29 12:44 12:44 WBC RBC 3.50 L RDW Seg Neutrophils % 78.8 H Seg Neutrophils # 8.4 H APTT Sodium Carbon Dioxide 20 L Creatinine 0.3 L 0.4 L Glucose 113 H Magnesium Total Protein 6.2 L 5.9 L Albumin 3.4 L 3.7 L Triglycerides 174 H Cholesterol 216 H HDL Cholesterol 108 H Lipase Urine Creatinine Membranes Rupture 04/17/22 04/19/22 04/20/22 15:35 18:40 Unknown WBC RBC RDW Seg Neutrophils % Seg Neutrophils # APTT Sodium Carbon Dioxide Creatinine Glucose Magnesium Total Protein Albumin Triglycerides Cholesterol HDL Cholesterol Lipase 65 H Urine Creatinine 27.2 H Membranes Rupture Positive A 04/22/22 05/03/22 10:01 07:16 WBC 11.6 H RBC RDW 15.3 H Seg Neutrophils % 78.1 H 74.3 H Seg Neutrophils # 9.1 H APTT Sodium Carbon Dioxide Creatinine Glucose Magnesium Total Protein Albumin Triglycerides Cholesterol HDL Cholesterol Lipase Urine Creatinine Membranes Rupture Laboratory Results - last 24 hr 05/03/22 07:16 WBC 10.0 RBC 3.95 Hgb 11.1 Hct 35.4 MCV 90 MCH 28 MCHC 31 RDW 15.2 Plt Count 207 Lymph % (Auto) 19.5 [place] % (Auto) 5.3 Eos % (Auto) 0.6 Baso % (Auto) 0.3 Lymph # (Auto) 1.9 [place] # (Auto) 0.5 Eos # (Auto) 0.1 Baso # (Auto) 0.0 Seg Neutrophils % 74.3 H Seg Neutrophils # 7.4
--- NOTE | 2022-05-03 19:34 | Event Note ---
Date: 05/03/22 Pt was given Ambien this morning, she had difficulty sleeping last night. Pt states feeling better, no contractions noted on strip this morning, Cat 1 no contractions. bpp 8/8, ZAY 7.7 from 7.9 and WBC 10.0.
[2022-05-04] MEDS: SIMETHICONE 80 MG CHEW TAB PO PRN (10:10)
[2022-05-04] MEDS: FAMOTIDINE 20 MG TAB PO SCH (10:10)
[2022-05-04] MEDS: PRENATAL VIT27-FE FUMARATE-FOLIC ACID VIT TAB PO SCH (10:11)
--- NOTE | 2022-05-04 18:16 | Progress Note ---
Assessment and Plan IMPRESSIONS: 1. IUP 32w6d 2. SROM with residual ZAY 7.7 by USG yesterday 3. Having recent increased uterine activity q 8 min- reported no change in her cervix 4. S/P BMZ 5. Normal LFTs, in setting of fatty liver concerns RECOMMENDATIONS: 1. I would not aggressively tocolyze with PTL due to the risk of chorio 2. CBC to evaluate WBCs 3. GI to address any fatty liver concerns Subjective - Subjective Date of service: 05/04/22 Principal diagnosis: PPROM,hepatic steatosis, 32.5 wks gestation today Patient reports: loss of fluid (some light pink tinge ), movement normal, contractions, other (Abdominal pain), no new complaints (ABDOMINAL PAIN) Objective - Vital Signs Vital Signs: Vital Signs - 12hr 05/04/22 05/04/22 05/04/22 08:00 08:01 08:06 Pulse Rate 85 89 Blood Pressure 110/68 O2 Sat by Pulse 100 99 Oximetry O2 Sat by Pulse 91 Oximetry [ Bilateral] 05/04/22 05/04/22 05/04/22 08:11 08:16 08:21 Pulse Rate 91 H 87 86 Blood Pressure O2 Sat by Pulse 97 98 99 Oximetry O2 Sat by Pulse Oximetry [ Bilateral] 05/04/22 05/04/22 05/04/22 08:26 08:31 08:36 Pulse Rate 97 H 89 88 Blood Pressure O2 Sat by Pulse 99 98 98 Oximetry O2 Sat by Pulse Oximetry [ Bilateral] 05/04/22 05/04/22 05/04/22 08:41 08:46 08:51 Pulse Rate 89 93 H 93 H Blood Pressure O2 Sat by Pulse 99 98 97 Oximetry O2 Sat by Pulse Oximetry [ Bilateral] 05/04/22 05/04/22 05/04/22 08:56 09:01 09:06 Pulse Rate 97 H 93 H 104 H Blood Pressure O2 Sat by Pulse 98 98 97 Oximetry O2 Sat by Pulse Oximetry [ Bilateral] 05/04/22 05/04/22 05/04/22 09:11 09:16 09:21 Pulse Rate 106 H 101 H 87 Blood Pressure O2 Sat by Pulse 97 97 96 Oximetry O2 Sat by Pulse Oximetry [ Bilateral] 05/04/22 05/04/22 05/04/22 09:26 09:31 09:36 Pulse Rate 104 H 91 H 101 H Blood Pressure O2 Sat by Pulse 98 100 99 Oximetry O2 Sat by Pulse Oximetry [ Bilateral] 05/04/22 05/04/22 05/04/22 09:41 09:46 09:51 Pulse Rate 93 H 103 H 103 H Blood Pressure O2 Sat by Pulse 97 96 95 Oximetry O2 Sat by Pulse Oximetry [ Bilateral] 05/04/22 05/04/22 05/04/22 09:56 09:59 10:01 Pulse Rate 100 H 92 H 91 H Blood Pressure O2 Sat by Pulse 98 94 96 Oximetry O2 Sat by Pulse Oximetry [ Bilateral] 05/04/22 05/04/22 05/04/22 10:06 10:11 10:16 Pulse Rate 90 96 H 95 H Blood Pressure O2 Sat by Pulse 96 96 97 Oximetry O2 Sat by Pulse Oximetry [ Bilateral] 05/04/22 05/04/22 05/04/22 10:21 10:26 10:31 Pulse Rate 93 H 89 90 Blood Pressure O2 Sat by Pulse 98 97 96 Oximetry O2 Sat by Pulse Oximetry [ Bilateral] 05/04/22 05/04/22 05/04/22 10:36 10:41 10:46 Pulse Rate 91 H 93 H 87 Blood Pressure O2 Sat by Pulse 96 95 95 Oximetry O2 Sat by Pulse Oximetry [ Bilateral] 05/04/22 05/04/22 05/04/22 10:51 10:56 11:01 Pulse Rate 87 86 94 H Blood Pressure O2 Sat by Pulse 95 95 95 Oximetry O2 Sat by Pulse Oximetry [ Bilateral] 05/04/22 05/04/22 05/04/22 11:06 11:08 11:11 Pulse Rate 89 91 H 89 Blood Pressure O2 Sat by Pulse 96 94 94 Oximetry O2 Sat by Pulse Oximetry [ Bilateral] 05/04/22 05/04/22 05/04/22 11:14 11:16 11:21 Pulse Rate 89 91 H 88 Blood Pressure O2 Sat by Pulse 94 94 95 Oximetry O2 Sat by Pulse Oximetry [ Bilateral] 05/04/22 05/04/22 05/04/22 11:22 11:26 11:31 Pulse Rate 88 90 89 Blood Pressure O2 Sat by Pulse 94 94 94 Oximetry O2 Sat by Pulse Oximetry [ Bilateral] 05/04/22 05/04/22 05/04/22 11:33 11:36 11:39 Pulse Rate 89 92 H 86 Blood Pressure O2 Sat by Pulse 94 94 94 Oximetry O2 Sat by Pulse Oximetry [ Bilateral] 05/04/22 05/04/22 05/04/22 11:41 11:44 11:46 Pulse Rate 98 H 100 H 101 H Blood Pressure O2 Sat by Pulse 94 94 94 Oximetry O2 Sat by Pulse Oximetry [ Bilateral] 05/04/22 05/04/22 05/04/22 11:50 11:51 11:55 Pulse Rate 94 H 96 H 103 H Blood Pressure O2 Sat by Pulse 93 96 94 Oximetry O2 Sat by Pulse Oximetry [ Bilateral] 05/04/22 05/04/22 05/04/22 11:56 12:01 12:02 Pulse Rate 105 H 98 H 103 H Blood Pressure O2 Sat by Pulse 91 96 94 Oximetry O2 Sat by Pulse Oximetry [ Bilateral] 05/04/22 05/04/22 05/04/22 16:43 16:45 16:49 Pulse Rate 135 H 109 H Blood Pressure O2 Sat by Pulse 100 80 L 98 Oximetry O2 Sat by Pulse Oximetry [ Bilateral] 05/04/22 05/04/22 05/04/22 16:54 16:59 17:04 Pulse Rate 118 H 96 H 94 H Blood Pressure O2 Sat by Pulse 100 99 100 Oximetry O2 Sat by Pulse Oximetry [ Bilateral] 05/04/22 05/04/22 05/04/22 17:09 17:14 17:19 Pulse Rate 109 H 104 H 102 H Blood Pressure O2 Sat by Pulse 100 97 98 Oximetry O2 Sat by Pulse Oximetry [ Bilateral] 05/04/22 05/04/22 05/04/22 17:24 17:29 17:34 Pulse Rate 98 H 102 H 103 H Blood Pressure O2 Sat by Pulse 96 99 97 Oximetry O2 Sat by Pulse Oximetry [ Bilateral] 05/04/22 05/04/22 05/04/22 17:39 17:44 17:49 Pulse Rate 105 H 100 H 107 H Blood Pressure O2 Sat by Pulse 97 98 98 Oximetry O2 Sat by Pulse Oximetry [ Bilateral] 05/04/22 05/04/22 05/04/22 17:54 17:59 18:04 Pulse Rate 110 H 109 H 107 H Blood Pressure O2 Sat by Pulse 100 98 97 Oximetry O2 Sat by Pulse Oximetry [ Bilateral] - Exam Abdomen: Present: soft, tenderness FHR: category 1 Uterine Contraction Frequency (min): irregular Uterine Contraction Pattern: Irregular - Labs Labs: Abnormal Labs 04/13/22 04/13/22 04/13/22 12:11 12:11 12:11 WBC RBC RDW Seg Neutrophils % Seg Neutrophils # APTT Sodium 136 L Carbon Dioxide Creatinine 0.3 L Glucose Magnesium 3.20 H 3.10 H Total Protein Albumin Triglycerides Cholesterol HDL Cholesterol Lipase Urine Creatinine Membranes Rupture 04/13/22 04/13/22 04/15/22 19:38 Unknown 06:29 WBC RBC RDW Seg Neutrophils % Seg Neutrophils # APTT 23.9 L Sodium Carbon Dioxide Creatinine Glucose Magnesium 3.10 H Total Protein Albumin Triglycerides Cholesterol HDL Cholesterol Lipase Urine Creatinine Membranes Rupture Positive A 04/15/22 04/17/22 04/17/22 06:29 12:44 12:44 WBC RBC 3.50 L RDW Seg Neutrophils % 78.8 H Seg Neutrophils # 8.4 H APTT Sodium Carbon Dioxide 20 L Creatinine 0.3 L 0.4 L Glucose 113 H Magnesium Total Protein 6.2 L 5.9 L Albumin 3.4 L 3.7 L Triglycerides 174 H Cholesterol 216 H HDL Cholesterol 108 H Lipase Urine Creatinine Membranes Rupture 04/17/22 04/19/22 04/20/22 15:35 18:40 Unknown WBC RBC RDW Seg Neutrophils % Seg Neutrophils # APTT Sodium Carbon Dioxide Creatinine Glucose Magnesium Total Protein Albumin Triglycerides Cholesterol HDL Cholesterol Lipase 65 H Urine Creatinine 27.2 H Membranes Rupture Positive A 04/22/22 05/03/22 10:01 07:16 WBC 11.6 H RBC RDW 15.3 H Seg Neutrophils % 78.1 H 74.3 H Seg Neutrophils # 9.1 H APTT Sodium Carbon Dioxide Creatinine Glucose Magnesium Total Protein Albumin Triglycerides Cholesterol HDL Cholesterol Lipase Urine Creatinine Membranes Rupture
--- NOTE | 2022-05-04 18:44 | Event Note ---
Date: 05/04/22 S: C/O feeling contractions earlier this am and this afternoon O: CAT I tracing, Contractions every 9-10 min A: 32.5 week gestation, PPROM P: Expectant management S/P and DARI
[2022-05-04] MEDS ORDERED: CARBOPROST TROMETHAMINE 250 MCG/1 ML INJ IM PRN (20:00)
[2022-05-04] MEDS ORDERED: LOPERAMIDE 2 MG CAP PO PRN (20:00)
[2022-05-04] MEDS ORDERED: TERBUTALINE 1 MG/1 ML INJ SUB-Q PRN (20:00)
[2022-05-04] MEDS ORDERED: OXYTOCIN 10 UNIT/1 ML INJ IM PRN (20:00)
[2022-05-04] MEDS ORDERED: ePHEDrine SULFATE 50 MG/1 ML INJ IV PRN (20:00)
[2022-05-04] MEDS ORDERED: OXYTOCIN DRIP 30 UNITS/500 ML BAG IV SCH ×2 (20:00)
[2022-05-04] MEDS ORDERED: LIDOCAINE (2%) 20 MG/1 ML VIAL 20 ML MDV INFILTRATI ONE (20:00)
[2022-05-04] MEDS ORDERED: miSOPROStol 200 MCG TAB PR PRN (20:00)
[2022-05-04] MEDS ORDERED: BUTORPHANOL 2 MG/1 ML INJ IV PRN (20:00)
[2022-05-04] MEDS ORDERED: METHYLERGONOVINE MALEATE 0.2 MG/ML VIAL IM PRN (20:00)
[2022-05-04] MEDS ORDERED: MINERAL OIL 30 ML ORAL LIQD PO PRN (20:00)
[2022-05-04] MEDS ORDERED: LACTATED RINGERS 1,000 ML IV SCH (20:00)
[2022-05-04 20:23] LABS: Basophils # (Auto) 0.1 K/mm3 (0.0-0.1); Basophils % (Auto) 0.5 % (0.0-1.8); Eosinophils % (Auto) 0.1 % (0.0-4.3); Hematocrit 34.2 % (30.3-42.9); Hemoglobin 11.1 gm/dl (10.1-14.3); Lymphocytes # (Auto) 1.7 K/mm3 (1.2-5.4); Lymphocytes % (Auto) 9.1 % (13.4-35.0); Mean Corpuscular HGB Conc 33 % (30-34); Mean Corpuscular Volume 88 fl (79-97); Monocytes # (Auto) 1.1 K/mm3 (0.0-0.8); Platelet Count 206 K/mm3 (140-440); Red Cell Distribution Width 15.2 % (13.2-15.2)
[2022-05-04] MEDS: BUTORPHANOL 2 MG/1 ML INJ IV PRN (20:28)
[2022-05-04 20:51] LABS: Alanine Aminotransferase 17 units/L (7-56); Albumin 3.6 g/dL (3.9-5); Blood Urea Nitrogen 6 mg/dL (7-17); Calcium 9.7 mg/dL (8.4-10.2); Hemolysis Index 16
[2022-05-04 20:52] LABS: BUN/Creatinine Ratio 20; Bilirubin,Direct < 0.2 mg/dL (0-0.2)
[2022-05-04 21:01] LABS: Hematocrit 35.5 % (30.3-42.9); Hemoglobin 11.3 gm/dl (10.1-14.3); Mean Corpuscular HGB Conc 32 % (30-34); Mean Corpuscular Volume 90 fl (79-97); Platelet Count 196 K/mm3 (140-440); Red Blood Count 3.93 M/mm3 (3.65-5.03); Red Cell Distribution Width 15.4 % (13.2-15.2)
[2022-05-05] MEDS: BUTORPHANOL 2 MG/1 ML INJ IV PRN (00:16)
[2022-05-05] MEDS ORDERED: LIDOCAINE (2%) 20 MG/1 ML VIAL 20 ML MDV INFILTRATI ONE (02:15)
--- NOTE | 2022-05-05 02:45 | Anesthesia Consultation ---
Anesthesia Consult and Med Hx Date of service: 05/05/22 - Airway Anesthetic Teeth Evaluation: Good ROM Head & Neck: Adequate Mental/Hyoid Distance: Adequate Mallampati Class: Class II Intubation Access Assessment: Good - Pulmonary Exam CTA: Yes - Cardiac Exam Cardiac Exam: RRR - Pre-Operative Health Status ASA Pre-Surgery Classification: ASA1 Proposed Anesthetic Plan: Spinal - Pulmonary Hx Asthma: No COPD: No Hx Pneumonia: No - Cardiovascular System Hx Hypertension: Yes - Central Nervous System Hx Seizures: No Hx Psychiatric Problems: No - Endocrine Hx Renal Disease: No Hx End Stage Renal Disease: No Hx Hypothyroidism: No Hx Hyperthyroidism: No - Hematic Hx Anemia: No Hx Sickle Cell Disease: No - Other Systems Hx Alcohol Use: No
[2022-05-05] MEDS ORDERED: ePHEDrine SULFATE 50 MG/1 ML INJ IV PRN (02:46)
--- NOTE | 2022-05-05 02:49 | Progress Note ---
Spinal Anesthesia Block - Spinal Anesthesia Block Start Time: 02:33 Stop Time: 02:36 Performed by:: MEERA JEFFERY Procedure: Spinal anesthesia block is being performed for []. H&P, labs have been reviewed. Patient's questions and concerns have been answered. Informed consent has been performed. Timeout has was performed. Patient in sitting position on side of bed. Sterile prep and drape was performed. 3 mL 1% lidocaine skin wheal at L [3]-L [4]. Needle introducer advanced. 24-gauge spinal needle advanced, [+] CSF [-] blood. [] Spinal dose was given. All needles removed. Patient tolerated procedure well.
[2022-05-05] MEDS: LOPERAMIDE 2 MG CAP PO PRN (04:41)
[2022-05-05] MEDS ORDERED: ACETAMINOPHEN 325 MG TAB PO PRN (05:08)
[2022-05-05] MEDS ORDERED: BENZOCAINE/MENTHOL 20/0.5% TOP SPRAY 56 GM TP PRN (05:08)
[2022-05-05] MEDS ORDERED: WITCH HAZEL/ GLYCERIN PAD TP PRN (05:08)
[2022-05-05] MEDS ORDERED: MAGNESIUM HYDROXIDE (MOM) ORAL LIQD UDC PO PRN (05:08)
[2022-05-05] MEDS ORDERED: HYDROcodone/ACETAMINOPHEN 5-325 MG TAB PO PRN (05:08)
[2022-05-05] MEDS ORDERED: LANOLIN/ZINC/DIMETHICONE (LANSINOH) 7 GM TP PRN (05:08)
--- NOTE | 2022-05-05 05:13 | Procedure Note ---
OB Delivery Note - Delivery Date of Delivery: 05/05/22 Surgeon: YARI DEL ANGEL - Vaginal Delivery presentation: vertex Delivery position: OA Intrapartum events: labor-<37 weeks, PROM->1hr before delivery, other(please specify) (1.) 33-1/7 weeks. 2.) PPPROM.) Delivery induction: none Delivery augmentation: pitocin Delivery monitor: external FHT, external uterine, internal uterine Route of delivery: Delivery placenta: other (After delivery, the placenta did not expel spontaneously. It was unable to be removed manually as the patient had inadequate pain control despite one-shot spinal anesthesia. Medical methods of expelling the placenta (i.e. Hemabate and Cytotec) will be attempted.) Delivery cord: 3 umbilical vessels Episiotomy: none Delivery laceration: other (Left periurethral laceration) Delivery repair: vicryl Anesthesia: local (Lidocaine 1% 10 mL injected locally), other (Spinal) Delivery comments: The patient is a 36-year-old at 33-1/7 weeks gestation who has been admitted to the antepartum unit for the past 3 weeks after being diagnosed with prolonged premature rupture of membranes at 30 weeks gestation. The patient was given intravenous gentamicin and intravenous clindamycin for 48 hours followed by oral clindamycin x5 days in an effort to prolong the latency period. Upon admission the patient received a course of glucocorticoids to promote lung maturity. The patient also received 24 hours of intravenous magnesium for neuroprotection. Today, the patient began having contractions every 6 minutes. The patient progressed from 3 cm dilated to complete cervical dilation. The patient received spinal anesthesia. Thereafter, Pitocin was administered intravenously for augmentation. The patient produced a liveborn male . Mouth and nose were bulb suctioned when the was on the maternal chest. Delayed cord clamping was performed. The umbilical cord was cut by the father of the baby. The was handed off to the awaiting NICU team. The patient had a left. 3 lacerations that was repaired with 3-0 Vicryl in a running fashion with excellent hemostasis. - Infant A at 1 minute: 8 at 5 minutes: 9 Infant Gender: Male (Weight= 1,970 g)
[2022-05-05] MEDS: CARBOPROST TROMETHAMINE 250 MCG/1 ML INJ IM PRN ×2 (05:30→06:56)
[2022-05-05] MEDS ORDERED: OXYTOCIN DRIP 30,000 MILLIUNITS/500 ML BAG IV ONE ×2 (05:31→11:04)
[2022-05-05] MEDS: miSOPROStol 200 MCG TAB PO SCH ×3 (07:29→12:40)
[2022-05-05] MEDS: IBUPROFEN 800 MG TAB PO SCH ×2 (07:30→21:20)
[2022-05-05] MEDS ORDERED: MORPHINE 2 MG/1 ML INJ IV PRN (08:00)
[2022-05-05] MEDS: FAMOTIDINE 20 MG/2 ML INJ IV SCH ×3 (08:00→21:20)
[2022-05-05] MEDS: LACTATED RINGERS 1,000 ML IV SCH ×2 (08:27→18:17)
[2022-05-05] MEDS ORDERED: ONDANSETRON 4 MG/2 ML INJ IV PRN (08:30)
--- NOTE | 2022-05-05 08:51 | Ultrasound Report ---
ULTRASOUND PELVIC LIMITED HISTORY: Retained placenta, suspect abnormal uterine anatomy. Patient gave about 3 hours ago an d cord came unattached from placenta during . Placenta has not, yet. TECHNIQUE: Transabdominal ultrasound with color Doppler imaging. COMPARISON: 05/03/2022. FINDINGS: Enlarged uterus is present measuring 21 x 10 x 12 cm. The uterus is diffusely he terogeneous but no discrete myometrial mass. The endometrium is markedly thickened measuring up to 7 cm which presumably represents retained placenta. There is trace blood flow within the placenta on co reji Doppler imaging. There also appears to be heterogeneous tissue or debris in the lower uterine seg ment or endocervical canal measuring up to 3.9 cm in thickness. No obvious congenital uterine abnorma lity is detected on ultrasound. The ovaries are not visualized. IMPRESSION: Thickened and complex endometrium as described consistent with suspected history of retai mila placenta. Signer Name: Neo Myers Jr, MD Signed: 05/05/2022 8:46 AM Workstation Name: [id number]
[2022-05-05] MEDS ORDERED: PROMETHAZINE 12.5 MG RECT SUPP PR PRN (09:00)
[2022-05-05] MEDS: DOCUSATE SODIUM 100 MG CAP PO SCH ×2 (10:00→21:20)
[2022-05-05] MEDS: PRENATAL VIT27-FE FUMARATE-FOLIC ACID VIT TAB PO SCH (10:00)
[2022-05-05] MEDS ORDERED: BUTORPHANOL 2 MG/1 ML INJ ONE (11:00)
--- NOTE | 2022-05-05 11:31 | Event Note ---
Date: 05/05/22 S: Patient having fevers/chills/shakes/diarrhea O: PO TEMP: 102.8 A: Retained Placenta P: Patient on bedpan with Diarrhea; observed placenta fragments in bedpan Upon uterine exploration; large sections of placental tissue palpated and removed manually from lower uterine segment. Placenta tissue is not intact, soft, with a "cottage cheese" texture. Given Stadol 1mg IV. Uterine exploration with placenta tissue removed x 4; placental tissue still palpated in the right fundal area of uterus. Dr. Agee consulted: Plans D&C in main OR ABX Clindamycin 900mg IV Gentamicin 5mg/kg IV
[2022-05-05] MEDS ORDERED: BUTORPHANOL 2 MG/1 ML INJ IV ONE (12:00)
[2022-05-05] MEDS: GENTAMICIN 350 MG in SODIUM CHLORIDE 0.9% 100 ML IV SCH (12:23)
[2022-05-05] MEDS ORDERED: SUCCINYLCHOLINE CHLORIDE 200 MG/10 ML INJ MDV ONE (13:36)
[2022-05-05] MEDS ORDERED: propofoL 200 MG/20 ML VIAL IV ONE ×2 (13:36→14:14)
[2022-05-05] MEDS ORDERED: LIDOCAINE MPF (2%) 20 MG/1 ML VIAL 5 ML ONE (13:36)
[2022-05-05] MEDS ORDERED: SCOPOLAMINE TRANSDERMAL PATCH 72 HR TD ONE (13:42)
[2022-05-05] MEDS ORDERED: fentaNYL 100 MCG/2 ML INJ ONE ×2 (13:43→14:14)
[2022-05-05] MEDS ORDERED: PHENYLEPHRINE/NS 1,000 MCG/10 ML SYRINGE (OR USE) IV ONE (14:09)
[2022-05-05] MEDS ORDERED: dexAMETHasone 20 MG/5 ML VIAL ONE (14:09)
[2022-05-05] MEDS ORDERED: ONDANSETRON 4 MG/2 ML INJ ONE ×2 (14:09→14:43)
[2022-05-05] MEDS ORDERED: SODIUM CHLORIDE 0.9% IRR 1,500 ML BOTTLE IR ONE (14:20)
--- NOTE | 2022-05-05 14:41 | Operative Report ---
Operative Report Operative Report: PREOPERATIVE DIAGNOSIS: Retained placenta. POSTOPERATIVE DIAGNOSIS: 1.) Retained placenta. 2.) Unicornuate uterus, suspected. PROCEDURE PERFORMED: Suction, dilation, and curettage under real-time ultrasound guidance. ANESTHESIA: General. FLUIDS: 600 mL Lacted Ringer's ESTIMATED BLOOD LOSS: 150 mL. URINE OUTPUT: 600 mL. COMPLICATIONS: None. PATHOLOGY: Placenta sent for pathologic examination. DISPOSITION: To PACU and then Room 2137 on the unit. FINDINGS: Products of conception consistent with a 6-week intrauterine . INDICATIONS: The patient is a 36-year-old at 33-1/7 weeks gesation that was diagnosed with PPPROM 3 weeks ago and admitted to the antepartum unit for expectant management after receiving antibiotics to prolong latency. She went into labor and delivered a liveborn male . After delivery, the placenta did not expel spontaneously. It was unable to be removed manually as the patient had inadequate pain control despite one-shot spinal anesthesia. Medical methods of expelling the placenta (i.e. Hemabate and Cytotec) were also unsuccessful. Bedside sonogram was performed by wv which was suspicious for a uterine anomoly, namely a unicornuate uterus vs. bicornuate uterus. This bedside sonogram also confirmed a retained placenta on the right "horn". These findings were discussed with the patient and surgical management via suction dilation and curettage was discussed with the patient. After discussion of this options, the patient opted for a suction, dilation, and curettage. The patient was described to the patient in detail including risks of infection, bleeding, injury to surrounding organs including risk of perforation. Informed consent was obtained prior to proceeding with the procedure. PROCEDURE NOTE: The patient was taken to the operating room where spinal anesthesia was administered without difficulty. The patient was prepped and draped in usual sterile fashion in lithotomy position. A self-retaining speculum was placed in the vagina. The anterior lip of the cervix was grasped with the ring forceps. The cervix was already dilated. Real-time transabdominal sonogr aphy was performed by simultaneously which revealed retained placenta in the right uterine horn. At this time under real-time sonography, a 14-mm suction curettage was advanced into the uterine cavity and deflected to the right without difficulty and was used to attempt suction of contents of the uterus. This was challenging as the material was reluctant to move significantly. Thereafter, the suction curette was removed and manual exploration of the right uterine horn was performed. A portion of the placenta was grasped. It felt densely adherant, but not consistent with placenta accreta spectrum. The placenta was gently dissected of the endometrium with the fingers under real- time sonography with great care. Then, the placenta was manually extracted. Following removal of the placenta, a sharp curette was advanced into the uterine cavity and was used to scrape the four das of the uterus until a gritty texture was noted. At this time, the 14-mm suction curette was advanced one additional time to suction any remaining products. All instruments were removed. Hemostasis was visualized. The patient was stable at the completion of the procedure. Sponge, lap, and instrument counts were correct.
[2022-05-05] MEDS ORDERED: KETOROLAC 30 MG/1 ML INJ ONE (14:43)
--- NOTE | 2022-05-05 16:55 | Post Anesthesia Evaluation ---
- Post Anesthesia Evaluation Patient Participated: Yes Airway Patent: Yes Stable Respiratory Function: Yes Nausea/Vomiting: No Temp > 96.8F: Yes Pain Manageable: Yes Adequeate Hydration: Yes Anesthesia Complications: No Block Receding Appropriately: Not Applicable Patient on Ventilator: No
[2022-05-06] MEDS: IBUPROFEN 800 MG TAB PO SCH ×3 (03:30→18:10)
[2022-05-06] MEDS: DOCUSATE SODIUM 100 MG CAP PO SCH (10:22)
[2022-05-06] MEDS: PRENATAL VIT27-FE FUMARATE-FOLIC ACID VIT TAB PO SCH (10:32)
[2022-05-06] MEDS ORDERED: SODIUM CHLORIDE 0.9% 500 ML 500 ML IV SCH (11:00)
[2022-05-06] MEDS: GENTAMICIN 350 MG in SODIUM CHLORIDE 0.9% 100 ML IV SCH (13:22)
--- NOTE | 2022-05-06 14:35 | Ultrasound Report ---
ULTRASOUND PELVIS INDICATION / CLINICAL INFORMATION: Unicornuate uterus, S/P Surgial removal of Placen. TECHNIQUE: Transabdominal and Transvaginal. Duplex Color Doppler used: Yes. COMPARISON: Pelvic ultrasound performed yesterday. FINDINGS: UTERUS: - Appearance: No significant abnormality. - Size (cm): 15.8 x 8.8 x 8.1 cm. - Endometrial Complex (if present): The endometrium is diffusely heterogeneous with small amount of a ir noted likely related to recent surgical intervention. No evidence of retained products. Thickness in cm (if measured) = 1.0 cm. - Mass or cyst: None. - Additional findings: None. RIGHT ADNEXA: The right ovary is not visualized. No significant adnexal abnormality. LEFT ADNEXA: The left ovary is not visualized. No significant adnexal abnormality. URINARY BLADDER: No significant abnormality. FREE FLUID: None. ADDITIONAL FINDINGS: None. IMPRESSION: 1. Diffusely heterogeneous appearance of the endometrium with a small amount of air noted internally likely related to recent surgical intervention. No evidence of retained products. 2. Possible unicornuate morphology of the uterus. 3. Nonvisualization of the ovaries. Scribed by: Leonor Solorzano RDMS, TACOST, VANE Scribed: 05/06/2022 9:48 AM I have reviewed the images, agree with this report, and edited this report as needed. Signer Name: Adrián Sánchez MD Signed: 05/06/2022 2:30 PM Workstation Name: [id number]
[2022-05-06] MEDS: FAMOTIDINE 20 MG/2 ML INJ IV SCH (15:34)
[2022-05-06 16:33] LABS: Hematocrit 22.9 % (30.3-42.9); Hemoglobin 7.4 gm/dl (10.1-14.3); Mean Corpuscular HGB Conc 32 % (30-34); Mean Corpuscular Volume 88 fl (79-97); Platelet Count 194 K/mm3 (140-440); Red Blood Count 2.61 M/mm3 (3.65-5.03); Red Cell Distribution Width 15.3 % (13.2-15.2)
[2022-05-06 17:50] LABS: Basophils % (Manual) 0 % (0.0-1.8); Eosinophils % (Manual) 0 % (0.0-4.3); Platelet Estimate Consistent w Auto; RBC Morphology Normal; Total Cells Counted 100
--- NOTE | 2022-05-06 19:10 | Progress Note ---
Assessment and Plan O: Afebrile for 24 hrs A: PPD and POD #1 - stable P: Antibiotics to be discontinued after next doses Plan discharge home in am Subjective - Subjective Principal diagnosis: , S/P D&C Patient reports: appetite normal : in NICU Objective - Vital Signs Latest vital signs: Vital Signs Temp Pulse Resp BP BP Pulse Ox Pulse Ox 05/06/22 15:35 98.1 F 98 H 18 87/36 95 05/06/22 08:43 98 05/06/22 08:00 98.8 F 91 H 18 94/30 92 05/05/22 23:49 98 05/05/22 23:33 98.3 F 92 H 20 100/53 99 Intake and Output 05/06/22 05/06/22 05/06/22 06:59 14:59 22:59 Intake Total 410 360 360 Output Total 600 Balance -190 360 360 Intake: IV 50 CLEOCIN 900 MG/50 mL 900 50 mg In 50 ml @ 100 mls/hr IV Q8H [facility] Rx#:[id number] Oral 360 360 360 Output: Urine 600 Void 600 Other: Total, Intake Amount 120 240 120 Total, Output Amount 600 # Voids Void 2 - Exam Breasts: Present: deferred Cardiovascular: Present: Regular rate Lungs: Present: Clear to auscultation Abdomen: Present: soft Vulva: both: normal Uterus: Present: fundal height below umbilicus Extremities: Present: normal Deep Tendon Reflex Grade: Normal +2 - Labs Labs: Abnormal lab results 05/06/22 Range/Units 16:02 WBC 20.3 H (4.5-11.0) K/mm3 RBC 2.61 L (3.65-5.03) M/mm3 Hgb 7.4 L D (10.1-14.3) gm/dl Hct 22.9 L D (30.3-42.9) % RDW 15.3 H (13.2-15.2) % Seg Neuts % (Manual) 85.0 H (40.0-70.0) % Lymphocytes % (Manual) 11.0 L (13.4-35.0) % Seg Neutrophils # Man 17.3 H (1.8-7.7) K/mm3
--- NOTE | 2022-05-06 19:20 | Discharge Summary ---
Providers - Providers Date of Admission: 04/13/22 07:20 Date of discharge: 05/06/22 Attending physician: MARY KAY TURNER Primary care physician: MARY KAY TURNER Hospitalization Reason for admission: labor Delivery: Procedure: other Episiotomy: none Laceration: none, 1st degree complications: retained placenta (D&C) Discharge diagnosis: delivery baby: male Hospital course: Was in the hospital for 3 weeks with PPROM and delivered a male baby. She had retained products of conception and was taken to the OR yesterday for D&C. Condition at discharge: Good Disposition: 01 HOME / SELF CARE / HOMELESS Plan - Provider Discharge Summary Activity: routine, no sex for 6 weeks, no strenuous exercise Diet: routine Instructions: routine Additional instructions: [] Smoking cessation referral if applicable(refer to patient education folder for contact #) [] Refer to [facility] Booklet Call your doctor immediately for: * Fever > 100.5 * Heavy vaginal bleeding ( >1 pad per hour) * Severe persistent headache * Shortness of breath * Reddened, hot, painful area to leg or breast * Drainage or odor from incision. * Keep incision clean and dry at all times and follow doctor's instructions regarding bathing/showering - Follow up plan Follow up: MARY KAY TURNER MD [Primary Care Provider] - 6 Weeks
[2022-05-06 20:20] VITALS: BP 121/79
[2022-05-06] MEDS ORDERED: FERROUS SULFATE 325 MG TAB PO SCH (22:00)
== END 2022-05-06 21:00 | disposition home or self-care (01) | DRG 805 ==
LOC: TRG 05:11 → APU 05:12 → TRG 07:19 → APU 07:20 → LD 09:18 → OB 05-05 15:09
PROVIDERS: ADMIT Obstetrics & Gynecology; ATTEND Obstetrics & Gynecology
PROC: 10E0XZZ Delivery of Products of Conception, External Approach (ICD-10-PCS; principal; 2022-05-05)
PROC: 10D17Z9 Manual Extraction of Products of Conception, Retained, Via Natural or Artificial Opening (ICD-10-PCS; 2022-05-05)
PROC: 0UQMXZZ Repair Vulva, External Approach (ICD-10-PCS; 2022-05-05)
DX: O42.013 Preterm premature rupture of membranes, onset of labor within 24 hours of rupture, third trimester (principal); O60.14X0 Preterm labor third trimester with preterm delivery third trimester, not applicable or unspecified; Z37.0 Single live birth; O26.62 Liver and biliary tract disorders in childbirth; Z3A.30 30 weeks gestation of pregnancy; K76.0 Fatty (change of) liver, not elsewhere classified; Z20.822 Contact with and (suspected) exposure to COVID-19; O36.8130 Decreased fetal movements, third trimester, not applicable or unspecified; O99.62 Diseases of the digestive system complicating childbirth; R19.7 Diarrhea, unspecified; K59.00 Constipation, unspecified; O71.82 Other specified trauma to perineum and vulva; O73.1 Retained portions of placenta and membranes, without hemorrhage; Z88.8 Allergy status to other drugs, medicaments and biological substances
CPT/HCPCS: 36415; 71045; 76700; 76705; 76815; 76816; 76819; 76830; 76857; 80048; 80053; 80061; 80074; 80076; 80307; 81001; 81015; 82150; 82239; 83615; 83690; 83735; 83880; 84112; 84550; 85007; 85025; 85027; 85610; 85730; 86850; 86900; 86901; 87086; 87116; 87324; 87493; 88305; 93306; 96360; 96374; 96375; G0378; J3490; J7502; C8929; J0290; J0330; J0595; J0702; J1100; J1580; J1885; J2270; J2370; J2405; J2590; J2704; J3010; J3370; J3475; J7030; J7040; J7120; U0003